=== PATIENT | female | born 1940 | race Caucasian/White ===

== ENCOUNTER 2024-09-22 12:45 | Emergency (ER) | payer MEDICARE, MEDICAID, SELFPAY ==
--- NOTE | ~2024-09-22 | XR_ITS ---
CLINICAL HISTORY: pain, injury, fx 2 view left wrist Comparison: None Findings: Markedly displaced comminuted fracture of the distal radius with articular surface extension to the radiocarpal joint. There is roughly 15 mm of posterior displacement, and roughly 24 mm of lateral displacement of the distal radial fracture fragments. There is a well corticated 18 mm ossific focus adjacent to the distal ulna. No significant arthritic change or erosions. No radiopaque foreign body. IMPRESSION: Markedly displaced comminuted distal radial fracture. This document has been electronically signed by: Naveed Seay MD on 09/22/2024 13:36:18
--- NOTE | ~2024-09-22 | XR_ITS ---
CLINICAL HISTORY: post reduction 2 view left wrist Comparison: 09/22/2024 01:18 PM EST Findings: A cast is present, obscuring fine bony detail. There is a moderately displaced impacted fracture of the distal radius with articular surface extension to the radiocarpal joint. Joint space narrowing and periarticular osteophyte formation at the radiocarpal, scaphotrapezial, and 1st carpometacarpal joints is present, indicating osteoarthritis. No radiopaque foreign body. IMPRESSION: Distal radial fracture. This document has been electronically signed by: Naveed Seay MD on 09/22/2024 16:31:28
--- NOTE | ~2024-09-22 | CT_ITS ---
CLINICAL HISTORY: fall, pain CT head without contrast Comparison: None Findings: Examination is limited by obliquity. No intra-axial mass, midline shift, hydrocephalus, or acute hemorrhage. Mild diffuse cerebral volume loss. Mild degree of patchy low-density within the periventricular and subcortical white matter. There is mild mucosal thickening within the right posterior ethmoid air cell. Mastoids are clear. The orbits are within normal limits. No skull fracture. IMPRESSION: 1. No acute intracranial findings. This document has been electronically signed by: Naveed Seay MD on 09/22/2024 14:27:26
--- NOTE | ~2024-09-22 | CT_ITS ---
CLINICAL HISTORY: fall, pain CT cervical spine without contrast Comparison: None Findings: Vertebral alignment is within normal limits. Multilevel disc space narrowing and endplate osteophyte formation, as well as facet hypertrophy. No acute fractures or dislocations. Visualized intracranial contents are unremarkable. Soft tissues of the neck are normal. No consolidation or effusion at the lung apices. IMPRESSION: No acute findings. This document has been electronically signed by: Naveed Seay MD on 09/22/2024 13:45:25
--- NOTE | 2024-09-22 12:55 | ED_ITS ---
HPI - General Adult General Chief complaint: Extremity Injury, Upper Stated complaint: L WRIST FX/PAIN/SWOLLEN,PORT XRAY @ SNF PER EMS Time Seen by Provider: 09/22/24 12:53 Source: patient, family (patient's daughter) and EMS Mode of arrival: EMS Limitations: other (patient has a history of alzheimer's) History of Present Illness ED Provider: Kesha Mauro PA-C HPI narrative: Patient is an 84 year old assigned female at with a history of alzheimer's disease, dementia, anemia, osteoarthritis, HTN, anxiety, and CAD presenting to the emergency department today with left wrist pain / deformity after a trip and fall. Patient states that she isn't sure what happened but her wrist is swollen. Patient denies any dizziness, lightheadedness, abdominal pain, nausea, vomiting, fever, chills, blurry vision, double vision, loss of vision, chest pain, difficulty breathing, shortness of breath, back pain, night sweats, pain with urination, increased urinary frequency, increased urinary urgency, blood in her urine or stool, syncope or a near syncopal episode, bowel incontinence, bladder incontinence, or any other complaints at this time. Onset (ago): hour(s) (at 0500 on 09/22/2024) Location: left (wrist) Relieving factors: none Exacerbating factors: none Associated symptoms: denies other symptoms Treatments prior to arrival: none Related Data Previous Rx's ?Medication ?Instructions ?Recorded amoxicillin 875 mg-potassium 1 tab PO BID 10 days #20 tabs 09/22/24 clavulanate 125 mg tablet amoxicillin 875 mg-potassium 1 tab PO BID 10 days #20 tabs 09/22/24 clavulanate 125 mg tablet Allergies Allergy/AdvReac Type Severity Reaction Status Date / Time aspirin Allergy Unknown Unknown Verified 09/22/24 13:02 Sulfa (Sulfonamide Allergy Unknown Unknown Verified 09/22/24 13:01 Antibiotics) Review of Systems 2 Constitutional: Constitutional: Reports no additional constitutional complaints, Denies chills, Denies fever(s) and Denies night sweats Eyes: Eyes: Reports no additional eye complaints, Denies blurry vision, Denies change in vision, Denies diplopia, Denies eye discharge, Denies loss of vision and Denies eye pain ENT: Denies dizziness Cardiovascular: Cardiovascular: Reports no additional cardiovascular complaints, Denies chest pain, Denies lightheadedness, Denies Loss of Consciousness and Denies dyspnea Respiratory: Respiratory: Reports no additional respiratory complaints and Denies dyspnea Gastrointestinal: Gastrointestinal: Reports no additional gastrointestinal complaints, Denies abdominal pain, Denies melena, Denies hematochezia, Denies change in bowel habits and Denies change in stool character Genitourinary: Genitourinary: Denies hematuria, Denies urinary frequency, Denies dysuria, Denies urinary incontinence, Denies urinary hesitancy and Denies urinary urgency Musculoskeletal: Musculoskeletal: Reports no additional musculoskeletal complaints, Denies numbness and Denies tingling Comments: left wrist pain, swelling Neurologic: Reports confusion (per her baseline, pleasant), Denies dizziness, Denies loss of vision, Denies numbness and Denies tingling Psychiatric: Psychiatric: Reports no additional psychiatric complaints and Reports confusion (per her baseline, pleasant) Endocrine: Endocrine: Reports no additional endocrine complaints Hematologic/Lymphatic: Hematologic/Lymphatic: Reports no additional hematologic/lymphatic complaints Allergic/Immunologic: Allergic/Immunologic: Reports no additional allergic/immunologic complaints PMFSH Past Medical History Attestation statement: The following information was validated with the patient. Source: old records reviewed and nursing notes reviewed Social History Social History Advance Directives: No Advance Directives Information Provided: No Physical Exam ED Vital Signs: Vital Signs - 24 hr 09/22/24 13:01 09/22/24 14:56 Temperature 97.8 F Pulse Rate 79 73 Respiratory Rate 18 17 Blood Pressure 155/64 H 189/79 H Pulse Oximetry 97 Oxygen Delivery Method Room Air BMI result Body Mass Index 21.9 Const General: confusion (per her baseline, pleasant) Nutritional Appearance: well nourished Orientation/consciousness: confusion (per her baseline, pleasant) Limitations: no limitations HENIN Head: Yes normal to inspection and Yes atraumatic Ears: hearing grossly normal bilaterally and external ears normal General nose exam: Normal external nose present, no nasal discharge noted and no epistaxis Face and sinus: Yes normal facial exam, No abrasion and No laceration Mouth: Normal oral and palatal mucosa present, no drooling and no muffled voice Eyes General: appearance normal, both eyes and all related structures Periorbital: periorbital findings normal Eyelids: Yes eyelids normal Conjunctivae: conjunctivae normal Pupils: Equal, round and reactive pupils present EOM: EOMs intact bilaterally Neck Neck: Yes normal visual inspection, Yes full ROM and Yes no lymphadenopathy Chest Chest palpation & inspection: normal inspection of the chest Resp Effort & Inspection: normal respiratory effort and able to speak in complete sentences GI Inspection: Yes normal to inspection Neuro General: confusion (per her baseline, pleasant) Cranial nerves: Yes Equal, round and reactive pupils present Cognition (Neuro): normal cognition Extrem Other: left dorsal wrist swollen, deformed, and bruised with limited ROM secondary to pain General: Yes capillary refill normal Psych Appearance: grossly normal Mental Status: mental status grossly normal Affect: normal affect Attitude: cooperative Thought process: Normal thought process present Thought content: Normal thought content present Insight: Good insight present (Psych) Medications Administered Discontinued Medications Generic Name Dose Route Start Last Admin Trade Name Freq PRN Reason Stop Dose Admin Acetaminophen 975 mg 09/22/24 13:40 09/22/24 13:57 Acetaminophen 325 Mg Tablet PO 09/22/24 13:41 975 mg ONCE ONE Administration Diazepam 2 mg 09/22/24 13:40 09/22/24 13:57 Diazepam 2 Mg Tablet PO 09/22/24 13:41 2 mg ONCE ONE Administration Ampicillin Sodium/Sulbactam 100 mls @ 200 mls/hr 09/22/24 14:59 09/22/24 16:10 Sodium 3 gm/ Sodium Chloride IV 09/22/24 15:28 Infused ONCE ONE Infusion Procedures Orthopedic Fracture Reduction Fracture #1: Time Out Performed: Yes Side: left Fracture Reduction Location: radius Technique: direct manipulation Post Reduction X-rays Demonstrate: anatomical reduction Post-reduction neuro exam: intact Post-reduction vascular exam: intact Splint Applied: Yes Patient Tolerated Procedure: well Orthopedic Splinting/Casting Injury #1: Side: left Upper Extremity Injury Location: wrist Upper Extremity Immobilizer: sling/shoulder immobilizer and sugar tong splint Medical Decision Making Medical Decision Making MDM Narrative: Patient is an 84 year old assigned female at with a history of alzheimer's disease, dementia, anemia, osteoarthritis, HTN, anxiety, and CAD presenting to the emergency department today with left wrist pain / deformity after a trip and fall. Patient's physical exam was as noted in the physical exam portion of this note. Patient's left wrist abrasion is on the ulnar aspect of the wrist and does not appear to be involved in the fracture however, given proximity, will cover with prophylactic antibiotic. Patient's left wrist x-ray showed a markedly displaced comminuted distal radial fracture. Patient's CT head and c-spine showed no acute process. I spoke to the orthopedic team who recommended reducing the fracture, splinting in a sugar tong, the prophylactic antibiotic, and having the patient follow up in the clinic on 09/24/2024. I explained my physical exam findings as well as all test results to the patient and the patient's daughter. I answered all questions asked by the patient and the patient's daughter. Patient's left wrist was reduced, without incident. Patient's PMS was intact prior to and after reduction. Patient's left wrist was placed in a sugar tong splint, without incident. Patient's PMS was intact prior to and after splint placement. Patient's left upper extremity was placed in a sling, without incident. I stressed the importance of the patient taking her medication as directed (either prescribed or as the over the counter packaging recommends). I stressed the importance of the patient following up with her primary care provider and the orthopedic team as noted. I stressed the importance of the patient returning to the emergency department immediately if her symptoms were to worsen or if she were to develop any dizziness, shortness of breath, difficulty breathing, chest pain, blurry vision, loss of vision, nausea, vomiting, abdominal pain, fever, chills, back pain, or any other complaints. Patient and the patient's daughter verbalized agreement and understanding with this treatment plan and discharge. Differential Diagnosis Differential Diagnoses: The differential diagnosis associated with the presentation includes Left wrist fracture Fall Admission/Observation Consideration of admission/observation: Escalation of care including admission/observation considered Patient would have been admitted to the hospital had her work up had any findings where hospital admission was appropriate and her clinical presentation warranted hospital admission. Consult Healthcare Provider Management of the patient was discussed with: Manager Membership (spoke to the orthopedic team as noted in the MDM Rationale portion of this note.) Independent Interpretation I performed an independent interpretation of an: Plain X-Ray and CT Scan Interpretation: My interpretation is in agreement with the radiologist's impression of these imaging studies. L CLINICAL HISTORY: pain, injury, fx 2 view left wrist Comparison: None Findings: Markedly displaced comminuted fracture of the distal radius with articular surface extension to the radiocarpal joint. There is roughly 15 mm of posterior displacement, and roughly 24 mm of lateral displacement of the distal radial fracture fragments. There is a well corticated 18 mm ossific focus adjacent to the distal ulna. No significant arthritic change or erosions. No radiopaque foreign body. IMPRESSION: Markedly displaced comminuted distal radial fracture. This document has been electronically signed by: Naveed Seay MD on 09/22/2024 13:36:18 Dictated By: Naveed Seay MD Signed By: Electronically signed by Naveed Seay MD 09/22/24 1336 Report Number: [id number]: Total DLP = 210.00 mGy-cm CLINICAL HISTORY: fall, pain CT cervical spine without contrast Comparison: None Findings: Vertebral alignment is within normal limits. Multilevel disc space narrowing and endplate osteophyte formation, as well as facet hypertrophy. No acute fractures or dislocations. Visualized intracranial contents are unremarkable. Soft tissues of the neck are normal. No consolidation or effusion at the lung apices. IMPRESSION: No acute findings. This document has been electronically signed by: Naveed Seay MD on 09/22/2024 13:45:25 Dictated By: Naveed Seay MD Signed By: Electronically signed by Naveed Seay MD 09/22/24 1346 Report Number: [id number]: Total DLP = 722.00 mGy-cm CLINICAL HISTORY: fall, pain CT head without contrast Comparison: None Findings: Examination is limited by obliquity. No intra-axial mass, midline shift, hydrocephalus, or acute hemorrhage. Mild diffuse cerebral volume loss. Mild degree of patchy low-density within the periventricular and subcortical white matter. There is mild mucosal thickening within the right posterior ethmoid air cell. Mastoids are clear. The orbits are within normal limits. No skull fracture. IMPRESSION: 1. No acute intracranial findings. This document has been electronically signed by: Naveed Seay MD on 09/22/2024 14:27:26 Dictated By: Naveed Seay MD Signed By: Electronically signed by Naveed Seay MD 09/22/24 1429 Radiology Impression Discussion of test interpretation with radiology: I have reviewed the radiologist's reading. Independent Historian Clinical information obtained from an independent historian. History obtained from or confirmed by: EMS (EMS provided additional history and confirmed history provided by SNF staff) and Other (patient's daughter provided additional history and confirmed the history given by SNF staff) Critical Care Time Critical Care Time Critical Care Time: Yes Total Critical Care Time: 34 Attestation: I spent 34 minutes of Critical Care Time with this patient. This does not include time spent on separately reported billable procedures. Discharge Plan Discharge Clinical Impression: Fracture of wrist, Abrasion Patient Disposition: Xfer SNF Transfer Details: Back to [place] Care Instructions: Wrist Fracture in Adults (ED), Abrasion (ED) Additional Instructions: Take your medication as prescribed. Do NOT get your splint wet. Do NOT remove your splint. If you have any change in sensation, movement, or color of your left fingers - you may loosen the outer KAYLEE wraps. If you find yourself loosening the KAYLEE wraps to the point of seeing the white splint material underneath - STOP and proceed to your closest Emergency Department immediately. Follow up with your primary care provider and the orthopedic office (they would like to see you in the office on 09/24/2024). Return to the emergency department immediately if your symptoms worsen or if you develop any dizziness, shortness of breath, difficulty breathing, chest pain, blurry vision, loss of vision, nausea, vomiting, abdominal pain, fever, chills, back pain, or any other complaints. Prescriptions: New amoxicillin-pot clavulanate 875-125 mg tablet 1 tab PO BID 10 Days Qty: 20 0RF amoxicillin-pot clavulanate 875-125 mg tablet 1 tab PO BID 10 Days Qty: 20 0RF Referrals: [facility] [Provider Group] (Call to establish and follow up with an orthopedic provider. ) Louis Brownlee MD [Primary Care Provider] - Print Language: Irish
[2024-09-22 12:56] VITALS: BP 148/66; PULSE 80
[2024-09-22 13:01] VITALS: BP 155/64; PULSE 79; RESP 18; TEMP 36.6; BMI 21.9
[2024-09-22] MEDS: Acetaminophen 325 MG TABLET 975 MG PO (13:57)
[2024-09-22] MEDS: diazePAM 2 MG TABLET PO (13:57)
[2024-09-22 14:56] VITALS: BP 189/79; PULSE 73; RESP 17; O2SAT 97
--- NOTE | 2024-09-22 15:09 | PC.NURSE ---
no blood cultures need per provider
[2024-09-22] MEDS: Ampicillin Sodium/Sulbactam Na 3 GM in 0.9 % Sodium Chloride 100 ML IV (15:14)
[2024-09-22] MEDS: Diphth,Pertus(ACell),Tet Adult 0.5 ML SYRINGE IM (16:42)
[2024-09-22 17:01] VITALS: BP 169/69; PULSE 75; RESP 18; TEMP 36.6; O2SAT 97
== END 2024-09-22 17:03 | disposition skilled nursing facility (03) ==
PROVIDERS: Emergency Provider Emergency Medicine; PCP Family Medicine
DX: S62.102A Fracture of unspecified carpal bone, left wrist, initial encounter for closed fracture (principal); S60.812A Abrasion of left wrist, initial encounter; F02.80 Dementia in other diseases classified elsewhere, unspecified severity, without behavioral disturbance, psychotic disturbance, mood disturbance, and anxiety; G30.9 Alzheimer's disease, unspecified; M25.532 Pain in left wrist; M25.531 Pain in right wrist; M54.2 Cervicalgia; R41.0 Disorientation, unspecified; R51.9 Headache, unspecified; I10 Essential (primary) hypertension; I25.10 Atherosclerotic heart disease of native coronary artery without angina pectoris; W01.0XXA Fall on same level from slipping, tripping and stumbling without subsequent striking against object, initial encounter; Y93.9 Activity, unspecified; Y92.9 Unspecified place or not applicable; Y99.8 Other external cause status; Z79.899 Other long term (current) drug therapy; Z23 Encounter for immunization
CPT/HCPCS: 25605; 29125; 70450; 72125; 73100; 73110; 90471; 90715; 96365; 99284; J0295

== ENCOUNTER → 2024-09-22 13:01 | Outpatient (BNV) | payer MEDICARE, MEDICAID, SELFPAY | PROVIDERS: Emergency Provider Emergency Medicine; PCP Family Medicine; Visit Provider Radiology Diagnostic Radiology | DX: M54.2 Cervicalgia (principal); R51.9 Headache, unspecified; S52.502A Unspecified fracture of the lower end of left radius, initial encounter for closed fracture; M25.531 Pain in right wrist; W01.0XXA Fall on same level from slipping, tripping and stumbling without subsequent striking against object, initial encounter | CPT/HCPCS: 70450; 72125; 73100; 73110 ==

== ENCOUNTER 2024-09-24 09:58 | Outpatient (REF) | payer MEDICARE, MEDICAID, SELFPAY ==
--- NOTE | ~2024-09-24 | XR_ITS ---
EXAMINATION: XR WRIST, LEFT CLINICAL INFORMATION: M25.532 - Pain in left wrist COMPARISON: 09/22/2024. TECHNIQUE: PA, lateral, and oblique views of the left wrist. FINDINGS: Casting material overlies the wrist, obscuring fine bony detail. Redemonstration of a moderately displaced, impacted comminuted fracture of the distal radius which is intra-articular. There is minimal dorsal angulation. There is what appears to be worsened dorsal displacement. There is persistent impaction. Disruption of the DRUJ, similar. No definite healing identified. Soft tissue swelling persists. No change in the appearance of the carpus. Postop changes at the base of the thumb. XR/XR wrist LT min 3V IMPRESSION: 1. Redemonstration of moderately displaced impacted comminuted fracture of the distal radius which is are intra-articular. Although projectional variance is present, there appears to be worsened dorsal displacement when compared with 09/22/2024 casted view. Electronically signed by: Ronak Harper MD 09/25/2024 01:41 PM BORIS
--- OUTSIDE RECORDS SUMMARY | 2024-09-25 11:57 | XMS_ITS | Encounter Summary ---
Author Organization [facility] Address [address] [place] [address] Care Team Providers Care Cylinder Machine Operator Name Role Phone Louis Brownlee MD Primary Care Provider [phone] Encounter Details Date Type Department Care Team (Late st Contact Info) Description 07/04/2024 Lab Requisition [facility] - Main Lab [address] [facility] [place] [address] Louis Brownlee MD [address] [facility] [address] [place], [phone] Altered mental status, unspecified; Other correction (current) drug therapy Social History Tobacco Use [...] PM EST Altered mental status, unspecified Other tank terminal gauger (current) drug therapy URINALYSIS WITH REFLEX MICROSCOPIC AND CULTURE Routine 07/03/2024 3:00 PM EST Altered mental status, unspecified Other tank terminal gauger (current) drug therapy CULTURE URINE Routine 07/03/2024 3:00 PM EST Altered mental status, unspecified Other correction (current) drug therapy documented in this encounter Results * (ABNORMAL) Urinalysis with reflex microscopic and culture (07/03/2024 3:00 PM EST) Specific [place] Urine 1.023 1.003 - 1.030 LAB URINALYSIS - AUTOMATED METHOD 07/04/2024 10:47 AM [facility] pH, Urine 6.0 5.0 - 8.0 pH LAB URINALYSIS - AUTOMATED METHOD 07/04/2024 10:47 AM [facility] Leukocytes, Urine Large(A) Negative LAB URINALYSIS - AUTOMATED METHOD 07/04/2024 10:47 AM [facility] Nitrite, Urine Negative Negative LAB URINALYSIS - AUTOMATED METHOD 07/04/2024 10:47 AM [facility] Protein, Urine 30(A) <=Trace mg/dL LAB URINALYSIS - AUTOMATED METHOD 07/04/2024 10:47 AM [facility] Glucose, Urine Negative Negative mg/dL LAB URINALYSIS - AUTOMATED METHOD 07/04/2024 10:47 AM [facility] Ketones, Urine Trace(A) Negative mg/dL LAB URINALYSIS - AUTOMATED METHOD 07/04/2024 10:47 AM [facility] Urobilinogen , Urine 0.2 0.2 - 1.0 mg/dL LAB URINALYSIS - AUTOMATED METHOD 07/04/2024 10:47 AM [facility] Bilirubin, Urine Negative Negative LAB URINALYSIS - AUTOMATED METHOD 07/04/2024 10:47 AM [facility] Blood, Urine Trace(A) Negative LAB URINALYSIS - AUTOMATED METHOD 07/04/2024 10:47 AM [facility] RBC, Urine 6.9(H) 0 - 4 /HPF LAB URINALYSIS - AUTOMATED METHOD 07/04/2024 10:47 AM [facility] WBC, Urine 1,532.2(H) 0 - 4 /HPF LAB URINALYSIS - AUTOMATED METHOD 07/04/2024 10:47 AM [facility] Squamous Epithelial, Urine 34 0 - 60 /LPF LAB URINALYSIS - AUTOMATED METHOD 07/04/2024 10:47 AM [facility] Crystals, Urine Light Calcium Oxalate crystals. /LPF LAB URINALYSIS - AUTOMATED METHOD 07/04/2024 10:47 AM [facility] Bacteria, Urine Many(A) Negative /HPF LAB URINALYSIS - AUTOMATED METHOD 07/04/2024 10:47 AM [facility] Hyaline Casts, Urine 0.9 0 - 3 /LPF LAB URINALYSIS - AUTOMATED METHOD 07/04/2024 10:47 AM [facility] Urine Urine specimen obtained by clean catch procedure / Unknown Non-blood Collection / Unknown 07/03/2024 3:00 PM EST 07/04/2024 9:23 AM EST us Louis Brownlee MD LAB URINE ORDERABLES Final Resul t Performing Organization Address [facility] de Phone Number [facility] [address] [place] [address], [place] [phone] * (ABNORMAL) Culture urine (07/03/2024 3:00 PM EST) Culture, Urine >100,000 CFU/mL Aerococcus urinae(A) EMILY 07/06/2024 1:59 PM [facility] Comment: Susceptibility testing not routinely [...] ORDER PATTI Final Result Performing Organization Address City/[facility]/ZIP Co de Phone Number [facility] [address] [place] [address], [place] [phone] documented in this encounter Visit Diagnoses Diagnosis Altered mental status, unspecified Other tank terminal gauger (current) drug therapy documented in this encounter Care Teams Cylinder Machine Operator Relationship Specialty Start Date End Date Louis Brownlee MD [address] [place] [address], [phone] PCP - General Family Medicine 07/04/24 documented as of this encounter
--- OUTSIDE RECORDS SUMMARY | 2024-09-25 11:57 | XMS_ITS | Encounter Summary ---
Author Organization [facility] Address [address] [place] [address] Care Team Providers Care Composing Room Machinist Apprentice Name Role Phone Louis Brownlee MD Primary Care Provider [phone] Encounter Details Date Type Department Care Team (Late st Contact Info) Description 07/16/2024 Lab Requisition [facility] - Main Lab [address] [place] [address] Louis Brownlee MD [address] [place] [address] [address] [place], [phone] Essential (primary) hypertension Social History Tobacco [...] LAB CHEMISTRY METHOD 07/17/2024 11:42 AM EST [facility] Potassium 4.3 3.5 - 5.5 mmol/L LAB CHEMISTRY METHOD 07/17/2024 11:42 AM EST [facility] Chloride 104 96 - 110 mmol/L LAB CHEMISTRY METHOD 07/17/2024 11:42 AM [facility] CO2 31 21 - 32 mmol/L LAB CHEMISTRY METHOD 07/17/2024 11:42 AM [facility] Anion Gap 4 3 - 11 LAB CHEMISTRY METHOD 07/17/2024 11:42 AM [facility] Glucose 82 70 - 100 mg/dL LAB CHEMISTRY METHOD 07/17/2024 11:42 AM [facility] BUN 20 5 - 25 mg/dL LAB CHEMISTRY METHOD 07/17/2024 11:42 AM [facility] Creatinine 0.82 0.50 - 1.10 mg/dL LAB CHEMISTRY METHOD 07/17/2024 11:42 AM [facility] eGFR 70 >=60 mL/min/1. 73m2 LAB CHEMISTRY METHOD 07/17/2024 11:42 AM [facility] Comment:Calculation based on the??Chronic Kidney Disease Epidemiology Collaboration (CKD-EPI) equation refit??without adjustment for race. BUN/Creatinine Ratio 24.4 LAB CHEMISTRY METHOD 07/17/2024 11:42 AM [facility] Calcium 8.9 8.5 - 10.5 mg/dL LAB CHEMISTRY METHOD 07/17/2024 11:42 AM [facility] AST (SGOT) 16 10 - 42 unit/L LAB CHEMISTRY METHOD 07/17/2024 11:42 AM [facility] ALT (SGPT) 11 10 - 60 unit/L LAB CHEMISTRY METHOD 07/17/2024 11:42 AM [facility] Alkaline Phosphatase 83 42 - 121 unit/L LAB CHEMISTRY METHOD 07/17/2024 11:42 AM [facility] Total Protein 6.5 6.0 - 8.0 g/dL LAB CHEMISTRY METHOD 07/17/2024 11:42 AM [facility] Albumin 3.3 3.2 - 5.0 g/dL LAB CHEMISTRY METHOD 07/17/2024 11:42 AM [facility] Total Bilirubin 0.3 0.0 - 1.4 mg/dL LAB CHEMISTRY METHOD 07/17/2024 11:42 AM [facility] Blood Venous blood specimen / Unknown Venipuncture / Unknown 07/17/2024 7:35 AM EST 07/17/2024 10:21 AM EST us Louis Brownlee MD LAB BLOOD ORDERABLES Final Resul t [facility] [address] [place] [address], * (ABNORMAL) Complete blood count (07/17/2024 7:35 AM EST) WBC 14.3(H) 4.8 - 10.8 K/mcL LAB HEMETOLOGY METHOD 07/17/2024 10:44 AM [facility] RBC 3.80 3.80 - 4.80 M/mcL LAB HEMETOLOGY METHOD 07/17/2024 10:44 AM [facility] Hemoglobin 11.1(L) 11.5 - 16.0 g/dL LAB HEMETOLOGY METHOD 07/17/2024 10:44 AM [facility] Hematocrit 36.2 35.0 - 47.0 % LAB HEMETOLOGY METHOD 07/17/2024 10:44 AM [facility] MCV 96.0 79.0 - 98.0 FL LAB HEMETOLOGY METHOD 07/17/2024 10:44 AM [facility] MCH 29.4 27.0 - 32.0 pcg LAB HEMETOLOGY METHOD 07/17/2024 10:44 AM [facility] MCHC 30.7(L) 32.0 - 37.0 g/dL LAB HEMETOLOGY METHOD 07/17/2024 10:44 AM [facility] RDW 12.2 11.0 - 15.0 % LAB HEMETOLOGY METHOD 07/17/2024 10:44 AM EST [facility] Platelets 419(H) 130 - 400 K/mcL LAB HEMETOLOGY METHOD 07/17/2024 10:44 AM EST [facility] MPV 10.2 7.0 - 11.0 FL LAB HEMETOLOGY METHOD 07/17/2024 10:44 AM EST [facility] NRBC 0.0 <1.0 % LAB HEMETOLOGY METHOD 07/17/2024 10:44 AM EST [facility] NRBC Absolute 0.00 <0.10 K/mcL LAB HEMETOLOGY METHOD 07/17/2024 10:44 AM [facility] Blood Venous blood specimen / Unknown Venipuncture / Unknown 07/17/2024 7:35 AM EST 07/17/2024 10:09 AM EST us Louis Brownlee MD LAB BLOOD ORDERABLES Final Resul t [facility] [address] [place] [address], documented in this encounter Visit Diagnoses Diagnosis Essential (primary) hypertension Unspecified essential hypertension documented in this encounter Care Teams Composing Room Machinist Apprentice Relationship Specialty Start Date End Date Louis Brownlee MD [address] [place] [phone] PCP - General Family Medicine 07/04/24 documented as of this encounter
--- OUTSIDE RECORDS SUMMARY | 2024-09-25 11:57 | XMS_ITS | Encounter Summary ---
Author Organization [facility] Address [address] [place] [address] Care Team Providers Care Pit Boss Name Role Phone Louis Brownlee MD Primary Care Provider [phone] Encounter Details Date Type Department Care Team (Late st Contact Info) Description 07/09/2024 Lab Requisition [facility] - Main Lab [address] [place] [address] Louis Brownlee MD [address] [place] [address] [address] [place], [phone] Essential (primary) hypertension Social History Tobacco [...] LAB CHEMISTRY METHOD 07/10/2024 12:28 PM EST [facility] Potassium 4.6 3.5 - 5.5 mmol/L LAB CHEMISTRY METHOD 07/10/2024 12:28 PM EST [facility] Chloride 110 96 - 110 mmol/L LAB CHEMISTRY METHOD 07/10/2024 12:28 PM [facility] CO2 25 21 - 32 mmol/L LAB CHEMISTRY METHOD 07/10/2024 12:28 PM [facility] Anion Gap 7 3 - 11 LAB CHEMISTRY METHOD 07/10/2024 12:28 PM [facility] Glucose 81 70 - 100 mg/dL LAB CHEMISTRY METHOD 07/10/2024 12:28 PM [facility] BUN 41(H) 5 - 25 mg/dL LAB CHEMISTRY METHOD 07/10/2024 12:28 PM [facility] Creatinine 1.09 0.50 - 1.10 mg/dL LAB CHEMISTRY METHOD 07/10/2024 12:28 PM [facility] eGFR 50(L) >=60 mL/min/1. 73m2 LAB CHEMISTRY METHOD 07/10/2024 12:28 PM [facility] Comment:Calculation based on the??Chronic Kidney Disease Epidemiology Collaboration (CKD-EPI) equation refit??without adjustment for race. BUN/Creatinine Ratio 37.6 LAB CHEMISTRY METHOD 07/10/2024 12:28 PM [facility] Calcium 9.0 8.5 - 10.5 mg/dL LAB CHEMISTRY METHOD 07/10/2024 12:28 PM [facility] Blood Venous blood specimen / Unknown Venipuncture / Unknown 07/10/2024 7:02 AM EST 07/10/2024 11:40 AM EST us Louis Brownlee MD LAB BLOOD ORDERABLES Final Resul t [facility] [address] [place] [address], * (ABNORMAL) Complete blood count (07/10/2024 7:02 AM EST) WBC 14.8(H) 4.8 - 10.8 K/mcL LAB HEMETOLOGY METHOD 07/10/2024 12:20 PM [facility] RBC 3.60(L) 3.80 - 4.80 M/mcL LAB HEMETOLOGY METHOD 07/10/2024 12:20 PM [facility] Hemoglobin 10.7(L) 11.5 - 16.0 g/dL LAB HEMETOLOGY METHOD 07/10/2024 12:20 PM [facility] Hematocrit 35.1 35.0 - 47.0 % LAB HEMETOLOGY METHOD 07/10/2024 12:20 PM [facility] MCV 98.0 79.0 - 98.0 FL LAB HEMETOLOGY METHOD 07/10/2024 12:20 PM [facility] MCH 29.9 27.0 - 32.0 pcg LAB HEMETOLOGY METHOD 07/10/2024 12:20 PM [facility] MCHC 30.5(L) 32.0 - 37.0 g/dL LAB HEMETOLOGY METHOD 07/10/2024 12:20 PM [facility] RDW 12.7 11.0 - 15.0 % LAB HEMETOLOGY METHOD 07/10/2024 12:20 PM [facility] Platelets 469(H) 130 - 400 K/mcL LAB HEMETOLOGY METHOD 07/10/2024 12:20 PM [facility] MPV 9.9 7.0 - 11.0 FL LAB HEMETOLOGY METHOD 07/10/2024 12:20 PM [facility] NRBC 0.0 <1.0 % LAB HEMETOLOGY METHOD 07/10/2024 12:20 PM [facility] NRBC Absolute 0.00 <0.10 K/mcL LAB HEMETOLOGY METHOD 07/10/2024 12:20 PM [facility] Blood Venous blood specimen / Unknown Venipuncture / Unknown 07/10/2024 7:02 AM EST 07/10/2024 11:40 AM EST us Louis Brownlee MD LAB BLOOD ORDERABLES Final Resul t [facility] ([facility]) [facility] [address] [place] [address], documented in this encounter Visit Diagnoses Diagnosis Essential (primary) hypertension Unspecified essential hypertension documented in this encounter Care Teams Pit Boss Relationship Specialty Start Date End Date Louis Brownlee MD [address] [place] [address] [address] [place], [phone] PCP - General Family Medicine 07/04/24 documented as of this encounter
--- OUTSIDE RECORDS SUMMARY | 2024-09-25 11:58 | XMS_ITS | Clinical Summary ---
Author Organization 299 [facility] Address [address] [place] [address] Phone Care Team Providers Care District Fire Management Officer Name Role Phone Louis Brownlee MD Primary Care Provider [phone] Encounters Date Type Department Care Team Description 07/27/2024 Lab Requisition [facility] Lab [address] [place] [phone] Louis Brownlee MD Atherosclerotic heart disease of [place] coronary artery without angina pectoris; Anemia, unspecified 07/16/2024 Lab Requisition [facility] Lab [address] [place] [phone] Louis Brownlee MD Essential (primary) hypertension 07/09/2024 Lab Requisition [facility] Lab [address] [place] [phone] Louis Brownlee MD Essential (primary) hypertension 07/04/2024 Lab Requisition [facility] [address] [place] [phone] Louis Brownlee MD Altered mental status, unspecified; Other salvage determiner (current) drug therapy from Last 3 Months [...] 4:47 AM EST Atherosclerotic heart disease of [place] coronary artery without angina pectoris Anemia, unspecified [...] PM EST Altered mental status, unspecified Other residential (current) drug therapy URINALYSIS WITH REFLEX MICROSCOPIC AND CULTURE Routine 07/03/2024 3:00 PM EST Altered mental status, unspecified Other salvage determiner (current) drug therapy CULTURE URINE Routine 07/03/2024 3:00 PM EST Altered mental status, unspecified Other residential (current) drug therapy from Last 3 Months Results * (ABNORMAL) Complete blood count (07/29/2024 4:47 AM EST) Only the most recent of3 resultswithin the time period is included. WBC 11.4(H) 4.8 - 10.8 K/mcL LAB HEMETOLOGY METHOD 07/29/2024 9:28 AM [facility] RBC 3.20(L) 3.80 - 4.80 M/mcL LAB HEMETOLOGY METHOD 07/29/2024 9:28 AM [facility] Hemoglobin 9.4(L) 11.5 - 16.0 g/dL LAB HEMETOLOGY METHOD 07/29/2024 9:28 AM [facility] Hematocrit 31.1(L) 35.0 - 47.0 % LAB HEMETOLOGY METHOD 07/29/2024 9:28 AM [facility] MCV 96.9 79.0 - 98.0 FL LAB HEMETOLOGY METHOD 07/29/2024 9:28 AM [facility] MCH 29.3 27.0 - 32.0 pcg LAB HEMETOLOGY METHOD 07/29/2024 9:28 AM [facility] MCHC 30.2(L) 32.0 - 37.0 g/dL LAB HEMETOLOGY METHOD 07/29/2024 9:28 AM [facility] RDW 12.9 11.0 - 15.0 % LAB HEMETOLOGY METHOD 07/29/2024 9:28 AM EST [facility] Platelets 260 130 - 400 K/mcL LAB HEMETOLOGY METHOD 07/29/2024 9:28 AM EST [facility] MPV 10.4 7.0 - 11.0 FL LAB HEMETOLOGY METHOD 07/29/2024 9:28 AM EST [facility] NRBC 0.0 <1.0 % LAB HEMETOLOGY METHOD 07/29/2024 9:28 AM EST [facility] NRBC Absolute 0.00 <0.10 K/mcL LAB HEMETOLOGY METHOD 07/29/2024 9:28 AM EST [facility] Blood Venous blood specimen / Unknown Venipuncture / Unknown 07/29/2024 4:47 AM EST 07/29/2024 8:28 AM EST us Louis Brownlee MD LAB BLOOD ORDERABLES Final Resul t [facility] [address] [place] [address], * Comprehensive metabolic panel (07/17/2024 7:35 AM EST) Sodium 139 133 - 145 mmol/L LAB CHEMISTRY METHOD 07/17/2024 11:42 AM EST [facility] Potassium 4.3 3.5 - 5.5 mmol/L LAB CHEMISTRY METHOD 07/17/2024 11:42 AM [facility] Chloride 104 96 - 110 mmol/L LAB CHEMISTRY METHOD 07/17/2024 11:42 AM [facility] CO2 31 21 - 32 mmol/L LAB CHEMISTRY METHOD 07/17/2024 11:42 AM EST [facility] Anion Gap 4 3 - 11 LAB CHEMISTRY METHOD 07/17/2024 11:42 AM [facility] Glucose 82 70 - 100 mg/dL LAB CHEMISTRY METHOD 07/17/2024 11:42 AM [facility] BUN 20 5 - 25 mg/dL LAB CHEMISTRY METHOD 07/17/2024 11:42 AM [facility] Creatinine 0.82 0.50 - 1.10 mg/dL LAB CHEMISTRY METHOD 07/17/2024 11:42 AM [facility] eGFR 70 >=60 mL/min/1. 73m2 LAB CHEMISTRY METHOD 07/17/2024 11:42 AM [facility] Comment:Calculation based on the??Chronic Kidney Disease Epidemiology Collaboration (CKD-EPI) equation refit??without adjustment for race. BUN/Creatinine Ratio 24.4 LAB CHEMISTRY METHOD 07/17/2024 11:42 AM [facility] Calcium 8.9 8.5 - 10.5 mg/dL LAB CHEMISTRY METHOD 07/17/2024 11:42 AM [facility] AST (SGOT) 16 10 - 42 unit/L LAB CHEMISTRY METHOD 07/17/2024 11:42 AM [facility] ALT (SGPT) 11 10 - 60 unit/L LAB CHEMISTRY METHOD 07/17/2024 11:42 AM [facility] Alkaline Phosphatase 83 42 - 121 unit/L LAB CHEMISTRY METHOD 07/17/2024 11:42 AM [facility] Total Protein 6.5 6.0 - 8.0 g/dL LAB CHEMISTRY METHOD 07/17/2024 11:42 AM [facility] Albumin 3.3 3.2 - 5.0 g/dL LAB CHEMISTRY METHOD 07/17/2024 11:42 AM [facility] Total Bilirubin 0.3 0.0 - 1.4 mg/dL LAB CHEMISTRY METHOD 07/17/2024 11:42 AM [facility] Blood Venous blood specimen / Unknown Venipuncture / Unknown 07/17/2024 7:35 AM EST 07/17/2024 10:21 AM EST us Louis Brownlee MD LAB BLOOD ORDERABLES Final Resul t [facility] [address] [place] [address], [place] [phone] * (ABNORMAL) Basic metabolic panel (07/10/2024 7:02 AM EST) Sodium 142 133 - 145 mmol/L LAB CHEMISTRY METHOD 07/10/2024 12:28 PM [facility] Potassium 4.6 3.5 - 5.5 mmol/L LAB CHEMISTRY METHOD 07/10/2024 12:28 PM [facility] Chloride 110 96 - 110 mmol/L LAB CHEMISTRY METHOD 07/10/2024 12:28 PM [facility] CO2 25 21 - 32 mmol/L LAB CHEMISTRY METHOD 07/10/2024 12:28 PM [facility] Anion Gap 7 3 - 11 LAB CHEMISTRY METHOD 07/10/2024 12:28 PM [facility] Glucose 81 70 - 100 mg/dL LAB CHEMISTRY METHOD 07/10/2024 12:28 PM [facility] BUN 41(H) 5 - 25 mg/dL LAB CHEMISTRY METHOD 07/10/2024 12:28 PM [facility] Creatinine 1.09 0.50 - 1.10 mg/dL LAB CHEMISTRY METHOD 07/10/2024 12:28 PM [facility] eGFR 50(L) >=60 mL/min/1. 73m2 LAB CHEMISTRY METHOD 07/10/2024 12:28 PM [facility] Comment:Calculation based on the??Chronic Kidney Disease Epidemiology Collaboration (CKD-EPI) equation refit??without adjustment for race. BUN/Creatinine Ratio 37.6 LAB CHEMISTRY METHOD 07/10/2024 12:28 PM [facility] Calcium 9.0 8.5 - 10.5 mg/dL LAB CHEMISTRY METHOD 07/10/2024 12:28 PM [facility] Blood Venous blood specimen / Unknown Venipuncture / Unknown 07/10/2024 7:02 AM EST 07/10/2024 11:40 AM EST us Louis Brownlee MD LAB BLOOD ORDERABLES Final Resul t [facility] [address] [place] [address], [place] [phone] * (ABNORMAL) Urinalysis with reflex microscopic and culture (07/03/2024 3:00 PM EST) Specific [place] Urine 1.023 1.003 - 1.030 LAB URINALYSIS - AUTOMATED METHOD 07/04/2024 10:47 AM [facility] pH, Urine 6.0 5.0 - 8.0 pH LAB URINALYSIS - AUTOMATED METHOD 07/04/2024 10:47 AM [facility] Leukocytes, Urine Large(A) Negative LAB URINALYSIS - AUTOMATED METHOD 07/04/2024 10:47 AM [facility] Nitrite, Urine Negative Negative LAB URINALYSIS - AUTOMATED METHOD 07/04/2024 10:47 AM [facility] Protein, Urine 30(A) <=Trace mg/dL LAB URINALYSIS - AUTOMATED METHOD 07/04/2024 10:47 AM [facility] Glucose, Urine Negative Negative mg/dL LAB URINALYSIS - AUTOMATED METHOD 07/04/2024 10:47 AM [facility] Ketones, Urine Trace(A) Negative mg/dL LAB URINALYSIS - AUTOMATED METHOD 07/04/2024 10:47 AM [facility] Urobilinogen , Urine 0.2 0.2 - 1.0 mg/dL LAB URINALYSIS - AUTOMATED METHOD 07/04/2024 10:47 AM [facility] Bilirubin, Urine Negative Negative LAB URINALYSIS - AUTOMATED METHOD 07/04/2024 10:47 AM [facility] Blood, Urine Trace(A) Negative LAB URINALYSIS - AUTOMATED METHOD 07/04/2024 10:47 AM [facility] RBC, Urine 6.9(H) 0 - 4 /HPF LAB URINALYSIS - AUTOMATED METHOD 07/04/2024 10:47 AM [facility] WBC, Urine 1,532.2(H) 0 - 4 /HPF LAB URINALYSIS - AUTOMATED METHOD 07/04/2024 10:47 AM [facility] Squamous Epithelial, Urine 34 0 - 60 /LPF LAB URINALYSIS - AUTOMATED METHOD 07/04/2024 10:47 AM [facility] Crystals, Urine Light Calcium Oxalate crystals. /LPF LAB URINALYSIS - AUTOMATED METHOD 07/04/2024 10:47 AM [facility] Bacteria, Urine Many(A) Negative /HPF LAB URINALYSIS - AUTOMATED METHOD 07/04/2024 10:47 AM [facility] Hyaline Casts, Urine 0.9 0 - 3 /LPF LAB URINALYSIS - AUTOMATED METHOD 07/04/2024 10:47 AM [facility] Urine Urine specimen obtained by clean catch procedure / Unknown Non-blood Collection / Unknown 07/03/2024 3:00 PM EST 07/04/2024 9:23 AM EST us Louis Brownlee MD LAB URINE ORDERABLES Final Resul t [facility] [address] [place] [address], * (ABNORMAL) Culture urine (07/03/2024 3:00 PM EST) Culture, Urine >100,000 CFU/mL Aerococcus urinae(A) EMILY 07/06/2024 1:59 PM EST [facility] ([facility] Comment: Susceptibility testing not routinely performed. [...] MICROBIOLOGY - GENERAL ORDER PATTI Final Result [facility] ([facility]) [facility] [address] [place] [address], [place] [phone] from Last 3 Months Insurance MEDICARE MEDICAID - [place] Care Teams District Fire Management Officer Relationship Specialty Start Date End Date Louis Brownlee MD [address] [place] [address] [address] [place], [phone] PCP - General Family Medicine 07/04/24
--- OUTSIDE RECORDS SUMMARY | 2024-09-25 11:58 | XMS_ITS | Continuity of Care Document ---
Author Organization [facility], [facility] Address [address] [place] [address] Care Team Providers Care Button Riveter Name Role Phone JAMAAL FLORES Primary Care Provider [facility] - 3RD FLOOR OTHER Assessment No assessment recorded. Plan of Treatment Reminders Order Date Submit Date Provider Last Modified By Organization Details Last Modified Time Details Appointments Acute Rounding Visit 2024 11:11A M Edie Serna NP Not available Not available Not available Lab None recorded. Referral None recorded. Procedures None recorded. Surgeries None recorded. Imaging None recorded. Medication Orders None recorded. Patient TargetsNo targets recorded. Patient InstructionsNo instructions recorded. Reason for Referral None Reported. Problems Name Problem SNOMED Code Status Onset Date Resolution Date Notes Provider Name and Address Organization Details Recorded Time Orthostatic hypotension 62429407 Active 2020 Modesta bartlett [facility] 13:44:57 Fracture of humerus 99653671 Active 2020 Modesta bartlett [facility] 13:45:01 Insomnia 242014050 Active 2020 Modesta bartlett [facility] 13:46:18 Constipation 06866516 Active 2020 Modesta bartlett [facility] 13:46:26 Essential hypertension 68127927 Active 2020 Modesta bartlett [facility] 13:46:27 Coronary arteriosclero sis 28386738 Active 2020 Adelina Galarza MD [address], [address], [place], [address] , [facility] 02/12/202 1 19:45:42 Dementia 50052354 Active 2022 PAT REARDON NP [address], [address], [place], [address], [facility] 3 12:53:33 Hyperlipidemi a 96117786 Active 2022 PAT REARDON NP [address], [address], [place], [address], [facility] 3 12:53:44 Depressive disorder 79235792 Active 2022 PAT REARDON NP [address], [address], [place], [address], [facility] [employer] [facility] 3 12:53:57 Osteoarthriti s 968366968 Active 2022 cheryle. right knee PAT REARDON NP [address], [address], [place], [address], [facility] [employer] [facility] 3 12:54:14 Hearing loss 29182387 Active 2022 PAT REARDON NP [address], [address], [place], [address], [facility] [employer] [facility] 3 12:54:24 History of migraine 022421118 Active 2022 PAT REARDON NP [address], [address], [place], [address], [facility] [employer] [facility] 3 12:57:42 Seasonal allergic rhinitis 281437403 Active 2022 PAT REARDON NP [address], [address], [place], [address], [facility] [employer] [facility] 3 12:57:51 Anemia 328403538 Active 2022 PAT REARDON NP [address], [address], [place], [address], [facility] [employer] [facility] 3 15:35:43 Falls 431956250 Active 2022 Edie Serna NP [address], [address], [place], [address], [facility] [employer] [facility] 3 15:07:17 Abrasion 406597548 Active 2022 Edie Serna NP [address], [address], [place], [address], [employer] [facility] 3 15:07:26 Pain in left arm 257838830 Active 2022 Edie Serna NP [address], [address], [place], [address], [facility] [facility] 3 15:08:01 Generalized headache 269439160 Active 2022 PAT REARDON NP [address], [address], [place], [address], [facility] [employer] [facility] 3 11:52:55 Acute COVID-19 4491355194 Active 2023 Adelina Galarza MD [address], [address], [place], [address], [facility] [facility] 4 18:51:00 Adult failure to thrive syndrome 239761020 Active 2023 Adelina Galarza MD [address], [address], [place], [address], [employer] [facility] 4 18:51:38 Problem Notes None recorded. Medical Equipment None Reported. Allergies Allergen ID Allergen Name Allergen Category Reaction Reaction Severity Criticality Documentation Date Start Date Code Code System Note Provider Name and Address Organization Details Recorded Time 69264 aspirin medicatio n Not available Not available Not available 09/08/2020 1191 RxNorm Not Available Not Available Not Available 37901 Substance with sulfonami de structure and antibacte rial mechanism of action (substanc e) medicatio n Not available Not available Not available 09/08/2020 26765 8003 SNOMED Not Available Not Available Not Available Vitals Date Recorded Body height Heart rate Respiratory rate Body temperature Oxygen saturation Oxygen saturation in Arterial blood by Pulse oximetry Systolic blood pressure Diastolic blood pressure Provider Name and Address Organization Details Last Updated DateTime 5 162.56 cm 72 /min 16 /min 98 [degF] 93 % 93 % 122 mm[Hg] 68 mm[Hg] PAT REARDON NP [address], [address], [place], [address], [place] [employer] [facility] 13:04:01 Social History Question Answer Notes LastModified by Organizat ion Details LastModified Time Tobacco Smoking Status Former Smoker Has quit on and off since 1996, quit for good 2019. Smoked a ppd since age 13 PAT REARDON NP [address], [address], [place], [address], [employer] [facility] 12/08/2022 12:55:26 Do You Have An Advance Directive? Yes [email or web address] Information not available 12/08/2022 What Is Your Level Of Alcohol Consumption? None [email or web address] Information not available 09/08/2020 What Is Your Code Status? DNR/DNI DNH, No G Tube, No Dialysis [email or web address] Information not available 12/08/2022 Do You Or Have You Ever Used E-cigarettes Or Vape? Never Used Electronic Cigarettes Information not available 09/11/2020 [facility] Information not available 09/11/2023 Legal Guardian? No Informati on not available 09/11/2023 Do You Have A Medical Power Of Physically Impaired Teacher? Yes Has HCP, Invoke Upon Admission [email or web address] Information not available 12/08/2022 What Was The Date Of Your Most Recent Tobacco Screening? 12/08/2022 [email or web address] Information not available 12/08/2022 Do You Have An Out Of Hospital DNR? Yes Information not available 09/11/2023 What Is Your Relationship Status? Information not available 09/11/2023 Do You Or Have You Ever Used Smokeless Tobacco? Never Used Smokeless Tobacco Information not available 09/11/2020 Do You Use Any Illicit Or Recreational Drugs? No Information not available 12/08/2022 Has Tobacco Cessation Counseling Been Provided? No [email or web address] Information not available 12/08/2022 How Many Years [...] Influenza, adjuvanted, quadrivalent, PF 3 [facility] 12[facility]02:22 Influenza, adjuvanted, quadrivalent, PF 2 [facility]2023 12:41:22 pneumococcal polysaccharide PPV23 3 completed [facility] 09/18/2023 12:41:56 COVID-19, mRNA, LNP-S, bivalent, PF, 30 mcg/0.3 mL dose 3 completed [facility] 09/18/2023 13:00:38 Influenza, adjuvanted, trivalent, PF 0 [facility] 10:36:00 Pneumococcal conjugate PCV 13 5 [facility] 10/09/2020 10:36:13 pneumococcal polysaccharide PPV23 8 [facility] 10/09/2020 10:36:23 Tdap 0 [facility] 10/09/2020 10:36:35 zoster recombinant 0 [facility] 10/09/2020 10:36:43 Past Encounters Encounter ID Performer Location Encounter Start Date Encounter Closed Date Diagnosis/Indication Diagnosis SNOMED-CT Code Diagnosis ICD10 Code Diagnosis Note [id number] Edie Serna NP [address] [address] 08/29/2024 08:07:46 08/30/2024 11:08:23 Urinary tract infectious disease 61390051 N39.0 exit seeking remains with slightly decreased agitationo n 12/6 started on augmentin 875/125mg po bid x 10days with probiotico n 12/12 clinically improving on abx, no s/swbc resolvingm onitor for changesnot e: she often refuses labs Dementia 81589200 F02.B0 With sl. declinecon ttrazodone 25 mg po bid and q 12 hours prn agitationd uloxetine 20 mg qdContinue supportive care, expect continued decline.HC P invokedMon itor mood and behaviors. Psych consult prn. 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 Hearing loss 98319000 H9 0.0 Hearing aids were lost.08/29 audiology referral for severe hearing lossneed to speak loudly into right ear or write things down to communicat e Excessive cerumen in ear canal 534521260 H61.23 pt with large amount of cerumen to bilateral earsdebrox 4 gtts tid to both ears, flush day 6monitor [id number] PAT REARDON, TREVON [address] [address] 09/24/2024 13:00:47 09/24/2024 13:20:19 Recurrent falls 974574551 R29.6 Unwittness ed fall 09/22 resulting in left wrist painX ray + for fx.PT OT eval and txMonitor neuros, VS Closed fra cture of left wrist 3500564184 0881482 S62.92XA s/p fall 09/22 resulting in left wrist fracture and [facility] [place], referred to OrthoHas appt. tomorrow with probable surgical interventi on thereafter .APAP prn painElevat e armMonitor CSMUpdate Ortho with concernsRe turned with order for Augmentin 875 mg bid x 10 days - unclear if for concern of abrasion infection vs. UTI or other etiology. Urinary tr act infectious disease 26285575 N39.0 ???Returne d with order for Augmentin 875 mg bid x 10 days, unclear as to why she is on thisMainta in fluidsMoni tor Health Concerns Section Related Observation LastModified by Organization Detai ls LastModified Time None Recorded Concern Status LastModified by Organization Details LastModified Time None Recorded Payers Encounter Date Sequence Insurance Name Policy Number Policy Rubio Covered Member ID Rubio Member ID Guarantor Name 09/24/2024 1 [place] [employer] Teena Gonzalez [id number] Teena Gonzalez 09/24/2024 2 [place] [facility] [id number] Teena Gonzalez Notes Date Note Type Note Provider Name and Address Organization Details Recorded Time 09/24/2024 text/html Teena is seen tod ay for an acute visit. She sustained a fall on 09/22, with resulting left wrist pain.X ray obtained, positive for fracture, sent to [facility] [place] and tx.Seen in ER, splint placed, referral made to Ortho for outpt. eval.Minimal paperwork for review, but Augmentin started 875 mg bid x 10 days, unclear as to why. No urine report seen, ? related to abrasion. Upon exam today, Teena is in bed, awake, alert, but appears tired. Communication difficult due to [place]. Family at bedside, no concerns, appears comfortable, trying to assist with po fluids.Has Ortho appt. tomorrow with probable surgical repair post appointment. PAT REARDON NP [address], [address], [place], [address], [facility] [employer] 09/24/2024 13:20:18 OBGyn Episode No OBEpisode recorded.
--- OUTSIDE RECORDS SUMMARY | 2024-09-25 11:58 | XMS_ITS | Encounter Summary ---
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 RBC 3.20(L) 3.80 - 4.80 M/mcL LAB HEMETOLOGY METHOD 07/29/2024 9:[address] [facility] Hemoglobin 9.4(L) 11.5 - 16.0 g/dL LAB HEMETOLOGY METHOD 07/29/2024 9:28 AM [facility] Hematocrit 31.1(L) 35.0 - 47.0 % LAB HEMETOLOGY METHOD 07/29/2024 9:28 AM [facility] MCV 96.9 79.0 - 98.0 FL LAB HEMETOLOGY METHOD 07/29/2024 9:[address] [facility] MCH 29.3 27.0 - 32.0 pcg LAB HEMETOLOGY METHOD 07/29/2024 9:28 AM [facility] MCHC 30.2(L) 32.0 - 37.0 g/dL LAB HEMETOLOGY METHOD 07/29/2024 9:28 AM [facility] RDW 12.9 11.0 - 15.0 % LAB HEMETOLOGY METHOD 07/29/2024 9:28 AM [facility] Platelets 260 130 - 400 K/mcL LAB HEMETOLOGY METHOD 07/29/2024 9:28 AM [facility] MPV 10.4 7.0 - 11.0 FL LAB HEMETOLOGY METHOD 07/29/2024 9:28 AM [facility] NRBC 0.0 <1.0 % LAB HEMETOLOGY METHOD 07/29/2024 9:[address] [facility] NRBC Absolute 0.00 <0.10 K/mcL LAB HEMETOLOGY METHOD 07/29/2024 9:28 AM [facility] Blood Venous blood specimen / Unknown Venipuncture / Unknown 07/29/2024 4:47 AM EST 07/29/2024 8:28 AM EST us Louis Brownlee MD LAB BLOOD ORDERABLES Final Resul t 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
== END 2024-09-24 09:59 | disposition home or self-care (01) ==
LOC: HO.HOSX 09:58
PROVIDERS: Visit Provider Orthopaedic Surgery
DX: M25.532 Pain in left wrist (principal); S52.572D Other intraarticular fracture of lower end of left radius, subsequent encounter for closed fracture with routine healing
CPT/HCPCS: 73110

== ENCOUNTER 2024-09-25 07:57 | Outpatient (AMB) | payer MEDICARE, MEDICAID, SELFPAY ==
--- OUTSIDE RECORDS SUMMARY | 2024-09-25 08:04 | XMS_ITS | Encounter Summary ---
Author Organization [facility] Address [address] [place] [address] Care Team Providers Care Acid Leveler Name Role Phone Louis Brownlee MD Primary Care Provider [phone] Encounter Details Date Type Department Care Team (Late st Contact Info) Description 07/09/2024 Lab Requisition [facility] [address] [place] [address] Louis Brownlee MD [address] [place] [address] [address], [phone] Essential (primary) hypertension Social History Tobacco Use Types Packs/Day Years Used Date Smoking Tobacco: Never Assessed Comments Unknown Sex and Gender Information Value Date Recorded Sex Assigned at Not on file Legal Sex Female 8:07 PM EST Gender Identity Not on file Sexual Orientation Not on file documented as of this encounter Plan of Treatment Not on file documented as of this encounter Procedures Procedure Name Priority Date/Time Associated Diagnosis Comments COMPLETE BLOOD COUNT Routine 07/10/2024 7:02 AM EST Essential (primary) hypertension BASIC METABOLIC PANEL Routine 07/10/2024 7:02 AM EST Essential (primary) hypertension documented in this encounter Results * (ABNORMAL) Basic metabolic panel (07/10/2024 7:02 AM EST) Sodium 142 133 - 145 mmol/L LAB CHEMISTRY METHOD 07/10/2024 12:28 PM EST [facility] Potassium 4.6 3.5 - 5.5 mmol/L LAB CHEMISTRY METHOD 07/10/2024 12:28 PM EST [facility] Chloride 110 96 - 110 mmol/L LAB CHEMISTRY METHOD 07/10/2024 12:28 PM [facility] CO2 25 21 - 32 mmol/L LAB CHEMISTRY METHOD 07/10/2024 12:28 PM [facility] Anion Gap 7 3 - 11 LAB CHEMISTRY METHOD 07/10/2024 12:28 PM [facility] Glucose 81 70 - 100 mg/dL LAB CHEMISTRY METHOD 07/10/2024 12:28 PM [facility] BUN 41(H) 5 - 25 mg/dL LAB CHEMISTRY METHOD 07/10/2024 12:28 PM [facility] Creatinine 1.09 0.50 - 1.10 mg/dL LAB CHEMISTRY METHOD 07/10/2024 12:28 PM [facility] eGFR 50(L) >=60 mL/min/1. 73m2 LAB CHEMISTRY METHOD 07/10/2024 12:28 PM [facility] Comment:Calculation based on the??Chronic Kidney Disease Epidemiology Collaboration (CKD-EPI) equation refit??without adjustment for race. BUN/Creatinine Ratio 37.6 LAB CHEMISTRY METHOD 07/10/2024 12:28 PM [facility] Calcium 9.0 8.5 - 10.5 mg/dL LAB CHEMISTRY METHOD 07/10/2024 12:28 PM [facility] Blood Venous blood specimen / Unknown Venipuncture / Unknown 07/10/2024 7:02 AM EST 07/10/2024 11:40 AM EST us Louis Brownlee MD LAB BLOOD ORDERABLES Final Resul t [facility] [address] [place] [address], * (ABNORMAL) Complete blood count (07/10/2024 7:02 AM EST) WBC 14.8(H) 4.8 - 10.8 K/mcL LAB HEMETOLOGY METHOD 07/10/2024 12:20 PM [facility] RBC 3.60(L) 3.80 - 4.80 M/mcL LAB HEMETOLOGY METHOD 07/10/2024 12:20 PM [facility] Hemoglobin 10.7(L) 11.5 - 16.0 g/dL LAB HEMETOLOGY METHOD 07/10/2024 12:20 PM [facility] Hematocrit 35.1 35.0 - 47.0 % LAB HEMETOLOGY METHOD 07/10/2024 12:20 PM [facility] MCV 98.0 79.0 - 98.0 FL LAB HEMETOLOGY METHOD 07/10/2024 12:20 PM [facility] MCH 29.9 27.0 - 32.0 pcg LAB HEMETOLOGY METHOD 07/10/2024 12:20 PM [facility] MCHC 30.5(L) 32.0 - 37.0 g/dL LAB HEMETOLOGY METHOD 07/10/2024 12:20 PM [facility] RDW 12.7 11.0 - 15.0 % LAB HEMETOLOGY METHOD 07/10/2024 12:20 PM [facility] Platelets 469(H) 130 - 400 K/mcL LAB HEMETOLOGY METHOD 07/10/2024 12:20 PM [facility] MPV 9.9 7.0 - 11.0 FL LAB HEMETOLOGY METHOD 07/10/2024 12:20 PM [facility] NRBC 0.0 <1.0 % LAB HEMETOLOGY METHOD 07/10/2024 12:20 PM [facility] NRBC Absolute 0.00 <0.10 K/mcL LAB HEMETOLOGY METHOD 07/10/2024 12:20 PM [facility] Blood Venous blood specimen / Unknown Venipuncture / Unknown 07/10/2024 7:02 AM EST 07/10/2024 11:40 AM EST us Louis Brownlee MD LAB BLOOD ORDERABLES Final Resul t [facility] [address] [place] [address], documented in this encounter Visit Diagnoses Diagnosis Essential (primary) hypertension Unspecified essential hypertension documented in this encounter Care Teams Acid Leveler Relationship Specialty Start Date End Date Louis Brownlee MD [address] [place] [address] [address], [id number] PCP - General Family Medicine 07/04/24 documented as of this encounter
--- OUTSIDE RECORDS SUMMARY | 2024-09-25 08:04 | XMS_ITS | Clinical Summary ---
Author Organization [address] [facility] Address [address] [place] [address] Phone Care Team Providers Care Upholstery Sewer Name Role Phone Louis Brownlee MD Primary Care Provider [phone] Encounters Date Type Department Care Team Description 07/27/2024 Lab Requisition [facility] [address] [place] [phone] Louis Brownlee MD Atherosclerotic heart disease of cheesh-na coronary artery without angina pectoris; Anemia, unspecified 07/16/2024 Lab Requisition [facility] [address] [place] [phone] Louis Brownlee MD Essential (primary) hypertension 07/09/2024 Lab Requisition [facility] [address] [place] [phone] Louis Brownlee MD Essential (primary) hypertension 07/04/2024 Lab Requisition [facility] [address] [place] [phone] Louis Brownlee MD Altered mental status, unspecified; 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 from Last 3 Months Social History Tobacco Use Types Packs/Day Years Used Date Smoking Tobacco: Never Assessed Comments Unknown Sex and Gender Information Value Date Recorded Sex Assigned at Not on file Legal Sex Female 8:07 PM EST Gender Identity Not on file Sexual Orientation Not on file Plan of Treatment Health Maintenance Due Date Last Done Comments DTaP,Tdap,and Td Vaccines (1 - Tdap) 1959 Pneumococcal Vaccine: 50+ Years (1 of 1 - PCV) 02/20/1988 Zoster Vaccines (1 of 2) 02/20/1988 RSV Immunization Patients 60 + Years Old (1 - 1-dose 75+ series) 2013 Cholesterol Screening (Lipid Panel) 08/24/2023 Depression Screening 08/24/2023 Falls Risk Assessment 08/24/2023 Medicare Annual Wellness Visit 08/24/2023 Osteoporosis Screening (Bone Density Screening) 08/24/2023 Social Influencers of Health Screening 08/24/2023 COVID-19 Vaccine ( - 2023-2 5 season) 2024 Influenza Vaccine (#1) 2024 Hypertension/CHF/CAD Annual BMP Blood Test 07/17/2025 07/17/2024, 07/10/2024 HIB Vaccines Aged Out No longer eligi ble based on patient's age to complete this topic HPV Vaccines Aged Out No longer eligi ble based on patient's age to complete this topic Hepatitis A Vaccines Aged Out No long er eligible based on patient's age to complete this topic Hepatitis B Vaccines Aged Out No long er eligible based on patient's age to complete this topic IPV Vaccines Aged Out No longer eligi ble based on patient's age to complete this topic MMR Vaccines Aged Out No longer eligi ble based on patient's age to complete this topic Meningococcal ACWY Vaccine Aged Out N o longer eligible based on patient's age to complete this topic Meningococcal B Vacine Aged Out No lo nger eligible based on patient's age to complete this topic RSV Immunization Patients Under 20 months Aged Out No longer eligible b ased on patient's age to complete this topic Varicella Vaccines Aged Out No longer eligible based on patient's age to complete this topic Procedures Procedure Name Priority Date/Time Associated Diagnosis Comments COMPLETE BLOOD COUNT Routine 07/29/2024 4:47 AM EST Atherosclerotic heart disease of cheesh-na coronary artery without angina pectoris Anemia, unspecified COMPREHENSIVE METABOLIC PANEL Routine 07/17/2024 7:35 AM EST Essential (primary) hypertension COMPLETE BLOOD COUNT Routine 07/17/2024 7:35 AM EST Essential (primary) hypertension BASIC METABOLIC PANEL Routine 07/10/2024 7:02 AM EST Essential (primary) hypertension COMPLETE BLOOD COUNT Routine 07/10/2024 7:02 AM EST Essential (primary) hypertension URINALYSIS WITH REFLEX MICROSCOPIC AND CULTURE Routine 07/03/2024 3:00 PM EST Altered mental status, unspecified Other fdc (current) drug therapy URINALYSIS WITH REFLEX MICROSCOPIC AND CULTURE Routine 07/03/2024 3:00 PM EST Altered mental status, unspecified 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 CULTURE URINE Routine 07/03/2024 3:00 PM EST Altered mental status, unspecified Other fdc (current) drug therapy from Last 3 Months Results * (ABNORMAL) Complete blood count (07/29/2024 4:47 AM EST) Only the most recent of3 resultswithin the time period is included. WBC 11.4(H) 4.8 - 10.8 K/mcL LAB HEMETOLOGY METHOD 07/29/2024 9:28 AM [facility] RBC 3.20(L) 3.80 - 4.80 M/mcL LAB HEMETOLOGY METHOD 07/29/2024 9:28 AM [facility] Hemoglobin 9.4(L) 11.5 - 16.0 g/dL LAB HEMETOLOGY METHOD 07/29/2024 9:28 AM [facility] Hematocrit 31.1(L) 35.0 - 47.0 % LAB HEMETOLOGY METHOD 07/29/2024 9:28 AM [facility] MCV 96.9 79.0 - 98.0 FL LAB HEMETOLOGY METHOD 07/29/2024 9:28 AM [facility] MCH 29.3 27.0 - 32.0 pcg LAB HEMETOLOGY METHOD 07/29/2024 9:28 AM [facility] MCHC 30.2(L) 32.0 - 37.0 g/dL LAB HEMETOLOGY METHOD 07/29/2024 9:28 AM [facility] RDW 12.9 11.0 - 15.0 % LAB HEMETOLOGY METHOD 07/29/2024 9:28 AM EST [facility] Platelets 260 130 - 400 K/mcL LAB HEMETOLOGY METHOD 07/29/2024 9:28 AM EST [facility] MPV 10.4 7.0 - 11.0 FL LAB HEMETOLOGY METHOD 07/29/2024 9:28 AM EST [facility] NRBC 0.0 <1.0 % LAB HEMETOLOGY METHOD 07/29/2024 9:28 AM EST [facility] NRBC Absolute 0.00 <0.10 K/mcL LAB HEMETOLOGY METHOD 07/29/2024 9:28 AM EST [facility] Blood Venous blood specimen / Unknown Venipuncture / Unknown 07/29/2024 4:47 AM EST 07/29/2024 8:28 AM EST us Louis Brownlee MD LAB BLOOD ORDERABLES Final Resul t [facility] [address] [place] [address], * Comprehensive metabolic panel (07/17/2024 7:35 AM EST) Sodium 139 133 - 145 mmol/L LAB CHEMISTRY METHOD 07/17/2024 11:42 AM EST [facility] Potassium 4.3 3.5 - 5.5 mmol/L LAB CHEMISTRY METHOD 07/17/2024 11:42 AM [facility] Chloride 104 96 - 110 mmol/L LAB CHEMISTRY METHOD 07/17/2024 11:42 AM [facility] CO2 31 21 - 32 mmol/L LAB CHEMISTRY METHOD 07/17/2024 11:42 AM EST [facility] Anion Gap 4 3 - 11 LAB CHEMISTRY METHOD 07/17/2024 11:42 AM [facility] Glucose 82 70 - 100 mg/dL LAB CHEMISTRY METHOD 07/17/2024 11:42 AM [facility] BUN 20 5 - 25 mg/dL LAB CHEMISTRY METHOD 07/17/2024 11:42 AM [facility] Creatinine 0.82 0.50 - 1.10 mg/dL LAB CHEMISTRY METHOD 07/17/2024 11:42 AM [facility] eGFR 70 >=60 mL/min/1. 73m2 LAB CHEMISTRY METHOD 07/17/2024 11:42 AM [facility] Comment:Calculation based on the??Chronic Kidney Disease Epidemiology Collaboration (CKD-EPI) equation refit??without adjustment for race. BUN/Creatinine Ratio 24.4 LAB CHEMISTRY METHOD 07/17/2024 11:42 AM [facility] Calcium 8.9 8.5 - 10.5 mg/dL LAB CHEMISTRY METHOD 07/17/2024 11:42 AM [facility] AST (SGOT) 16 10 - 42 unit/L LAB CHEMISTRY METHOD 07/17/2024 11:42 AM [facility] ALT (SGPT) 11 10 - 60 unit/L LAB CHEMISTRY METHOD 07/17/2024 11:42 AM [facility] Alkaline Phosphatase 83 42 - 121 unit/L LAB CHEMISTRY METHOD 07/17/2024 11:42 AM [facility] Total Protein 6.5 6.0 - 8.0 g/dL LAB CHEMISTRY METHOD 07/17/2024 11:42 AM [facility] Albumin 3.3 3.2 - 5.0 g/dL LAB CHEMISTRY METHOD 07/17/2024 11:42 AM [facility] Total Bilirubin 0.3 0.0 - 1.4 mg/dL LAB CHEMISTRY METHOD 07/17/2024 11:42 AM [facility] Blood Venous blood specimen / Unknown Venipuncture / Unknown 07/17/2024 7:35 AM EST 07/17/2024 10:21 AM EST us Louis Brownlee MD LAB BLOOD ORDERABLES Final Resul t [facility] [address] [place] [address], [place] [phone] * (ABNORMAL) Basic metabolic panel (07/10/2024 7:02 AM EST) Sodium 142 133 - 145 mmol/L LAB CHEMISTRY METHOD 07/10/2024 12:28 PM [facility] Potassium 4.6 3.5 - 5.5 mmol/L LAB CHEMISTRY METHOD 07/10/2024 12:28 PM [facility] Chloride 110 96 - 110 mmol/L LAB CHEMISTRY METHOD 07/10/2024 12:28 PM [facility] CO2 25 21 - 32 mmol/L LAB CHEMISTRY METHOD 07/10/2024 12:28 PM [facility] Anion Gap 7 3 - 11 LAB CHEMISTRY METHOD 07/10/2024 12:28 PM [facility] Glucose 81 70 - 100 mg/dL LAB CHEMISTRY METHOD 07/10/2024 12:28 PM [facility] BUN 41(H) 5 - 25 mg/dL LAB CHEMISTRY METHOD 07/10/2024 12:28 PM [facility] Creatinine 1.09 0.50 - 1.10 mg/dL LAB CHEMISTRY METHOD 07/10/2024 12:28 PM [facility] eGFR 50(L) >=60 mL/min/1. 73m2 LAB CHEMISTRY METHOD 07/10/2024 12:28 PM [facility] Comment:Calculation based on the??Chronic Kidney Disease Epidemiology Collaboration (CKD-EPI) equation refit??without adjustment for race. BUN/Creatinine Ratio 37.6 LAB CHEMISTRY METHOD 07/10/2024 12:28 PM [facility] Calcium 9.0 8.5 - 10.5 mg/dL LAB CHEMISTRY METHOD 07/10/2024 12:28 PM [facility] Blood Venous blood specimen / Unknown Venipuncture / Unknown 07/10/2024 7:02 AM EST 07/10/2024 11:40 AM EST us Louis Brownlee MD LAB BLOOD ORDERABLES Final Resul t [facility] [address] [place] [address], [place] [phone] * (ABNORMAL) Urinalysis with reflex microscopic and culture (07/03/2024 3:00 PM EST) Specific [place] Urine 1.023 1.003 - 1.030 LAB URINALYSIS - AUTOMATED METHOD 07/04/2024 10:47 AM [facility] pH, Urine 6.0 5.0 - 8.0 pH LAB URINALYSIS - AUTOMATED METHOD 07/04/2024 10:47 AM [facility] Leukocytes, Urine Large(A) Negative LAB URINALYSIS - AUTOMATED METHOD 07/04/2024 10:47 AM [facility] Nitrite, Urine Negative Negative LAB URINALYSIS - AUTOMATED METHOD 07/04/2024 10:47 AM [facility] Protein, Urine 30(A) <=Trace mg/dL LAB URINALYSIS - AUTOMATED METHOD 07/04/2024 10:47 AM [facility] Glucose, Urine Negative Negative mg/dL LAB URINALYSIS - AUTOMATED METHOD 07/04/2024 10:47 AM [facility] Ketones, Urine Trace(A) Negative mg/dL LAB URINALYSIS - AUTOMATED METHOD 07/04/2024 10:47 AM [facility] Urobilinogen , Urine 0.2 0.2 - 1.0 mg/dL LAB URINALYSIS - AUTOMATED METHOD 07/04/2024 10:47 AM [facility] Bilirubin, Urine Negative Negative LAB URINALYSIS - AUTOMATED METHOD 07/04/2024 10:47 AM [facility] Blood, Urine Trace(A) Negative LAB URINALYSIS - AUTOMATED METHOD 07/04/2024 10:47 AM [facility] RBC, Urine 6.9(H) 0 - 4 /HPF LAB URINALYSIS - AUTOMATED METHOD 07/04/2024 10:47 AM [facility] WBC, Urine 1,532.2(H) 0 - 4 /HPF LAB URINALYSIS - AUTOMATED METHOD 07/04/2024 10:47 AM [facility] Squamous Epithelial, Urine 34 0 - 60 /LPF LAB URINALYSIS - AUTOMATED METHOD 07/04/2024 10:47 AM [facility] Crystals, Urine Light Calcium Oxalate crystals. /LPF LAB URINALYSIS - AUTOMATED METHOD 07/04/2024 10:47 AM [facility] Bacteria, Urine Many(A) Negative /HPF LAB URINALYSIS - AUTOMATED METHOD 07/04/2024 10:47 AM [facility] Hyaline Casts, Urine 0.9 0 - 3 /LPF LAB URINALYSIS - AUTOMATED METHOD 07/04/2024 10:47 AM [facility] Urine Urine specimen obtained by clean catch procedure / Unknown Non-blood Collection / Unknown 07/03/2024 3:00 PM EST 07/04/2024 9:23 AM EST us Louis Brownlee MD LAB URINE ORDERABLES Final Resul t [facility] [address] [place] [address], * (ABNORMAL) Culture urine (07/03/2024 3:00 PM EST) Culture, Urine >100,000 CFU/mL Aerococcus urinae(A) EMILY 07/06/2024 1:59 PM EST [facility] Comment: Susceptibility testing not routinely performed. ??If further therapeutic information is required, please consult an infectious disease specialist. This is an edited result. Previous organism was Streptococcus alpha-hemolytic on 07/05/2024 at 1100 EST. Urine Urine specimen obtained by clean catch procedure / Unknown Non-blood Collection / Unknown 07/03/2024 3:00 PM EST 07/04/2024 9:23 AM EST us Louis Brownlee MD LAB MICROBIOLOGY - GENERAL ORDER PATTI Final Result [facility] ([facility]) [facility] [address] [place] [address], [place] [phone] from Last 3 Months Insurance MEDICARE MEDICAID - [place] Care Teams Upholstery Sewer Relationship Specialty Start Date End Date Louis Brownlee MD [address] [place] [address] [address] [place], [phone] PCP - General Family Medicine 07/04/24
--- OUTSIDE RECORDS SUMMARY | 2024-09-25 08:04 | XMS_ITS | Encounter Summary ---
Author Organization [facility] Address [address] [place] [address] Care Team Providers Care Cardiac Cath Lab Technologist Name Role Phone Louis Brownlee MD Primary Care Provider [phone] Encounter Details Date Type Department Care Team (Late st Contact Info) Description 07/04/2024 Lab Requisition [facility] - Main Lab [address] [facility] [place] [address] Louis Brownlee MD [address] [facility] [address] [place], [phone] Altered mental status, unspecified; Other usp (current) drug therapy Social History Tobacco Use Types Packs/Day Years [...] Procedure Name Priority Date/Time Associated Diagnosis Comments URINALYSIS WITH REFLEX MICROSCOPIC AND CULTURE Routine 07/03/2024 3:00 PM EST Altered mental status, unspecified 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 URINALYSIS WITH REFLEX MICROSCOPIC AND CULTURE Routine 07/03/2024 3:00 PM EST Altered mental status, unspecified 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 CULTURE URINE Routine 07/03/2024 3:00 PM EST Altered mental status, unspecified Other usp (current) drug therapy documented in this encounter Results * (ABNORMAL) Urinalysis with reflex microscopic and culture (07/03/2024 3:00 PM EST) Specific [place] Urine 1.023 1.003 - 1.030 LAB URINALYSIS - AUTOMATED METHOD 07/04/2024 10:47 AM [facility] pH, Urine 6.0 5.0 - 8.0 pH LAB URINALYSIS - AUTOMATED METHOD 07/04/2024 10:47 AM [facility] Leukocytes, Urine Large(A) Negative LAB URINALYSIS - AUTOMATED METHOD 07/04/2024 10:47 AM [facility] Nitrite, Urine Negative Negative LAB URINALYSIS - AUTOMATED METHOD 07/04/2024 10:47 AM [facility] Protein, Urine 30(A) <=Trace mg/dL LAB URINALYSIS - AUTOMATED METHOD 07/04/2024 10:47 AM [facility] Glucose, Urine Negative Negative mg/dL LAB URINALYSIS - AUTOMATED METHOD 07/04/2024 10:47 AM [facility] Ketones, Urine Trace(A) Negative mg/dL LAB URINALYSIS - AUTOMATED METHOD 07/04/2024 10:47 AM [facility] Urobilinogen , Urine 0.2 0.2 - 1.0 mg/dL LAB URINALYSIS - AUTOMATED METHOD 07/04/2024 10:47 AM [facility] Bilirubin, Urine Negative Negative LAB URINALYSIS - AUTOMATED METHOD 07/04/2024 10:47 AM [facility] Blood, Urine Trace(A) Negative LAB URINALYSIS - AUTOMATED METHOD 07/04/2024 10:47 AM [facility] RBC, Urine 6.9(H) 0 - 4 /HPF LAB URINALYSIS - AUTOMATED METHOD 07/04/2024 10:47 AM [facility] WBC, Urine 1,532.2(H) 0 - 4 /HPF LAB URINALYSIS - AUTOMATED METHOD 07/04/2024 10:47 AM [facility] Squamous Epithelial, Urine 34 0 - 60 /LPF LAB URINALYSIS - AUTOMATED METHOD 07/04/2024 10:47 AM [facility] Crystals, Urine Light Calcium Oxalate crystals. /LPF LAB URINALYSIS - AUTOMATED METHOD 07/04/2024 10:47 AM [facility] Bacteria, Urine Many(A) Negative /HPF LAB URINALYSIS - AUTOMATED METHOD 07/04/2024 10:47 AM [facility] Hyaline Casts, Urine 0.9 0 - 3 /LPF LAB URINALYSIS - AUTOMATED METHOD 07/04/2024 10:47 AM [facility] Urine Urine specimen obtained by clean catch procedure / Unknown Non-blood Collection / Unknown 07/03/2024 3:00 PM EST 07/04/2024 9:23 AM EST us Louis Brownlee MD LAB URINE ORDERABLES Final Resul t Performing Organization Address [facility] de Phone Number [facility] [address] [place] [address], [place] [phone] * (ABNORMAL) Culture urine (07/03/2024 3:00 PM EST) Culture, Urine >100,000 CFU/mL Aerococcus urinae(A) EMILY 07/06/2024 1:59 PM [facility] Comment: Susceptibility testing not routinely [...] MICROBIOLOGY - GENERAL ORDER PATTI Final Result Performing Organization Address City/[facility]/ZIP Co de Phone Number [facility] [address] [place] [address], [place] [phone] documented in this encounter Visit Diagnoses Diagnosis Altered mental status, unspecified 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
--- OUTSIDE RECORDS SUMMARY | 2024-09-25 08:04 | XMS_ITS | Encounter Summary ---
Author Organization [facility] Address [address] [place] [address] Care Team Providers Care Upset Welding Machine Operator Name Role Phone Louis Brownlee MD Primary Care Provider [phone] Encounter Details Date Type Department Care Team (Late st Contact Info) Description 07/16/2024 Lab Requisition [facility] - Main Lab [address] [place] [address] Louis Brownlee MD [address] [place] [address] [address] [place], [phone] Essential (primary) hypertension Social History Tobacco [...] Associated Diagnosis Comments COMPLETE BLOOD COUNT Routine 07/17/2024 7:35 AM EST Essential (primary) hypertension COMPREHENSIVE METABOLIC PANEL Routine 07/17/2024 7:35 AM EST Essential (primary) hypertension documented in this encounter Results * Comprehensive metabolic panel (07/17/2024 7:35 AM EST) Sodium 139 133 - 145 mmol/L LAB CHEMISTRY METHOD 07/17/2024 11:42 AM EST [facility] Potassium 4.3 3.5 - 5.5 mmol/L LAB CHEMISTRY METHOD 07/17/2024 11:42 AM EST [facility] Chloride 104 96 - 110 mmol/L LAB CHEMISTRY METHOD 07/17/2024 11:42 AM [facility] CO2 31 21 - 32 mmol/L LAB CHEMISTRY METHOD 07/17/2024 11:42 AM [facility] Anion Gap 4 3 - 11 LAB CHEMISTRY METHOD 07/17/2024 11:42 AM [facility] Glucose 82 70 - 100 mg/dL LAB CHEMISTRY METHOD 07/17/2024 11:42 AM [facility] BUN 20 5 - 25 mg/dL LAB CHEMISTRY METHOD 07/17/2024 11:42 AM [facility] Creatinine 0.82 0.50 - 1.10 mg/dL LAB CHEMISTRY METHOD 07/17/2024 11:42 AM [facility] eGFR 70 >=60 mL/min/1. 73m2 LAB CHEMISTRY METHOD 07/17/2024 11:42 AM [facility] Comment:Calculation based on the??Chronic Kidney Disease Epidemiology Collaboration (CKD-EPI) equation refit??without adjustment for race. BUN/Creatinine Ratio 24.4 LAB CHEMISTRY METHOD 07/17/2024 11:42 AM [facility] Calcium 8.9 8.5 - 10.5 mg/dL LAB CHEMISTRY METHOD 07/17/2024 11:42 AM [facility] AST (SGOT) 16 10 - 42 unit/L LAB CHEMISTRY METHOD 07/17/2024 11:42 AM [facility] ALT (SGPT) 11 10 - 60 unit/L LAB CHEMISTRY METHOD 07/17/2024 11:42 AM [facility] Alkaline Phosphatase 83 42 - 121 unit/L LAB CHEMISTRY METHOD 07/17/2024 11:42 AM [facility] Total Protein 6.5 6.0 - 8.0 g/dL LAB CHEMISTRY METHOD 07/17/2024 11:42 AM [facility] Albumin 3.3 3.2 - 5.0 g/dL LAB CHEMISTRY METHOD 07/17/2024 11:42 AM [facility] Total Bilirubin 0.3 0.0 - 1.4 mg/dL LAB CHEMISTRY METHOD 07/17/2024 11:42 AM [facility] Blood Venous blood specimen / Unknown Venipuncture / Unknown 07/17/2024 7:35 AM EST 07/17/2024 10:21 AM EST us Louis Brownlee MD LAB BLOOD ORDERABLES Final Resul t [facility] [address] [place] [address], * (ABNORMAL) Complete blood count (07/17/2024 7:35 AM EST) WBC 14.3(H) 4.8 - 10.8 K/mcL LAB HEMETOLOGY METHOD 07/17/2024 10:44 AM [facility] RBC 3.80 3.80 - 4.80 M/mcL LAB HEMETOLOGY METHOD 07/17/2024 10:44 AM [facility] Hemoglobin 11.1(L) 11.5 - 16.0 g/dL LAB HEMETOLOGY METHOD 07/17/2024 10:44 AM [facility] Hematocrit 36.2 35.0 - 47.0 % LAB HEMETOLOGY METHOD 07/17/2024 10:44 AM [facility] MCV 96.0 79.0 - 98.0 FL LAB HEMETOLOGY METHOD 07/17/2024 10:44 AM [facility] MCH 29.4 27.0 - 32.0 pcg LAB HEMETOLOGY METHOD 07/17/2024 10:44 AM [facility] MCHC 30.7(L) 32.0 - 37.0 g/dL LAB HEMETOLOGY METHOD 07/17/2024 10:44 AM [facility] RDW 12.2 11.0 - 15.0 % LAB HEMETOLOGY METHOD 07/17/2024 10:44 AM EST [facility] Platelets 419(H) 130 - 400 K/mcL LAB HEMETOLOGY METHOD 07/17/2024 10:44 AM EST [facility] MPV 10.2 7.0 - 11.0 FL LAB HEMETOLOGY METHOD 07/17/2024 10:44 AM EST [facility] NRBC 0.0 <1.0 % LAB HEMETOLOGY METHOD 07/17/2024 10:44 AM EST [facility] NRBC Absolute 0.00 <0.10 K/mcL LAB HEMETOLOGY METHOD 07/17/2024 10:44 AM [facility] Blood Venous blood specimen / Unknown Venipuncture / Unknown 07/17/2024 7:35 AM EST 07/17/2024 10:09 AM EST us Louis Brownlee MD LAB BLOOD ORDERABLES Final Resul t [facility] [address] [place] [address], documented in this encounter Visit Diagnoses Diagnosis Essential (primary) hypertension Unspecified essential hypertension documented in this encounter Care Teams Upset Welding Machine Operator Relationship Specialty Start Date End Date Louis Brownlee MD [address] [place] [phone] PCP - General Family Medicine 07/04/24 documented as of this encounter
--- OUTSIDE RECORDS SUMMARY | 2024-09-25 08:05 | XMS_ITS ---
Author Organization [facility] on Address Unknown Allergies, Adverse Reactions, Alerts Substance Reaction Status Noted Date Resolved Date Sulfa Antibiotics active 09/07/2020 Problems Problem Status Start Date End Date ENCOUNTER FOR OTHER ORTHOPED IC AFTERCARE (Primary) (Z47.89 - ICD-10-CM) ACTIVE 09/07/2020 OTHER FRACTURE OF SHAFT OF R IGHT HUMERUS, SUBSEQUENT ENCOUNTER FOR FRACTURE WITH ROUTINE HEALING (S42.391D - ICD-10-CM) ACTIVE 09/07/2020 ORTHOSTATIC HYPOTENSION (I95.1 - ICD-10-CM) ACTIVE 09/07/2020 INSOMNIA, UNSPECIFIED (G47.00 - ICD-10-CM) ACTIVE 09/07/2020 ESSENTIAL (PRIMARY) HYPERTENSION (I10 - ICD-10-CM) ACT KARLY 09/07/2020 Encounters Encounter Performer Performer Role Encounter Diagnoses Location Date Discharge - Discharged to home or self care - [facility] - Private home/apt. with home health services [facility] 09/07/2020 05:25 pm EST - 09/25/2020 11:43 am EST Immunizations Vaccine Date TB 2 Step [place]oux Skin Test 09/15/2020 0 8:24 am EST TB 2 Step [place] Skin Test 09/08/2020 0 6:00 pm EST Social History
--- OUTSIDE RECORDS SUMMARY | 2024-09-25 08:05 | XMS_ITS | Continuity of Care Document ---
Author Organization [facility], [facility] Address [address] [place] [address] Care Team Providers Care Consolidation Accountant Name Role Phone JAMAAL FLORES Primary Care Provider [facility] - 3RD FLOOR OTHER Assessment No assessment recorded. Plan of Treatment Reminders Order Date Submit Date Provider Last Modified By Organization Details Last Modified Time Details Appointments None record ed. Lab None record ed. Referral None record ed. Procedures None record ed. Surgeries None record ed. Imaging None record ed. Medication Orders None record ed. Patient TargetsNo targets recorded. Patient InstructionsNo instructions recorded. Reason for Referral None Reported. Problems Name Problem SNOMED Code Status Onset Date Resolution Date Notes Provider Name and Address Organization Details Recorded Time Orthostatic hypotension 16785577 Active 2020 Modesta bartlett [facility] 13:44:57 Fracture of humerus 48019436 Active 2020 Modesta bartlett [facility] 13:45:01 Insomnia 521919235 Active 2020 Modesta bartlett [facility] 13:46:18 Constipation 28285321 Active 2020 Modesta bartlett [facility] 13:46:26 Essential hypertension 19507733 Active 2020 Modseta bartlett [facility] 13:46:27 Coronary arteriosclero sis 87946922 Active 2020 Adelina Galarza MD [address] [facility], [address], [place], [address] , [facility] 19:45:42 Dementia 20550885 Active 2022 PAT REARDON NP [address], [address], [place], [address], [facility] 3 12:53:33 Hyperlipidemi a 13640103 Active 2022 PAT REARDON NP [address], [address], [place], [address], [facility] 3 12:53:44 Depressive disorder 59431620 Active 2022 PAT REARDON NP [address], [address], [place], [address], [facility] 3 12:53:57 Osteoarthriti s 241557259 Active 2022 cheryle. right knee PAT REARDON NP [address] [facility], [address], [place], [address], [facility] 3 12:54:14 Hearing loss 19731835 Active 2022 PAT REARDON NP [address] [facility], [address], [place], [address], [facility] 3 12:54:24 History of migraine 025653027 Active 2022 PAT REARDON NP [address] [facility], [address], [place], [address], [facility] 3 12:57:42 Seasonal allergic rhinitis 406286902 Active 2022 PAT REARDON NP [address] [facility], [address], [place], [address], [facility] 3 12:57:51 Anemia 828758162 Active 2022 PAT REARDON NP [address], [address], [place], [address], [facility] 3 15:35:43 Falls 229949890 Active 2022 Edie Serna NP [address], [address], [place], [address], [facility] 3 15:07:17 Abrasion 969510271 Active 2022 Edie Serna NP [address] [facility], [address], [place], [address], [facility] 3 15:07:26 Pain in left arm 923402730 Active 2022 Edie Serna NP [address] [facility], [address], [place], [address], [facility] 3 15:08:01 Generalized headache 633130554 Active 2022 PAT REARDON NP [address] [facility], [address], [place], [address], [facility] 3 11:52:55 Acute COVID-19 8908529270 Active 2023 Adelina Galarza MD [address] [facility], [address], [place], [address], [facility] 4 18:51:00 Adult failure to thrive syndrome 670569396 Active 2023 Adelina Galarza MD [address] [facility], [address], [place], [address], [facility] 4 18:51:38 Problem Notes None recorded. Medical Equipment None Reported. Allergies Allergen ID Allergen Name Allergen Category Reaction Reaction Severity Criticality Documentation Date Start Date Code Code System Note Provider Name and Address Organization Details Recorded Time aspirin medicatio n Not available Not available Not available 09/08/2020 1191 RxNorm Not Available Not Available Not Available Substance with sulfonami de structure and antibacte rial mechanism of action (substanc e) medicatio n Not available Not available Not available 09/08/2020 99217 8003 SNOMED Not Available Not Available Not Available Vitals Date Recorded Body height Body mass index (BMI) Body weight Heart rate Respiratory rate Body temperature Oxygen saturation Oxygen saturation in Arterial blood by Pulse oximetry Systolic blood pressure Diastolic blood pressure Provider Name and Address Organization Details Last Updated DateTime 5 162.56 cm 19.1 kg/m2 04076.7 5 g 78 /min 18 /min 98 [degF] 94 % 94 % 122 mm[Hg] 68 mm[Hg] Edie Serna NP [address] [facility], [address], [place], [address], [facility] 5 10:51:47 Social History Question Answer Notes LastModified by Organizat ion Details LastModified Time Tobacco Smoking Status Former Smoker Has quit on and off since 1996, quit for good 2019. Smoked a ppd since age 13 PAT REARDON NP [address] [facility], [address], [place], [address], [facility] 12/08/2022 12:55:26 Do You Have An Advance Directive? Yes Information not available 12/08/2022 What Is Your Level Of Alcohol Consumption? None [email or web address] Information not available 09/08/2020 What Is Your Code Status? DNR/DNI DNH, No G Tube, No Dialysis [email or web address] Information not available 12/08/2022 Do You Or Have You Ever Used E-cigarettes Or Vape? Never Used Electronic Cigarettes Information not available 09/11/2020 [facility] Information not available 09/11/2023 Legal Guardian? No Informati on not available 09/11/2023 Do You Have A Medical Power Of Human Services Professional? Yes Has HCP, Invoke Upon Admission [email or web address] Information not available 12/08/2022 What Was The Date Of Your Most Recent Tobacco Screening? 12/08/2022 [email or web address] Information not available 12/08/2022 Do You Have An Out Of Hospital DNR? Yes Information not available 09/11/2023 What Is Your Relationship Status? Information not available 09/11/2023 Do You Or Have You Ever Used Smokeless Tobacco? Never Used Smokeless Tobacco Information not available 09/11/2020 Do You Use Any Illicit Or Recreational Drugs? No [email or web address] Information not available 12/08/2022 Has Tobacco Cessation Counseling Been Provided? No [email or web address] Information not available 12/08/2022 How Many Years Have You Smoked Tobacco? 60 Information not available 09/11/2020 Do You Or Have You Ever Used Any Other Forms Of Tobacco Or Nicotine? No Information not available 09/11/2023 Sex: Unknown Functional Status None recorded. Mental Status None recorded. Family History Nothing Reported Notes:pt. cannot recall Medical History No medical history recorded. Gynecological HistoryNo gynecological history recorded. Obstetrics History GPAL:G 0 P 0 0 0 0 Immunizations Vaccine Type Date Status Note Provider Nam e and Address Organization Details Recorded Time Influenza, adjuvanted, quadrivalent, PF [facility] 12:02:22 Influenza, adjuvanted, quadrivalent, PF 2 completed Julia bartlett, [facility] 09/18/2023 12:41:22 pneumococcal polysaccharide PPV23 3 [facility] 12:41:56 COVID-19, mRNA, LNP-S, bivalent, PF, 30 mcg/0.3 mL dose 3 [facility]2023 13:00:38 Influenza, adjuvanted, trivalent, PF 0 completed Betty Horowitz [facility], [facility] 10/09/2020 10:36:00 Pneumococcal conjugate PCV 13 5 [facility] 10:36:13 pneumococcal polysaccharide PPV23 8 completed [facility] 10/09/2020 10:36:23 [facility]ap 0 [facility] 10:36:35 zoster recombinant 0 [facility] 10:36:43 Past Encounters Encounter ID Performer Location Encounter Start Date Encounter Closed Date Diagnosis/Indication Diagnosis SNOMED-CT Code Diagnosis ICD10 Code Diagnosis Note [id number] Edie Serna NP [address] [address] 08/29/2024 08:07:46 08/30/2024 11:08:23 Urinary tract infectious disease 67306268 N39.0 exit seeking remains with slightly decreased agitationo n 07/05 started on augmentin 875/125mg po bid x 10days with probiotico n 07/11 clinically improving on abx, no s/swbc resolvingm onitor for changesnot e: she often refuses labs Dementia 49697055 F02.B0 With sl. declinecon ttrazodone 25 mg po bid and q 12 hours prn agitationd uloxetine 20 mg qdContinue supportive care, expect continued decline.HC P invokedMon itor mood and behaviors. Psych consult prn. 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 Hearing loss 81370231 H9 0.0 Hearing aids were lost.08/29 audiology referral for severe hearing lossneed to speak loudly into right ear or write things down to communicat e Excessive cerumen in ear canal 059274293 H61.23 pt with large amount of cerumen to bilateral earsdebrox 4 gtts tid to both ears, flush day 6monitor Health Concerns Section Related Observation LastModified by Organization Detai ls LastModified Time None Recorded Concern Status LastModified by Organization Details LastModified Time None Recorded Payers Encounter Date Sequence Insurance Name Policy Number Policy Rubio Covered Member ID Rubio Member ID Guarantor Name 08/29/2024 1 MEDICARE B-[place]: [facility] [employer] Teena Gonzalez [id number] Teena Gonzalez Notes Date Note Type Note Provider Name and Address Organization Details Recorded Time 08/29/2024 text/html This is an 84 yo woman, [facility] resident, seen for a routine rounding visit today and audiology screening. Her PMH includes HTN, CAD, OA, s/p Covid 08/2022, hx of migraines, and seasonal allergies.Teena has been here since 11/2022 due to worsening dementia, wandering and care needs unable to be met in the community. She was treated with augmentin on 07/05 -07/15 for UTI and now seems improved and back to baseline. Overall, nursing states Teena is at baseline with exit seeking behaviors. She is seen with justin flanagan, and states she going out to [employer] today and is attempting to get on the elevator. She is calm and confused. She has decreased hearing and does not have hearing aides as they were lost. This BOOKING AGENT needs to write on a paper for her to hear that her ears have wax. Edie Serna, TREVON [address] [facility], [address], [place], [address], [facility] 08/29/2024 11:20:06 OBGyn Episode No OBEpisode recorded.
--- OUTSIDE RECORDS SUMMARY | 2024-09-25 08:05 | XMS_ITS | Data Portability ---
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 Name Role Phone JAMAAL FLORES Primary Care Provider [facility] - 3RD FLOOR OTHER Assessment No assessment [...] Address Organization Details Recorded Time Orthostatic hypotension 82665727 Active 2020 Modesta bartlett, [facility] 13:44:57 Fracture of humerus 58455190 Active 2020 Modesta bartlett [facility] 13:45:01 Insomnia 975113092 Active 2020 Modesta bartlett [facility] 13:46:18 Constipation 15943635 Active 2020 Modesta bartlett [facility] 13:46:26 Essential hypertension 73835869 Active 2020 Modesta bartlett [facility] 13:46:27 Coronary arteriosclero sis 56426437 Active 2020 Adelina Galarza MD [address] [facility] [facility], [address], [place], [address] , [facility] [employer] 19:45:42 Dementia 65257350 Active 2022 PAT REARDON NP [address], [address], [place], [address], [facility] [employer] [facility] 3 12:53:33 Hyperlipidemi a 40905984 Active 2022 PAT REARDON NP [address], [address], [place], [address], [facility] [employer] [facility] 3 12:53:44 Depressive disorder 39575921 Active 2022 PAT REARDON NP [address], [address], [place], [address], [facility] [employer] [facility] [facility] 3 12:53:57 Osteoarthriti s 991037957 Active 2022 cheryle. right knee PAT REARDON NP [address], [address], [place], [address], [facility] [employer] 3 12:54:14 Hearing loss 37569236 Active 2022 PAT REARDON NP [address] [facility], [address], [place], [address], [facility] 3 12:54:24 History of migraine 409180250 Active 2022 PAT REARDON NP [address] [facility], [address], [place], [address], [facility] [facility] 3 12:57:42 Seasonal allergic rhinitis 563779246 Active 2022 PAT REARDON NP [address] [facility], [address], [place], [address], [facility] [employer] [facility] [facility] 3 12:57:51 Anemia 729820076 Active 2022 PAT REARDON NP [address], [address], [place], [address], [facility] [facility] 3 15:35:43 Falls 412412809 Active 2022 Edie Serna NP [address], [place], [address], [facility] 3 15:07:17 Abrasion 383220889 Active 2022 Edie Serna NP [address], [address], [place], [address], [facility] 3 15:07:26 Pain in left arm 464834858 Active 2022 Edie Serna NP [address], [address], [place], [address], [facility] 3 15:08:01 Generalized headache 347099701 Active 2022 PAT REARDON NP [address], [address], [place], [address], [facility] 3 11:52:55 Acute COVID-19 4623760801 Active 2023 Adelina Galarza MD [address], [address], [place], [address], [facility] 4 18:51:00 Adult failure to thrive syndrome 496065666 Active 2023 Adelina Galarza MD [address], [address], [place], [address], [facility] 4 18:51:38 Problem Notes None recorded. [...] Not available Not available Not available 09/08/2020 [id number] SNOMED Not Available Not Available Not Available Vitals Date Recorded Body height Body mass index (BMI) Body weight Heart rate Respiratory rate Body temperature Oxygen saturation Oxygen saturation in Arterial blood by Pulse oximetry Systolic blood pressure Diastolic blood pressure Provider Name and Address Organization Details Last Updated DateTime 4 162.56 cm 16.8 kg/m2 30203.6 2 g 78 /min 20 /min 97.6 [degF] 97 % 97 % 114 mm[Hg] 63 mm[Hg] Edie Serna NP [address] [facility], [address], [place], [address], [facility] 4 13:18:21 Date Recorded Body height Body weight Body mass index (BMI) Heart rate Respiratory rate Body temperature Oxygen saturation Oxygen saturation in Arterial blood by Pulse oximetry Systolic blood pressure Diastolic blood pressure Provider Name and Address Organization Details Last Updated DateTime 4 162.56 cm 03376.5 7 g 18.7 kg/m2 68 /min 18 /min 98.2 [degF] 94 % 94 % 123 mm[Hg] 66 mm[Hg] Edie Serna NP [address] [facility] [address], [place], [address], [facility] 4 15:54:40 Date Recorded Body height Body mass index (BMI) Body weight Heart rate Respiratory rate Body temperature Oxygen saturation Oxygen saturation in Arterial blood by Pulse oximetry Systolic blood pressure Diastolic blood pressure Provider Name and Address Organization Details Last Updated DateTime 5 162.56 cm 19.1 kg/m2 59889.7 5 g 78 /min 18 /min 98 [degF] 94 % 94 % 122 mm[Hg] 68 mm[Hg] Edie Serna NP [address] [facility] [address], [place], [address], [facility] 5 10:51:47 Date Recorded Body height Heart rate Respiratory rate Body temperature Oxygen saturation Oxygen saturation in Arterial blood by Pulse oximetry Systolic blood pressure Diastolic blood pressure Provider Name and Address Organization Details Last Updated DateTime 5 162.56 cm 72 /min 16 /min 98 [degF] 93 % 93 % 122 mm[Hg] 68 mm[Hg] PAT REARDON NP [address] [facility] [address], [place], [address], [facility] 5 13:04:01 Social History Question Answer Notes LastModified by Organizat ion Details LastModified Time Tobacco Smoking Status Former Smoker Has quit on and off since 1996, quit for good 2019. Smoked a ppd since age 13 PAT REARDON NP [address] [facility], [facility] [address], [place], [address], [facility] 12/08/2022 12:55:26 Do You Have An Advance Directive? Yes [email or web address] Information not available 12/08/2022 What Is Your Level Of Alcohol Consumption? None [email or web address] Information not available 09/08/2020 What Is Your Code Status? DNR/DNI DNH, No G Tube, No Dialysis [email or web address] Information not available 12/08/2022 Do You Or Have You Ever Used E-cigarettes Or Vape? Never Used Electronic Cigarettes Information not available 09/11/2020 Where Do You Live? [facility], [place], [facility] Information not available 09/11/2023 Legal Guardian? No Informati on not available 09/11/2023 Do You Have A Medical Power Of Manager Psychology? Yes Has HCP, Invoke Upon Admission [email or web address] Information not available 12/08/2022 What Was The Date Of Your Most Recent Tobacco Screening? 12/08/2022 [email or web address] Information not available 12/08/2022 Do You Have An Out Of Hospital DNR? Yes Information not available 09/11/2023 What Is Your Relationship Status? Information not available 09/11/2023 Do You Or Have You Ever Used Smokeless Tobacco? Never Used Smokeless Tobacco Information not available 09/11/2020 Do You Use Any Illicit Or Recreational Drugs? No [email or web address] Information not available 12/08/2022 Has Tobacco Cessation Counseling Been Provided? No [email or web address] Information not available 12/08/2022 How Many Years [...] Influenza, adjuvanted, quadrivalent, PF 3 completed Julia bartlett, [facility] 09/18/2023 12:02:22 Influenza, adjuvanted, quadrivalent, PF 2 completed Julia bartlett [facility] 09/18/2023 12:41:22 pneumococcal polysaccharide PPV23 3 completed Julia Brandon null, [facility] 09/18/2023 12:41:56 COVID-19, mRNA, LNP-S, bivalent, PF, 30 mcg/0.3 mL dose 3 completed Julia Brandon null, [facility] 09/18/2023 13:00:38 Influenza, adjuvanted, trivalent, PF 0 completed Betty Horowitz [facility], [facility] 10/09/2020 10:36:00 Pneumococcal conjugate PCV 13 5 completed Betty Horowitz [facility] 10/09/2020 10:36:13 pneumococcal polysaccharide PPV23 8 completed Betty Horowitz [facility] 10/09/2020 10:36:23 Tdap 0 completed Betty Horowitz [facility], [facility] 10/09/2020 10:36:35 zoster recombinant 0 completed Betty Horowitz [facility] 10/09/2020 10:36:43 Past Encounters Encounter ID Performer Location Encounter Start Date Encounter Closed Date Diagnosis/Indication Diagnosis SNOMED-CT Code Diagnosis ICD10 Code Diagnosis Note [id number] Modesta Diamilton at [facility] on [address] [place] [address] 09/08/2020 12:52:27 09/09/2020 14:55:34 Fracture of humerus 55913250 S42.391A s/p ORIF 2/5Oxycodo ne PRN pain-incre ase to 15 mg Q4h PRN due to severe painSchedu le tylenol 1000 mg TIDASA 81 mg daily for DVT prophylaxi sPT OT eval and treatMonit or Orthostati c hypotension 84335978 I95.1 Monitor bpNow back on lisinopril Constipation 02138607 K5 9.09 Miralax 17 g daily PRNSenna 2 tabs QHSMonitor Essential hypertension 08548953 I10 Lisinopril 10 mg dailyMonit or bp Insomnia 744319607 G47.0 9 Trazodone 25 mg QHSMonitor [id number] MD Vance Carrasco at [facility] on [address] [place] [address] 09/11/2020 18:28:11 09/14/2020 11:28:40 Fracture of humerus 45841508 S42.391A s/p ORIF 2/5Continu e oxycodone 15 mg Q4h PRN due to severe pain and APAP 1000 mg TID scheduled. Continue ASA 81 mg qd for DVT prophylaxi sContinue P/OT as needed per ortho.Has f/u with ortho on 09/18.Monit or CSM of hand and pain. Orthostati c hypotension 75444994 I95.1 BP had been high since here, but low this afternoon. No sxs of orthostasi s.Monitor BP. Constipation 09482104 K5 9.09 Continue Senna 2 tabs qhs and Miralax 17 gms qd prnMonitor bowel function Essential hypertension 11412987 I10 BP low today, but had been high, perhaps pain is in better control. Continue lisinopril 10 mg qd,Monitor BP and labs. Insomnia 202726847 G47.0 9 Continue trazodone 25 mg qhs prn.Monito r sleep patterns. Coronary arteriosclerosis 54880992 I25.10 Hx of s/p NSTEMI with BMS to mRCA in 2018. No current sxs. Continue ASA as above. Not on BB, not sure why. F/U with cardio as planned. [id number] Modesta [place] at [facility] on [address] [place] [address] 09/14/2020 09:40:19 09/15/2020 15:12:51 Fracture of humerus 74073724 S42.391A s/p ORIF 2/5Will increase oxycodone 15 mg Q3h PRN to improve pain control Schedule tylenol 1000 mg TID ASA 81 mg daily for DVT prophylaxi scont PT OTMonitor Constipation 99787025 K5 9.09 Miralax 17 g daily PRNSenna 2 tabs QHSMonitor Essential hypertension 67895961 I10 BP slightly high today-will monitor after pain better controlled Lisinopril 10 mg dailyMonit or bp [id number] Modesta Woodard [facility] on [address] [place] [address], [place] [address] 09/16/2020 08:49:20 09/18/2020 10:01:14 Fracture of humerus 34154948 S42.391A s/p ORIF 2/5Healing as expected per orthoRemai ns NWB to right upper extremityO xycodone 15 mg Q3h PRN-will taper this dose as pain improves Tylenol 1000 mg TID ASA 81 mg BID x 4 weeks for DVT prophylaxi scont PT OTMonitor Constipation 17466560 K5 9.09 Miralax 17 g daily PRNSenna 2 tabs QHSMonitor Essential hypertension 18248033 I10 Lisinopril 10 mg daily Monitor bp [id number] Modesta Woodard [facility] on [address] [place] [address] 09/18/2020 10:08:59 09/21/2020 14:26:02 Fracture of humerus 34825193 S42.391A s/p ORIF 2/5Healing as expected per orthoRemai ns NWB to right upper extremityC ontinues to c/o severe pain despite oxycodoneW ill d/c oxycodoneS tart dilaudid 4 mg Q3h PRNASA 81 mg BID x 4 weeks for DVT prophylaxi scont PT OTMonitor [id number] Modesta Woodard [facility] on [address] [place] [address], [place] [address] 09/25/2020 07:48:23 09/28/2020 15:07:06 Fracture of humerus 74062363 S42.391A s/p ORIF 2/5Healing as expected per orthoRemai ns NWB to right upper extremityD ilaudid 4 mg Q3h PRN for pain ASA 81 mg BID until 10/14VNA services in place for discharge Constipation 73941954 K5 9.09 Miralax 17 g daily PRNSenna 2 tabs QHSMoving bowels regularly Essential hypertension 48694391 I10 Lisinopril 10 mg dailyBP well controlled Insomnia 601092935 G47.0 9 Trazodone 25 mg QHS [id number] PAT REARDON NP [address] [address] 12/08/2022 12:00:47 12/12/2022 12:38:13 Coronary arteriosclerosis 64502037 I25.10 Not on meds other than lisinopril 10 mg dailyMonit or CP status Essential hypertension 75951313 I10 On lisinopril 10 mg dailyMonit or VS, labs, adjust prnCBC, CMP x 1 in am Dementia 45977978 F03.90 Also with depression Unable to care for self at home, here for LTCOnly med at present is Cymbalta 20 mg dailyScore d 17 on SLUMS, c/w dementiaIn voke HCPMonitor mood, behaviorsP sych referral prn Osteoarthritis 174541178 M19.90 Continue prn APAP, Ca with D, glucosamin e 1000 mg bidMonitor pain, mobilityPT OT eval prnAdjust tx. as needed. [id number] Lesia Machado MD [facility] [address] [address] 12/09/2022 07:54:41 12/12/2022 14:52:47 Dementia 74940921 F02.B0 will monitor and support as she adjusts to facilityse e meds for mixed anxiety disorder Mixed anxi ety and depressive disorder 136191519 F41.8 duloxetine 20 mg dailywill monitor Essential hypertension 28263797 I10 lisinopril 10 m dailywill monitor Osteoarthritis 182284744 M15.0 APAP 650 mg q4h prnwill monitor [id number] PAT REARDON NP [facility] [address] [address] 12/12/2022 10:31:48 12/18/2022 08:23:24 Dementia 57964003 F02.B0 monitor for behavior changes, not on meds at this time.provi de support as she adjusts to facilityex pect decline Mixed anxi ety and depressive disorder 598449784 F41.8 continue duloxetine 20 mg dailymonit or for behavior and mood changespsy ch as needed Essential hypertension 32540287 I10 lisinopril 10 m dailymonit or VSmonitor for clinical status changes Osteoarthritis 559189080 M15.0 APAP 650 mg q4h prnmonitor for clinical status changesPT/ OT as needed Anemia 168917621 D64.9 Hgb 8.1, microcytic No labs for comparison Plan -CBC, Iron studies 12/15Heme test stools x 3Not on AC or ASAMonitor [id number] Louis Brownlee MD [facility] [address] [address] 12/14/2022 08:02:52 12/18/2022 08:32:57 Essential hypertension 99086609 I10 borderline elevatedmo nitor need to titrate medication Dementia 36639642 F03.90 appears to be adjusting well to facilityco ntinue supportive caremonito r for behaviors Hearing loss 97792337 H9 0.0 currently need to shout - no hearing aid in placeaudio logy exam if HCP allows [id number] OLIVERIO YaoP [facility] [address] 12/20/2022 10:52:43 12/29/2022 14:35:56 Dementia 18975196 F03.90 adjusting well to facilitysu pportive careexpect declinemon itor moodpsych prn Essential hypertension 81679742 I10 bp normallisi nopril 10 mg qdmonitor bp and adjust dose prn Hearing loss 93824220 H9 0.0 no hearing aid in placeaudio logy exam if HCP allows Depressive disorder 3548 9007 F32.A stablecymb matthew 20 mg qdmonitor moodpsych prn [id number] PAT REARDON NP [facility] [address] 12/21/2022 08:16:28 12/29/2022 15:41:13 Dementia 67431107 F02.B0 On duloxetine 20 mg daily for depr./anx. Monitor mood, behaviorsT ransitioni ng well to LTC at this time.HCP invokedExp ect continued decline Mixed anxi ety and depressive disorder 826373368 F41.8 continue duloxetine 20 mg dailymonit or for behavior and mood changespsy ch eval prn Essential hypertension 80898280 I10 continue lisinopril 10 m dailymonit or VS q monthcheck BMP prnadjust meds prn Osteoarthritis 808978131 M15.0 Continue glucosamin e 1000 mg bid, Ca with D hardy, APAP 650 mg q4h prnmonitor pain, mobility/a ctivity - adjust tx. as neededPT/O T eval and tx. prn Anemia 379164533 D64.9 Hgb 8.1, microcytic No labs for comparison Plan -CBC, Iron studies 12/15 not done - will reorderHem e test stools x 3 - will reorderMon itor for sx., s/s active bleed Coronary arteriosclerosis 93560313 I25.10 Not on meds other than lisinopril 10 mg dailyMonit or CP status Hyperlipidemia 55990795 E78.5 Not on meds at this time Orthostati c hypotension 25862244 I95.1 Unclear hx.Not on meds at this time, but is on lisinopril 10 mg dailyMonit or VS., sx. [id number] PAT REARDON NP [address] [address] 12/22/2022 09:45:50 12/30/2022 10:16:20 Anemia 212821805 D64.9 Hgb 8.1, 9.1 - microcytic No outpt. labs for comparison Todays labs showing low Fe levelPlan -Start FeSO4 325 mg daily, Vit C 500 mg dailyHeme test stools x 3 - reorderedM onitor for sx., s/s active bleedCBC q month x 3, start 01/23 Dementia 59278829 F02.B0 Continue duloxetine 20 mg daily for depr./anx. Monitor mood, behaviorsT ransitioni ng well to LTC at this time.HCP invokedExp ect continued decline Mixed anxi ety and depressive disorder 803731066 F41.8 continue duloxetine 20 mg dailymonit or for behavior and mood changespsy ch eval prn Essential hypertension 23266127 I10 continue lisinopril 10 m dailymonit or VS q monthcheck BMP prnadjust meds prn Osteoarthritis 948791564 M15.0 Continue glucosamin e 1000 mg bid, Ca with D hardy, APAP 650 mg q4h prnmonitor pain, mobility/a ctivity - adjust tx. as neededPT/O T eval and tx. prn Coronary arteriosclerosis 48710544 I25.10 Not on meds other than lisinopril 10 mg daily, continueMo nitor CP status Hyperlipidemia 36588556 E78.5 Not on meds at this time Orthostati c hypotension 54307815 I95.1 Unclear hx.Not on meds at this time, but is on lisinopril 10 mg dailyMonit or VS., sx. [id number] PAT REARDON NP [facility] [address] [address] 01/02/2023 14:15:59 01/04/2023 14:57:39 Anemia 872093449 D64.9 microcytic Now on Fe SO4 325 mg and Vit C 500 mg dailyhgb today improving - 9.8Monitor for sx., s/s active bleedCBC q month x 3, start 01/23 Dementia 32517519 F02.B0 Continue duloxetine 20 mg daily for depr./anx. Monitor mood, behaviorsT ransitioni ng well to LTC at this time.HCP invokedExp ect continued decline Mixed anxi ety and depressive disorder 279997458 F41.8 continue duloxetine 20 mg dailymonit or for behavior and mood changespsy ch eval prn Essential hypertension 42802503 I10 continue lisinopril 10 m dailymonit or VS q monthcheck BMP prnadjust meds prn Osteoarthritis 848830326 M15.0 Continue glucosamin e 1000 mg bid, Ca with D hardy, APAP 650 mg q4h prnmonitor pain, mobility/a ctivity - adjust tx. as neededPT/O T eval and tx. prn Coronary arteriosclerosis 75080632 I25.10 Not on meds other than lisinopril 10 mg daily, continueMo nitor CP status Hyperlipidemia 67008401 E78.5 Not on meds at this time Orthostati c hypotension 54273323 I95.1 Unclear hx.Not on meds at this time, but is on lisinopril 10 mg dailyMonit or VS., sx. PAT REARDON NP [facility] [address] [address] 01/09/2023 15:15:55 01/12/2023 16:02:38 Anemia 015940914 D64.9 microcytic Now on Fe SO4 325 mg and Vit C 500 mg dailyhgb today improving - 9.8Monitor for sx., s/s active bleedCBC q month x 3, start 01/23 Dementia 87522766 F02.B0 Didn't sleep last night, increased issues with wandering and exit seeking.Cu rrently on duloxetine 20 mg daily for depr./anx. , no prns availableW ill add trazodone 12.5 mg bid prn x 14 days if wandering/ agitation not redirectab le. Monitor use and effect.If sleep problemati c, can add melatonin. Consider referral to psych if behaviors remains problemati c.HCP invokedExp ect continued decline Mixed anxi ety and depressive disorder 593409835 F41.8 continue duloxetine 20 mg dailymonit or for behavior and mood changespsy ch eval prn Essential hypertension 24537040 I10 continue lisinopril 10 m dailymonit or VS q monthcheck BMP prnadjust meds prn Osteoarthritis 026346431 M15.0 Continue glucosamin e 1000 mg bid, Ca with D hardy, APAP 650 mg q4h prnmonitor pain, mobility/a ctivity - adjust tx. as neededPT/O T eval and tx. prn Coronary arteriosclerosis 30489909 I25.10 Not on meds other than lisinopril 10 mg daily, continueMo nitor CP status Hyperlipidemia 57053595 E78.5 Not on meds at this time Orthostati c hypotension 81931544 I95.1 Unclear hx.Not on meds at this time, but is on lisinopril 10 mg dailyMonit or VS., sx. [id number] HILDA JENNINGS [address] [address] 01/13/2023 12:03:20 01/17/2023 09:42:38 Leukocytosis 899011952 D72.829 no focal symptomsre peat CBC with diff mondayif patient becomes symptomati c initiate septic workup, urine/lung s [id number] Lesia Machado MD [facility] [address] 01/27/2023 06:49:36 02/09/2023 14:37:52 Dementia 72663907 F02.B0 will monitor and support as neededsee meds for mixed anxiety disorderex pect decline Mixed anxi ety and depressive disorder 125393401 F41.8 duloxetine 20 mg dailywill monitor Essential hypertension 67684802 I10 lisinopril 10 m dailywill monitor Anemia 523911642 D50.8 FeSO4 325 mg dailyvita C 500 mg dailywill monitor Osteoarthritis 354792463 M15.0 APAP 650 mg q4h prnwill start APAP 650 mg tidwill monitor [id number] Edie Serna NP [facility] [address] [address] 01/27/2023 14:58:37 01/31/2023 03:52:19 Hearing loss 14597091 H90.0 no hearing aid in placeaudio logy exam if HCP allows Pain in left arm 5514982 00 M79.602 left arm ecchymotic area with tenderness and no deformity or decrease in movement sp fall with hx of hardware in this armxray of left lower arm 2 viewscold compress and elevation as toltylenol for pain(alrea dy on sched tylenol) Falls 629890866 R29.6 sp fall after tripping over a roommates cordmonito r for fallsno change in consciouss afety precaution s [id number] Edie Serna NP [facility] [address] [address] 02/01/2023 11:52:37 02/09/2023 16:21:00 Pain in left arm 933775391 M79.602 left arm ecchymotic area with tenderness and no deformity or decrease in movement sp fall with hx of hardware in this arm per documents but not noted in xrayxray of left lower arm 2 views shows no acute fracture completed on ontcol d compress and elevation as toltylenol for pain(alrea dy on sched tylenol) [id number] Edie Serna NP [facility] [address] [address] 02/24/2023 08:55:52 02/28/2023 14:42:57 Pain in left arm 898964515 M79.602 resolvedle ft arm ecchymotic area with tenderness and no deformity or decrease in movement sp fall with hx of hardware in this arm per documents but not noted in xrayxray of left lower arm 2 views shows no acute fracture completed on 01/28tylenol for pain Hearing loss 53255125 H9 0.0 no hearing aid in placeaudio logy exam if HCP allows Falls 938701051 R29.6 sp fall after tripping over a roommates cordmonito r for fallsno change in consciouss afety precaution s Dementia 56708954 F02.B0 will monitor and support as neededhx of wandering and exit seekingsee meds for mixed anxiety disorderex pect decline Mixed anxi ety and depressive disorder 056409342 F41.8 duloxetine 20 mg dailywill monitor Essential hypertension 71798759 I10 lisinopril 10 m dailywill monitor Anemia 518945188 D50.8 FeSO4 325 mg dailyvita C 500 mg dailywill monitor Osteoarthritis 979981049 M15.0 APAP 650 mg q4h prnglucosa mine 1000 mg bidwill start APAP 650 mg tidwill monitor [id number] [facility] [address] 05/08/2023 17:50:28 05/12/2023 12:09:43 Pruritic rash 88762494 L28.2 Likely started as dry skin, but with pt picking have become distinct lesions.Wi ll start triamcinol one cream 0.1 % BID x 2 wks and diphenhydr amine 25 mg qhs prn.Monito r [id number] PAT REARDON NP [facility] [address] [address] 05/16/2023 14:36:40 05/17/2023 08:27:50 Pain in toe 747699603 M79.675 right second toe, dorsal aspect, related most likely to pressure from shoe.mild irritation at this time, agree with daily bandaid for protection during the day, may remove HS. Enc. use of soft shoes with generous toe box to reduce pressure on toes.Monit or. [id number] Lesia Machado MD [facility] [address] [address] 05/19/2023 07:06:46 05/24/2023 08:26:28 Dementia 24091781 F02.B0 will monitor and support as neededsee meds for mixed anxiety disorderex pect decline Mixed anxi ety and depressive disorder 916439152 F41.8 duloxetine 20 mg dailywill monitor Essential hypertension 69963232 I10 lisinopril 10 m dailywill monitor Osteoarthritis 591751114 M15.0 APAP 650 mg q4h prnAPAP 650 mg tidwill monitor Anemia 970979007 D50.8 FeSO4 325 mg dailywill monitor [id number] PAT REARDON NP [facility] [address] [address] 06/13/2023 11:43:26 06/14/2023 15:46:36 Generalized headache 111828969 R51.9 Unclear etiologyDa power, for quite a while now, monthsAPAP not managing pain.Due to age and multiple comorbid conditions expected to worsen, would not recommend aggressive work up at this time.Can start with labs - CBC, CMP TSH, A1C, ESR - treat as indicatedC an also consider cervical x ray if labs ok.Adding daily riboflavin 400 mg daily for nowMonitor [id number] PAT REARDON NP [facility] [address] [address] 06/15/2023 11:13:41 06/20/2023 07:46:45 Generalized headache 361736105 R51.9 Unclear etiology, but does have h/o migrainesD aily, for quite a while now, monthsAPAP not managing pain.Labs stableWill check cervical x rayAdded daily riboflavin 400 mg daily - monitor x 2 months.Add excedrin migraine 2 tabs po qid prn, keep doses 4 hrs apart, x 1 month, then re-evalMon itor closely Addendum - has allergy to ASA, unknown reaction. To be safe will cancel excedrin order above. [id number] Edie Serna NP [facility] [address] [address] 07/05/2023 13:26:04 07/12/2023 10:35:44 Abrasion [id number] T14.8XXA pt with abrasion to right index fingerns wash, pat dry, bacitracin and bandaid daily x 3 daysmonito r for infection [id number] PAT REARDON NP [facility] [address] [address] 1 07/11/2023 15:58:56 07/18/2023 14:12:18 Generalized headache 143437375 R51.9 h/o migrainess evere cervical DDD identified on x ray Pain seems to be better Continue current POC -riboflavi n 400 mg daily - monitor x 2 months.APA P 650 mg tidglucosa mineduloxe jonny 20 mg qd Monitor Dementia 12871220 F02.B0 Monitor mood, behaviorsO n duloxetine 20 mg qd - continuePs ych eval prn 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 Degenerati on of cervical intervertebral disc 57236913 M50.30 See abovechron ic headachese malaika DDD C5-O6Oldna nue APAP tid, glucosamin e, duloxetine Monitor pain, neuros [id number] PAT REARDON NP [facility] [address] [address] 08/15/2023 15:34:19 08/18/2023 14:23:32 Bilateral hearing loss 15575006 H91.93 [facility].Teena is medically cleared to be fitted for hearing aides for daily use.She is agreeable to this, and will improve her quality of life. [id number] Edie Serna NP [facility] [address] [address] 09/04/2023 11:59:31 09/07/2023 13:42:40 Hearing loss 63180875 H90.0 no hearing aid in placeaudio logy exam if HCP allows Acute COVID-19 [id number] 8 U07.1 COVID positive result noted on routine facility testing on 09/03/23. 09/03 simulation technician provider notified and labs ordered. Had a cough a few days prior maybe cough started on 09/01 2/5start paxlovid 300mg/100 mg po bid x 5 daysrobitu ssin 10 ml po q 4 hours prn coughmucin ex dm 600mg/30 po q 12 hours x 10 daysencour age po fluids > 2liters/24 hoursisola tion per facility protocolbm p and cbc mondays x 2 weeksvital s dailymonit or for sequelae [id number] Edie Serna NP [facility] [address] 09/06/2023 16:02:56 09/11/2023 14:22:44 Acute COVID-19 [id number] U07.1 COVID positive result noted on routine facility testing on 09/03/23. 09/03 simulation technician provider notified and labs ordered. Had a cough a few days prior maybe cough started on 09/01 2/5start paxlovid 300mg/100 mg po bid x 5 daysrobitu ssin 10 ml po q 4 hours prn coughmucin ex dm 600mg/30 po q 12 hours x 10 daysencour age po fluids > 2liters/24 hoursisola tion per facility protocolbm p and cbc mondays x 2 weeksvital s daily 09/06 cont plan above monitor for sequelae Hearing loss 72456995 H9 0.0 no hearing aid in placeaudio logy exam if HCP allows [id number] Edie Serna NP [facility] [address] 09/07/2023 13:29:09 09/11/2023 15:14:41 Acute COVID-19 [id number] U07.1 COVID positive result noted on routine facility testing on 09/03/23. 09/03 simulation technician provider notified and labs ordered. Had a cough a few days prior maybe cough started on 09/01 2/5start paxlovid 300mg/100 mg po bid x 5 daysrobitu ssin 10 ml po q 4 hours prn coughmucin ex dm 600mg/30 po q 12 hours x 10 daysencour age po fluids > 2liters/24 hoursisola tion per facility protocolbm p and cbc mondays x 2 weeksvital s daily 09/07 cont plan above monitor for sequelae Hearing loss 66587224 H9 0.0 no hearing aid in placeaudio logy exam if HCP allows [id number] Adelina Galarza MD [address] [place] [address] 09/11/2023 15:06:07 10/03/2023 12:46:01 Adult failure to thrive syndrome 383564331 R62.7 With sig. wt. loss over the past 2 months.Sta rted on mighty shake BID on 09/08Monitor wts and labs.Follo wed by bagger and stock handler helper. Acute COVID-19 [id number] 8 U07.1 Tested + on 09/03/23.Had mild sxs. Mostly resolvedCo mpleted paxlovid on 09/09To use dexamethas one, fluids, supplement al O2 prn for sxs.Contin ue to monitor O2 sats, temp, GI sxs and po intake.Mon itor for sequelae Hearing loss 49479026 H9 0.0 Hearing aids were lost.Facil ity in process of replacing them. Generalized headache 162 526423 G44.89 No c/o today.Cont inue APAP 650 mg TID.Monito r sxs. Degenerati on of cervical intervertebral disc 28189786 M50.30 Continue meds as above and glucosamin e 1000 mg BID. Dementia 01576948 F02.B0 Continues at baselineCo ntinue duloxetine 20 mg qdContinue supportive care, expect decline.HC P invokedMon itor mood and behaviors. Psych consult prn. Mixed anxi ety and depressive disorder 307632222 F41.8 Mood good today.Cont inue meds as above.Demi tor mood.Consu lt psych prn Essential hypertension 41254998 I10 BP in good control on lisinopril 10 mg qd.BP goal for this elderly woman is permissive HTN, with SBP<150 and DBP<90Moni tor BP and labs. Anemia 274235039 D50.8 Hgb in nl range (barely) on last check.Cont inue FeSO4 325 mg qd with Vit C 500 mg qd for absorption .Monitor CBC Osteoarthritis 515507553 M15.0 Continue meds as above.Demi tor sxs. [id number] Edie Serna NP [facility] [address] [address] 10/16/2023 09:01:00 10/19/2023 09:13:39 Adult failure to thrive syndrome 481860313 R62.7 With sig. wt. loss over the past 2 months.Sta rted on mighty shake BID on 09/08 but no 113 lbs and was 114lbsMoni tor wtslast weight 10/03 will request new weight todayFollo wed by bagger and stock handler helper. Dementia 31712001 F02.B0 Continues at baselineCo ntinuedulo xetine 20 mg qdContinue supportive care, expect decline.HC P invokedMon itor mood and behaviors. Psych consult prn. Hearing loss 63451213 H9 0.0 Hearing aids were lost.Facil ity in process of replacing them. Nasal congestion 4378825 0 R09.81 has some nasal jeanie, hoarse voice this am 10/15 with positive exposure to flu from roommate3/ 18start resp panelsalt water gargles q 3 hours prn sore throatrobi tussin 10 ml po q 4 hours prn cough/jeanie x 14 dayssuppor tive caremonito r for flu like symptoms Falls 069986063 R29.6 hx of falls with right humerus fx in pastno falls recently, however more than 1-2 in mechanical falls within last year and with injury that resolvedtr ip hazards removed from roomsuppor tive caresafety measuresmo nitor [id number] Edie Serna NP [facility] [address] [address] 11/01/2023 13:05:54 11/03/2023 16:25:24 Adult failure to thrive syndrome 598074720 R62.7 With sig. wt. loss over the past 2 months.Sta rted on mighty shake BID on 09/08 approx same as last month 114lbs last on 10/15Monito r wtsFollowe d by bagger and stock handler helper. Dementia 66341776 F02.B0 Continues at baseline with wandering at timesConti nueduloxet ine 20 mg qdContinue supportive care, expect decline.HC P invokedMon itor mood and behaviors. Psych consult prn. Hearing loss 54027900 H9 0.0 Hearing aids were lost.Facil ity in process of replacing them.remai ns hard of hearing [id number] Edie Serna NP [facility] [address] [address] 11/27/2023 14:59:27 11/29/2023 12:46:25 Dementia 74968367 F02.B0 Continues at baseline with wandering at timesConti nueduloxet ine 20 mg qdContinue supportive care, expect decline.HC P invokedMon itor mood and behaviors. Psych consult prn. Hearing loss 71548658 H9 0.0 Hearing aids were lost.Facil ity in process of replacing them.remai ns hard of hearing Depressive disorder 3062 9007 F32.A with anxiety and exit seeking behaviors will get urinalysis to rule out infectious cause contcymbal ta 20 mg qdmonitor moodpsych prn [id number] Edie Serna NP [facility] [address] [address] 11/30/2023 11:20:30 12/05/2023 16:26:19 Dementia 55364294 F02.B0 Continues at baseline with wandering at timesConti nueduloxet ine 20 mg qdContinue supportive care, expect decline.HC P invokedMon itor mood and behaviors. Psych consult prn. Hearing loss 15081248 H9 0.0 Hearing aids were lost.Facil ity in process of replacing them.remai ns hard of hearing Urinary tr act infectious disease 91476158 N39.0 she likely has a UTI, however with difficulty obtaining another urine and prior results being possibly contaminat ed it is reasonable to treat with increased behaviors, positive nitrates, bacteria, and leuckocyte s5/2 cipro 500 mg po er daily x 3 daysmonito r for changes [id number] Edie Serna NP [facility] [address] [address] 12/04/2023 12:28:52 12/06/2023 08:37:23 Dementia 26365347 F02.B0 Continues at baseline with wandering at timesConti nueduloxet ine 20 mg qdContinue supportive care, expect decline.HC P invokedMon itor mood and behaviors. Psych consult prn. Hearing loss 49781028 H9 0.0 Hearing aids were lost.Facil ity in process of replacing them.remai ns hard of hearing Osteoarthritis 122653734 M15.0 APAP 650 mg tid and q4h prn nte 3gram/dayg lucosamine 1000 mg bidincreas e muscle and joint external gel 2.5 % to bid and q 6hours prnwill monitor [id number] [facility] [address] 12/15/2023 13:01:32 12/20/2023 08:30:15 Osteoarthritis 482049695 M15.0 APAP 650 mg tid and q4h prn nte 3gram/dayg lucosamine 1000 mg bidmuscle and joint external gel 2.5 % to bid and q 6hours prnwill monitor Dementia 21198967 F02.B0 Continues at baseline with wandering at timesConti nueduloxet ine 20 mg qdContinue supportive care, expect decline.HC P invokedMon itor mood and behaviors. Psych consult prn. Hearing loss 82759272 H9 0.0 Hearing aids were lost.Facil ity in process of replacing them.remai ns hard of hearing Urinary tr act infectious disease 60629423 N39.0 exit seeking remains with slightly decreased agitation post abxshe likely has a UTI, however with difficulty obtaining another urine and prior results being possibly contaminat ed it is reasonable to treat with increased behaviors, positive nitrates, bacteria, and leuckocyte s5/2 cipro 500 mg po er daily x 3 daysmonito r for changes [id number] [facility] [address] 01/10/2024 14:18:21 03/22/2024 15:05:32 Osteoarthritis 514912125 M15.0 controlled with tylenolmon itor for effectcurr ently appears stable without complaint Dementia 20521415 F02.B0 appears with baseline moderate dementiaHC P invokedcon tinue supportive caremonito r for behaviorsp sych eval prn Hearing loss 29940643 H9 0.0 appears significan t at baselineau diology eval if HCP allows [id number] Edie Serna NP [facility] [address] [address] 01/15/2024 16:48:38 01/17/2024 18:15:30 Acute COVID-19 5043764159 U07.1 COVID positive result noted on routine facility testing on 01/13/24.no recent labs and tested positive a few days ago will start antiviral today as time is short for window01/14 startmolnu piravir 800 mg po bid x 5 daysrobitu ssin 10 ml po q 4 hours prn coughencou rage po fluids > 2liters/24 hoursisola tion per facility protocolbm p and cbc on 01/15vitals daily monitor for sequelae [id number] Edie Serna NP [facility] [address] [address] 01/17/2024 14:38:10 01/24/2024 15:32:56 Acute COVID-19 7208053779 U07.1 COVID positive on 7startmoln upiravir 800 mg po bid x 5 daysrobitu ssin 10 ml po q 4 hours prn coughencou rage po fluids > 2liters/24 hoursisola tion per facility protocolbm p and cbc on 01/15vitals daily 01/16 labs not done, unclear why, overall seems to be resolvingn sg aware of need for labsmonito r for sequelae [id number] Edie Serna NP [facility] [address] [address] 01/19/2024 11:12:02 01/24/2024 16:30:00 Acute COVID-19 5118056312 U07.1 COVID positive on 7startmoln upiravir 800 mg po bid x 5 daysrobitu ssin 10 ml po q 4 hours prn coughencou rage po fluids > 2liters/24 hoursisola tion per facility protocolbm p and cbc on 01/15vitals daily 01/16 labs not done, unclear why, aidan refused, overall seems to be resolving 01/18 symtoms resolved and antiviral never obtained from pharmacy and now out of windowcovi d negative and off precaution s at this time monitor for sequelae Dementia 66854088 F02.B0 Continues at baseline with wandering at times01/18 attempting to leave unit on several occassions today and agitated with yelling and swearing start trazodone 25 mg po q 8 hours prn agitation x 14 daysstart psych consult Continuedu loxetine 20 mg qdContinue supportive care, expect decline.HC P invokedMon itor mood and behaviors. Psych consult prn. [id number] Edie Serna, TREVON [facility] [address] 01/25/2024 09:54:55 01/30/2024 09:58:44 Acute COVID-19 4216891282 U07.1 resolved on 01/24COVID positive on 01/13/2401/14 orderedmol nupiravir 800 mg po bid x 5 days -never recieved from pharmacyro bitussin 10 ml po q 4 hours prn coughencou rage po fluids > 2liters/24 hoursisola tion per facility protocolbm p and cbc on 01/15vitals daily 01/16 labs not done, unclear why, aidan refused, overall seems to be resolving 01/18 symptoms resolved and antiviral never obtained from pharmacy and now out of windowcovi d negative and off precaution s at this time monitor for sequelae Dementia 62366276 F02.B0 Continues at baseline with wandering at times01/18 attempting to leave unit on several occassions rn psychiatric visit from 01/18 rec trazodone 25 mg po bid prn for symptoms of agitation and anxiety and rec considerin g transfer to locked dementia unit for her multiple elopement attempts.w ill agree with aboveConti nueduloxet ine 20 mg qdContinue supportive care, expect decline.HC P invokedMon itor mood and behaviors. Psych consult prn. [id number] SCOTT LI [facility] [address] [address] 01/29/2024 11:04:51 02/08/2024 09:50:53 Dementia 54781009 F02.B0 see hpiwill decrease trazodone from 25 mg BID to 12. 5 mg BID prncontinu e to monitor mood and behaviornu rsing will update provider with changes. [id number] Edie Serna NP [facility] [address] [address] 02/05/2024 09:47:53 02/08/2024 13:31:10 Dementia 37701710 F01.C0 conttrazod one 12. 5 mg BID prncontinu e to monitor mood and behaviornu rsing will update provider with changes. Falls 892763001 R29.6 hx of falls with right humerus fx in pastappear s to be a mechanical fall today on 02/04, no injuries, has baseline knee soreness, no xray at this timetrip hazards removed from roomsuppor tive caresafety measuresmo nitor Osteoarthritis 005813075 M15.0 contAPAP 650 mg tid and q4h prn nte 3gram/dayg lucosamine 1000 mg bidmuscle and joint external gel 2.5 % to bid and q 6hours prnwill monitor [id number] Edie Serna NP [facility] [address] [address] 02/07/2024 12:39:17 02/08/2024 15:56:07 Dementia 17116549 F01.C0 conttrazod one 12. 5 mg BID prn to be reeval on 02/11, getting occcontinu e to monitor mood and behaviornu rsing will update provider with changes. Fatigue 56176287 R53.83 reports increased fatigue7/1 0 startUA with cnscbc and cmpwill rule out infectious cause vs post covid weaknessmo nitor [id number] Edie Serna NP [facility] [address] [address] 02/29/2024 13:47:34 03/01/2024 13:44:45 Dementia 45728848 F02.B0 trazodone 12. 5 mg BID prn behaviors, has not used in some time and dc'dcontin ue to monitor mood and behaviornu rsing will update provider with changes. Acute COVID-19 907949926 8 U07.1 resolved on 01/24COVID positive on 01/13/24 with mild course without antiviralm onitor for sequelae Falls 201543759 R29.6 hx of falls with right humerus fx in pastmechan ical fall on 02/04, no injuries, no xraytrip hazards removed from roomsuppor tive caresafety measuresmo nitor Osteoarthritis 880797686 M15.0 contAPAP 650 mg tid and q4h prn nte 3gram/dayg lucosamine 1000 mg bidmuscle and joint external gel 2.5 % to bid and q 6hours prnwill monitor Hearing loss 44982603 H9 0.0 Hearing aids were lost.Facil ity in process of replacing them.remai ns hard of hearing Essential hypertension 61709333 I10 bp stablelisi nopril 10 m dailywill monitor [id number] Edie Serna NP [facility] [address] [address] 03/11/2024 11:05:46 03/13/2024 11:15:29 Dementia 29039397 F02.B0 continue to monitor mood and behaviornu rsing will update provider with changes.co nt duloxetine Hearing loss 84869619 H9 0.0 Hearing aids were lost.Facil ity in process of replacing them.remai ns hard of hearing Seasonal a llergic rhinitis 656118999 J30.2 has seasonal rhinitis in hxcould be baseline with allergies start claritin 10 mg po daily in ammonitor Cough 74658370 R05.9 03/11new cough with glossy eyes and rhinitisst artrobitus sin 10 ml po q 4hours prn coughcxr 2 view ro pnacovid swabmucine x dm 600/30mg po q amcbc with diff and bmp in ammonitor [id number] Edie Serna NP [facility] [address] [address] 03/15/2024 14:32:18 03/22/2024 15:14:41 Cough 06106549 R05.9 resolved, likely viral illness and possibly allergies with EOS 0.74 slightly elevated.h ad cough with glossy eyes and rhinitis, resolved cxr 2 view ro pna, neg for acute disease, covid swab negativeco ntrobituss in 10 ml po q 4hours prn coughmucin ex dm 600/30mg po q am, helpingcla ritinmonit or Dementia 91095139 F02.B0 continue to monitor mood and behaviornu rsing will update provider with changes.co nt duloxetine Hearing loss 28182651 H9 0.0 Hearing aids were lost.Facil ity in process of replacing them.remai ns hard of hearing Seasonal a llergic rhinitis 707143163 J30.2 has seasonal rhinitis in hx, seems to be helpingcou ld be baseline with allergiesc ont claritin 10 mg po daily in ammonitor [id number] Adelina Galarza MD [address] [address] 04/30/2024 19:55:54 05/01/2024 10:43:32 Adult failure to thrive syndrome 356824367 R62.7 With continued wt. loss.Has now lost a total of 12# since admission. Started on mighty shakes BID on 2/9Monitor wts and labs.Recon sult bagger and stock handler helper. Consider mirtazapin e. Dementia 04208988 F02.B0 With sl. declineCon tinue duloxetine 20 mg qdContinue supportive care, expect continued decline.HC P invokedMon itor mood and behaviors. Psych consult prn. Generalized headache 162 755759 G44.89 No c/o tonight.Co ntinue APAP 650 mg TID.Monito r sxs. Degenerati on of cervical intervertebral disc 01516362 M50.30 Continue meds as above and glucosamin e 1000 mg BID. Mixed anxi ety and depressive disorder 564666463 F41.8 Mood good tonight.Co ntinue meds as above.Demi tor mood.Consu lt psych prn Essential hypertension 52005265 I10 BP remains in good control on monthly checks.Con tinue lisinopril 10 mg qd.BP goal for this elderly woman is permissive HTN, with SBP<150 and DBP<90Moni tor BP and labs. Anemia 280878404 D50.8 Hgb remains in nl rangeConti nue FeSO4 325 mg qd with Vit C 500 mg qd for absorption .Monitor CBC Osteoarthritis 278652818 M15.0 Continue meds as above.Demi tor sxs. Hearing loss 83487768 H9 0.0 Hearing aids were lost.Facil ity in process of replacing them. History of SARS-CoV-2 29 96165714 73062500 Z86.16 Tested + on 09/03/23.Now recoveredM onitor for sequelae Cough 36931160 R05.9 Resolved.C ontinue robitussin 10 ml po q 4 hrs prnConside r stopping Mucinex DM 600/30mg qamMonitor Seasonal a llergic rhinitis 943234243 J30.2 Improved.C ontinue claritin 10 mg qdMonitor sxs. [id number] Edie Serna NP [facility] [address] 05/06/2024 09:58:19 05/07/2024 09:22:34 Dementia 80635569 F02.B0 With sl. [id number]/ 7 start trazodone 25 mg po bid and q 12 hours prn agitation x 14 daysContin ueduloxeti ne 20 mg qdContinue supportive care, expect continued decline.HC P invokedMon itor mood and behaviors. Psych consult prn. Mixed anxi ety and depressive disorder 340519204 F41.8 Mood good tonight.Co ntinue meds as above.Demi tor mood.Consu lt psych prn Osteoarthritis 450837272 M15.0 Continue meds as above.Demi tor sxs. Hearing loss 81245700 H9 0.0 Hearing aids were lost.Facil ity in process of replacing them. Cough 52886661 R05.9 Resolving with rhinitisCo ntinue robitussin 10 ml po q 4 hrs prncont Mucinex DM 600/30mg qammonitor for need of adjust or stop if ablecough improvingc ovid swabMonito r Seasonal a llergic rhinitis 647498634 J30.2 baseline with rhinitisCo ntinue claritin 10 mg qdMonitor sxs. [id number] [facility] [address] [address] 05/20/2024 13:02:10 05/22/2024 10:44:06 Dementia 12488501 F02.B0 With sl. declinecon ttrazodone 25 mg po bid and q 12 hours prn agitation x 14 daysduloxe jonny 20 mg qdContinue supportive care, expect continued decline.HC P invokedMon itor mood and behaviors. Psych consult prn. Mixed anxi ety and depressive disorder 572360450 F41.8 Mood good tonight.Co ntinue meds as above.Demi tor mood.Consu lt psych prn1/du e to increased agitation and anxiety will order cbc and bmp and urinalysis (hopefully she will comply) to rule out infectious cause Osteoarthritis 012226966 M15.0 Continue meds as above.Demi tor sxs. Hearing loss 14130607 H9 0.0 Hearing aids were lost.Facil ity in process of replacing them. [id number] Edie Serna NP [address] [address] 07/05/2024 11:11:29 07/08/2024 13:09:40 Dementia 50399511 F02.B0 With sl. declinecon tcong trazodone 25 mg po bid and q 12 hours prn agitation x 14 daysduloxe jonny 20 mg qdContinue supportive care, expect continued decline.HC P invokedMon itor mood and behaviors. Psych consult prn. Mixed anxi ety and depressive disorder 248249841 F41.8 Mood good tonight.Co ntinue meds as above.Demi tor mood.Consu lt psych prnurine done with UTI see UTI above Osteoarthritis 713795411 M15.0 Continue meds as above.Demi tor sxs. Hearing loss 72647668 H9 0.0 Hearing aids were lost.Facil ity in process of replacing them. Urinary tr act infectious disease 70276870 N39.0 exit seeking remains with slightly decreased agitation1 2 finally complied for urinalysis on 07/03 and shows UTI > 100,000 strep-cult ure not back yet07/05 start augmentin 875/125mg po bid x 10days with probiotic1 09/05 cbc and cmp on tuesday 07/10monit or for changes [id number] Edie Serna NP [facility] [address] 07/11/2024 15:16:33 08/02/2024 11:43:50 Urinary tract infectious disease 84151924 N39.0 exit seeking remains with slightly decreased agitation1 09/05 finally complied for urinalysis on 07/03 and shows UTI > 100,000 strep-cult ure not back yet07/05 start augmentin 875/125mg po bid x 10days with probiotic1 09/05 cbc and cmp on 07/11 clinically improving on abx, no s/sget another cbc and bmp on 07/15 to assess for wbc improvemen t or change and monitor closely in the meantimeli syeda leukocytos is due to utimonitor for changes Dementia 36982711 F02.B0 With sl. declinecon ttrazodone 25 mg po bid and q 12 hours prn agitation x 14 daysduloxe jonny 20 mg qdContinue supportive care, expect continued decline.HC P invokedMon itor mood and behaviors. Psych consult prn. Mixed anxi ety and depressive disorder 053620548 F41.8 Mood good todaydulox etine 20 mg po dailytrazo done 25 mg po bid and prn anxietyCon tinue meds as above.Demi tor mood.Consu lt psych prnurine done with UTI see UTI above Osteoarthritis 766742969 M15.0 Continue meds as above.Demi tor sxs. Hearing loss 80970664 H9 0.0 Hearing aids were lost.Facil ity in process of replacing them. [id number] Edie Serna NP [facility] [address] [address] 08/29/2024 08:07:46 08/30/2024 11:08:23 Urinary tract infectious disease 40483065 N39.0 exit seeking remains with slightly decreased agitationo n 07/05 started on augmentin 875/125mg po bid x 10days with probiotico n 07/11 clinically improving on abx, no s/swbc resolvingm onitor for changesnot e: she often refuses labs Dementia [id number] F02.B0 With sl. declinecon ttrazodone 25 mg po bid and q 12 hours prn agitationd uloxetine 20 mg qdContinue supportive care, expect continued decline.HC P invokedMon itor mood and behaviors. Psych consult prn. Mixed anxi ety and depressive disorder [id number] F41.8 Mood good todaydulox etine 20 mg po dailytrazo done 25 mg po bid and prn anxietyCon tinue meds as above.Demi tor mood.Consu lt psych prnurine done with UTI see UTI above Osteoarthritis [id number] M15.0 Continue meds as above.Demi tor sxs. Hearing loss [id number] H9 0.0 Hearing aids were lost.08/29 audiology referral for severe hearing lossneed to speak loudly into right ear or write things down to communicat e Excessive cerumen in ear canal [id number] H61.23 pt with large amount of cerumen to bilateral earsdebrox 4 gtts tid to both ears, flush day 6monitor [id number] PAT REARDON NP [address] [address] 09/24/2024 13:00:47 09/24/2024 13:20:19 Recurrent falls [id number] R29.6 Unwittness ed fall 09/22 resulting in left wrist painX ray + for fx.PT OT eval and txMonitor neuros, VS Closed fra cture of left wrist [id number] S62.92XA s/p fall 09/22 resulting in left wrist fracture and abrasionSe en [facility] spl[facility], referred to OrthoHas appt. tomorrow with probable surgical interventi on thereafter .APAP prn painElevat e armMonitor CSMUpdate Ortho with concernsRe turned with order for Augmentin 875 mg bid x 10 days - unclear if for concern of abrasion infection vs. UTI or other etiology. Urinary tr act infectious disease [id number] N39.0 ???Returne d with order for Augmentin 875 mg bid x 10 days, unclear as to why she is on thisMainta in fluidsSaint [facility] tor [facility] Concerns Section Related Observation LastModified by Organization Detai ls LastModified Time None Recorded Concern Status LastModified by Organization Details LastModified Time None Recorded Advance Directives Directive Y: Payers Encounter Date Sequence Insurance Name Policy Number Policy Rubio Covered Member ID Rubio Member ID Guarantor Name 05/20/2024 1 [place] [employer] Teena Gonzalez [id number] Teena Baceski 07/05/2024 1 [place] [employer] Teena Wayne Bacekimberele [id number] Teena Baceski 07/11/2024 1 [place] [employer] Teena Wayne Bacekimberlee [id number] Teena Baceski 08/29/2024 1 [place] [employer] Teena Wayne Bacerobi [id number] Teena Baceski 09/24/2024 1 [place] [employer] Teena Gonzalez [id number] Teena Baceski 09/24/2024 2 [place] [facility] Teena Gonzalez [id number] Teena Gonzalez Notes Date Note Type Note Provider Name and Address Organization Details Recorded Time 05/20/2024 text/html This is an 84 yo woman, LTC resident, seen for an acute visit. Her PMH includes HTN, CAD, OA, s/p Covid 08/2022, hx of migraines, and seasonal allergies.Teena has been here since 11/2022 due to worsening dementia, wandering and care needs unable to be met in the community. Teena is seen for increased exit seeking behaviors and was seen by psych who rec trazodone for agitation with effect. She continues to attempt leaving including today. She is convinced to have a seat and let this provider see her. She does admit to being tired today. Vitals checked and stable. She denies any congestion, shortness of breath, wheezes, or urinary difficulties however is very hard of hearing and difficult to tell if she understands. Will get workup for increased behaviors on the weekend and fatigue today. Edie Serna, TREVON [address] [facility], [address], [place], [address], [employer] 05/20/2024 13:28:16 07/05/2024 text/html This is an 84 yo woman, LTC resident, seen for a routine rounding visit today. Her PMH includes HTN, CAD, OA, s/p Covid 08/2022, hx of migraines, and seasonal allergies.Teena has been here since 11/2022 due to worsening dementia, wandering and care needs unable to be met in the community.On 05/06 She is also noted to have increased exit seeking behaviors and was seen by psych who rec trazodone. Will agree and start today as she was able to get to first floor on Monday per staff. On 05/20 Teena is seen regarding increased nasal drainage lately and feeling tired. She remains with URI symptoms and thought to be allergies, so started on Claritin and Mucinex recently and still states nasal congestion. Will swab for covid as it is in the facility. On 06/14 she was seen by manager psychology without changes noted. Overall, Teena has increased anxiety, weakness, and more confused lately. She had refused a urinalysis for some time, however staff recently able to send urinalysis on 07/03 showing large leuks, heavy bacteria, 34 epithelial cells, and nitrate neg. Culture shows >100,000 CFU/mL Streptococcus alpha-hemolytic without any sensitivities back yet. Labs ordered on several occassions however she often refuses. Will order abx today. Weight similar to recent weight of 109 lbs however seem to fluctuate by 5 lbs every month consistently. Vitals stable otherwise. A COVID test was done 07/05 and negative. On exam, Vitals checked and stable. She denies any congestion, shortness of breath, wheezes, or urinary difficulties however is very hard of hearing and difficult to tell if she understands. Edie Serna, CHAIN MACHINE OPERATOR [address] [facility], [address], [place], [address], [facility] [employer] 07/05/2024 12:14:59 07/11/2024 text/html This is an 84 yo woman, LTC resident, seen for a acute rounding visit today. Her PMH includes HTN, CAD, OA, s/p Covid 08/2022, hx of migraines, and seasonal allergies.Teena has been here since 11/2022 due to worsening dementia, wandering and care needs unable to be met in the community. Teena has had increased anxiety, weakness, and more confused lately. She had refused a urinalysis for some time, however staff recently able to send urinalysis on 07/03 showing large leuks, heavy bacteria, 34 epithelial cells, and nitrate neg. Culture shows >100,000 CFU/mL Streptococcus alpha-hemolytic and culture sensitivities not done for this organism. This organism is usually sensitive to pcn. Labs ordered on several occassions however she often refuses. A COVID test was done 07/05 and negative. Overall, nursing states Teena is improving and back to her baseline lately. She started augmentin on 07/05 -07/15 for UTI and now seems improved. She agreed to have labs done on 07/10/24 and shows a wbc of 14.8. No fevers, chills, and seems she is feeling better. Since she is clinically improving will recheck cbc and bmp on 07/17. On exam, She is in the bathroom on the toilet without any complaints. she eating, drinking and moving bowels without difficulty. She denies any congestion, shortness of breath, wheezes, or urinary difficulties however is very hard of hearing. Edie Serna NP [address] [facility], [facility] [address], [place], [address], [employer] 08/02/2024 11:20:52 08/29/2024 text/html This is an 84 yo woman, LTC resident, seen for a routine rounding visit [...] hearing aides as they were lost. This CHAIN MACHINE OPERATOR needs to write on a paper for her to hear that her ears have wax. Edie Serna NP [address] [facility], [address], [place], [address], [employer] 08/29/2024 11:20:06 09/24/2024 text/html Teena is seen tod ay for an acute visit. She sustained a fall on 09/22, with resulting left wrist pain.X ray obtained, positive for fracture, sent to [facility] for eval and tx.Seen in ER, splint placed, referral made to Ortho for outpt. eval.Minimal paperwork for review, but Augmentin started 875 mg bid x 10 days, unclear as to why. No urine report seen, ? related to abrasion. Upon exam today, Teena is in bed, awake, alert, but appears tired. Communication difficult due to [place]. Family at bedside, no concerns, appears comfortable, trying to assist with po fluids.Has Ortho appt. tomorrow with probable surgical repair post appointment. PAT REARDON NP [address] [facility], [address], [place], [address], [facility] [employer] 09/24/2024 13:20:18 OBGyn Episode No OBEpisode recorded.
--- OUTSIDE RECORDS SUMMARY | 2024-09-25 08:05 | XMS_ITS | Encounter Summary ---
Author Organization [facility] Address [address] [place] [address] Care Team Providers Care Loader Engineer Name Role Phone Louis Brownlee MD Primary Care Provider [phone] Encounter Details Date Type Department Care Team (Latest Contact Info) Description 07/27/2024 Lab Requisition [facility] - Main Lab [address] [place] [address] Louis Brownlee MD [address] [place] [address] [address] [place], [address] Atherosclerotic heart disease of [place] coronary artery without angina pectoris; Anemia, unspecified Social History Tobacco Use Types Packs/Day Years [...] 4:47 AM EST Atherosclerotic heart disease of [place] coronary artery without angina pectoris Anemia, unspecified documented in this encounter Results * (ABNORMAL) Complete blood count (07/29/2024 4:47 AM EST) WBC 11.4(H) 4.8 - 10.8 K/mcL LAB HEMETOLOGY METHOD 07/29/2024 9:28 AM EST [facility] RBC 3.20(L) 3.80 - 4.80 M/mcL LAB HEMETOLOGY METHOD 07/29/2024 9:28 AM EST [facility] Hemoglobin 9.4(L) 11.5 - 16.0 g/dL LAB HEMETOLOGY METHOD 07/29/2024 9:28 AM [facility] Hematocrit 31.1(L) 35.0 - 47.0 % LAB HEMETOLOGY METHOD 07/29/2024 9:28 AM [facility] MCV 96.9 79.0 - 98.0 FL LAB HEMETOLOGY METHOD 07/29/2024 9:28 AM EST [facility] MCH 29.3 27.0 - 32.0 pcg LAB HEMETOLOGY METHOD 07/29/2024 9:28 AM [facility] MCHC 30.2(L) 32.0 - 37.0 g/dL LAB HEMETOLOGY METHOD 07/29/2024 9:28 AM [facility] RDW 12.9 11.0 - 15.0 % LAB HEMETOLOGY METHOD 07/29/2024 9:28 AM [facility] Platelets 260 130 - 400 K/mcL LAB HEMETOLOGY METHOD 07/29/2024 9:28 AM [facility] MPV 10.4 7.0 - 11.0 FL LAB HEMETOLOGY METHOD 07/29/2024 9:28 AM [facility] NRBC 0.0 <1.0 % LAB HEMETOLOGY METHOD 07/29/2024 9:28 AM EST [facility] NRBC Absolute 0.00 <0.10 K/mcL LAB HEMETOLOGY METHOD 07/29/2024 9:28 AM [facility] Blood Venous blood specimen / Unknown Venipuncture / Unknown 07/29/2024 4:47 AM EST 07/29/2024 8:28 AM EST us Louis Brownlee MD LAB BLOOD ORDERABLES Final Resul t [facility] [address] [place], [place] [address] [phone] documented in this encounter Visit Diagnoses Diagnosis Atherosclerotic heart disease of [place] coronary artery without angina pectoris Anemia, unspecified documented in this encounter Care Teams Loader Engineer Relationship Specialty Start Date End Date Louis Brownlee MD [address] [place] [address], [phone] PCP - General Family Medicine 07/04/24 documented as of this encounter
--- NOTE | 2024-09-25 08:16 | MHC.OFFVIS ---
Vital Signs 09/25/24 08:17 Height 5 ft 2 in Weight 120 lb BMI 21.9 Intake Visit Reasons: FC-LT Wrist Pyxliprg-Ssdm-7/23/25 Intake Note: Teena 84 yr old right hand dominant female presents today with her son Brian, for her left wrist pain / distal radius fracture after a trip and fall in 09/22/24. [place] [facility] [place] where she stated that she wasn't sure what happened but her wrist is swollen. Son believes she probably went to get up in the night time at her rehab center and fell. She was reduced in ED and placed in splint. Currently she has swelling and bruising. Hx of alzheimer's disease, dementia, anemia, osteoarthritis, HTN, anxiety, and CAD Allergies aspirin Allergy (Unknown, Verified 09/25/24 08:27) Unknown Sulfa (Sulfonamide Antibiotics) Allergy (Unknown, Verified 09/25/24 08:27) Unknown HPI HPI FC-LT Wrist Rpmkzxox-Hlfd-0/23/25: Details: Teena is an 84 year old right hand dominant woman, here with her son, for a left distal radius fracture, after a fall, DOI: 09/22/24. She was seen in the ED, her wrist was reduced, and placed in a Sugar-Tong splint. Most of the appointment was conducted with discussion between myself and the patient's son. The patient was initially awake in clinic but fell asleep in her wheelchair soon into her appointment. She has significant dementia and is hard of hearing. She has a Hx of Alzheimers, Dementia, and CAD. She resides in a assisted. Review of Systems Const All systems reviewed & are unremarkable except as noted in HPI and below Physical Exam Vital Signs: BMI result Body Mass Index 21.9 Const General: cooperative, healthy appearing and no acute distress Orientation/consciousness: patient oriented x3 HEENT Head: Yes normocephalic and Yes atraumatic Eyes EOM: EOMs intact bilaterally Resp Effort & Inspection: normal respiratory effort and able to speak in complete sentences Cardio Jugular venous distension: no JVD Skin General skin exam: turgor normal Rashes: no rashes Neuro General: patient oriented x3 Extrem Other: Evaluation of Left Upper Extremity: The patient is in no acute distress Patient was in a wheelchair, and was initially awake but within a few minutes she fell asleep in a wheelchair. She is in a left sugar-tong splint which was clean dry and intact. Good cap refill to the fingers which were warm Radiographs: 3 views of the left wrist were taken, viewed, and compared to post-reduction radiographs from 09/22/24. They show a comminuted, displaced distal radius fracture, with the distal articular fragment partially sitting on the end of the radius, and is significantly displaced. Prior to reduction there was 100% translocation of the distal fragment and carpus. Psych Appearance: grossly normal Affect: normal affect Attitude: cooperative Assessment & Plan Assessment & Plan (1) Fracture of left distal radius: Code(s): S52.502A - Unspecified fracture of the lower end of left radius, initial encounter for closed fracture Category: Medical (2) Alzheimer dementia: Code(s): G30.9 - Alzheimer's disease, unspecified; F02.80 - Dementia in other diseases classified elsewhere, unspecified severity, without behavioral disturbance, psychotic disturbance, mood disturbance, and anxiety Category: Medical Plan Assessment & Plan: 1. Left distal radius fracture, comminuted displaced From a fall, DOI: 09/22/24 S/P reduction in ED, 09/22/24 I educated her and her son and her daughter who is flxgh-kc-bhrerykv about this condition I discussed operative and non-operative treatment options. I am recommending surgery. The patient and her family would like to proceed with surgery The risks and benefits of operative treatment were discussed with the patient and the patient wishes to proceed with surgery. These risks include, but are not limited to risk of damage to blood vessels, nerves, tendons, infection, recurrence, incomplete relief of preoperative symptoms, persistent pain, possible need for further surgery and the risks associated with regional blocks and anesthesia. The plan is to take the patient to the operating room sometime on 09/30/24 for the following procedures: 1. Left distal radius ORIF, under general All of the preoperative paperwork including the consent was reviewed today. All the patient's questions were answered. The patient understands that they will be contacted by our chief of surgery soon to schedule this procedure She denies Diabetes, blood thinners, asthma, lung, kidney issues She has CAD, Alzheimer's, and Dementia. She resides in a assisted and has a Hx of a heart attack several years ago. Discuss possible cardiac clearance with anesthesia Her daughter has POA over the patient, but she was not here today due to requiring surgery of her own. I spoke with her son & Yoly about signing the consent forms for surgery, and spoke with the patient's daughter, Huma Keating, over the phone to obtain consent for surgery, with Yoly acting as a witness. Her daughter is confined to a wheelchair with an Achilles tendon injury, so verbal consent over the phone will likely be required by Anesthesia prior to surgery Scribed for Erica Mock MD by Juan Mathews, senior medical technologist, on 09/25/24 at 9:05 AM, EST. Orders: Orders XR wrist LT min 3V Today M25.532 - Pain in left wrist Coding Level of Care Code New Pt Level 5 (23986) Diagnoses Fracture of left distal radius S52.502A Alzheimer dementia G30.9; F02.80
[2024-09-25 08:17] VITALS: BMI 21.9
== END 2024-09-25 09:41 | disposition home or self-care (01) ==
PROVIDERS: PCP Family Medicine; Visit Provider Orthopaedic Surgery
DX: S52.502A Unspecified fracture of the lower end of left radius, initial encounter for closed fracture (principal); G30.9 Alzheimer's disease, unspecified; F02.80 Dementia in other diseases classified elsewhere, unspecified severity, without behavioral disturbance, psychotic disturbance, mood disturbance, and anxiety
CPT/HCPCS: 99204

== ENCOUNTER → 2024-09-25 07:57 | Outpatient (BNVA) | payer MEDICARE, MEDICAID, SELFPAY | PROVIDERS: PCP Family Medicine; Visit Provider Orthopaedic Surgery | DX: S52.502A Unspecified fracture of the lower end of left radius, initial encounter for closed fracture (principal); G30.9 Alzheimer's disease, unspecified; F02.80 Dementia in other diseases classified elsewhere, unspecified severity, without behavioral disturbance, psychotic disturbance, mood disturbance, and anxiety | CPT/HCPCS: 99202 ==

== ENCOUNTER → 2024-09-25 07:59 | Outpatient (BNV) | payer MEDICARE, MEDICAID, SELFPAY | PROVIDERS: Visit Provider Radiology Diagnostic Radiology | DX: S52.352A Displaced comminuted fracture of shaft of radius, left arm, initial encounter for closed fracture (principal); W01.0XXA Fall on same level from slipping, tripping and stumbling without subsequent striking against object, initial encounter | CPT/HCPCS: 73110 ==

== ENCOUNTER 2024-09-30 08:55 | Day surgery (SDC) | payer MEDICARE, MEDICAID, SELFPAY ==
--- OUTSIDE RECORDS SUMMARY | 2024-09-25 11:35 | XMS_ITS | Encounter Summary ---
Author Organization [facility] Address [address] [place] [address] Care Team Providers Care Chief Of Surgery Name Role Phone Louis Brownlee MD Primary Care Provider [phone] Encounter Details Date Type Department Care Team (Late st Contact Info) Description 07/04/[address] [facility] - Main Lab [address] [facility] [place] [address] Louis Brownlee MD [address] [facility] [address] [place], [address] Altered mental status, unspecified; Other nursing home (current) drug therapy Social History Tobacco Use [...] PM EST Altered mental status, unspecified Other records and information manager (current) drug therapy URINALYSIS WITH REFLEX MICROSCOPIC AND CULTURE Routine 07/03/2024 3:00 PM EST Altered mental status, unspecified Other records and information manager (current) drug therapy CULTURE URINE Routine 07/03/2024 3:00 PM EST Altered mental status, unspecified Other nursing home (current) drug therapy documented in this encounter Results * (ABNORMAL) Urinalysis with reflex microscopic and culture (07/03/2024 3:00 PM EST) Specific [place] Urine 1.023 1.003 - 1.030 LAB URINALYSIS - AUTOMATED METHOD 07/04/2024 10:47 AM [facility] pH, Urine 6.0 5.0 - 8.0 pH LAB URINALYSIS - AUTOMATED METHOD 07/04/2024 10:47 AM [facility] Leukocytes, Urine Large(A) Negative LAB URINALYSIS - AUTOMATED METHOD 07/04/2024 10:47 AM [facility] Nitrite, Urine Negative Negative LAB URINALYSIS - AUTOMATED METHOD 07/04/2024 10:47 AM [facility] Protein, Urine 30(A) <=Trace mg/dL LAB URINALYSIS - AUTOMATED METHOD 07/04/2024 10:47 AM [facility] Glucose, Urine Negative Negative mg/dL LAB URINALYSIS - AUTOMATED METHOD 07/04/2024 10:47 AM [facility] Ketones, Urine Trace(A) Negative mg/dL LAB URINALYSIS - AUTOMATED METHOD 07/04/2024 10:47 AM [facility] Urobilinogen , Urine 0.2 0.2 - 1.0 mg/dL LAB URINALYSIS - AUTOMATED METHOD 07/04/2024 10:47 AM [facility] Bilirubin, Urine Negative Negative LAB URINALYSIS - AUTOMATED METHOD 07/04/2024 10:47 AM [facility] Blood, Urine Trace(A) Negative LAB URINALYSIS - AUTOMATED METHOD 07/04/2024 10:47 AM [facility] RBC, Urine 6.9(H) 0 - 4 /HPF LAB URINALYSIS - AUTOMATED METHOD 07/04/2024 10:47 AM [facility] WBC, Urine 1,532.2(H) 0 - 4 /HPF LAB URINALYSIS - AUTOMATED METHOD 07/04/2024 10:47 AM [facility] Squamous Epithelial, Urine 34 0 - 60 /LPF LAB URINALYSIS - AUTOMATED METHOD 07/04/2024 10:47 AM [facility] Crystals, Urine Light Calcium Oxalate crystals. /LPF LAB URINALYSIS - AUTOMATED METHOD 07/04/2024 10:47 AM [facility] Bacteria, Urine Many(A) Negative /HPF LAB URINALYSIS - AUTOMATED METHOD 07/04/2024 10:47 AM [facility] Hyaline Casts, Urine 0.9 0 - 3 /LPF LAB URINALYSIS - AUTOMATED METHOD 07/04/2024 10:47 AM [facility] Urine Urine specimen obtained by clean catch procedure / Unknown Non-blood Collection / Unknown 07/03/2024 3:00 PM EST 07/04/2024 9:23 AM EST us Louis Brownlee MD LAB URINE ORDERABLES Final Resul t Performing Organization Address [facility] de Phone Number [facility] [address] [place] [address], [place] [phone] * (ABNORMAL) Culture urine (07/03/2024 3:00 PM EST) Culture, Urine >100,000 CFU/mL Aerococcus urinae(A) EMILY 07/06/2024 1:59 PM [facility] Comment: Susceptibility testing not routinely performed. [...] ORDER PATTI Final Result Performing Organization Address City/[facility]/ZIP Co de Phone Number [facility] [address] [place] [address], [place] [phone] documented in this encounter Visit Diagnoses Diagnosis Altered mental status, unspecified Other records and information manager (current) drug therapy documented in this encounter Care Teams Chief Of Surgery Relationship Specialty Start Date End Date Louis Brownlee MD [address] [place] [address], [phone] PCP - General Family Medicine 07/04/24 documented as of this encounter
--- OUTSIDE RECORDS SUMMARY | 2024-09-25 11:35 | XMS_ITS | Encounter Summary ---
Author Organization [facility] Address [address] [place] [address] Care Team Providers Care Cripple Worker Name Role Phone Louis Brownlee MD Primary Care Provider [phone] Encounter Details Date Type Department Care Team (Late st Contact Info) Description 07/16/2024 Lab Requisition [facility] - Main Lab [address] [place] [address] Louis Brownlee MD [address] [place] [address] [address] [place], [phone] Essential (primary) hypertension Social History Tobacco [...] LAB CHEMISTRY METHOD 07/17/2024 11:42 AM EST [facility] Potassium 4.3 3.5 - 5.5 mmol/L LAB CHEMISTRY METHOD 07/17/2024 11:42 AM EST [facility] Chloride 104 96 - 110 mmol/L LAB CHEMISTRY METHOD 07/17/2024 11:42 AM [facility] CO2 31 21 - 32 mmol/L LAB CHEMISTRY METHOD 07/17/2024 11:42 AM [facility] Anion Gap 4 3 - 11 LAB CHEMISTRY METHOD 07/17/2024 11:42 AM [facility] Glucose 82 70 - 100 mg/dL LAB CHEMISTRY METHOD 07/17/2024 11:42 AM [facility] BUN 20 5 - 25 mg/dL LAB CHEMISTRY METHOD 07/17/2024 11:42 AM [facility] Creatinine 0.82 0.50 - 1.10 mg/dL LAB CHEMISTRY METHOD 07/17/2024 11:42 AM [facility] eGFR 70 >=60 mL/min/1. 73m2 LAB CHEMISTRY METHOD 07/17/2024 11:42 AM [facility] Comment:Calculation based on the??Chronic Kidney Disease Epidemiology Collaboration (CKD-EPI) equation refit??without adjustment for race. BUN/Creatinine Ratio 24.4 LAB CHEMISTRY METHOD 07/17/2024 11:42 AM [facility] Calcium 8.9 8.5 - 10.5 mg/dL LAB CHEMISTRY METHOD 07/17/2024 11:42 AM [facility] AST (SGOT) 16 10 - 42 unit/L LAB CHEMISTRY METHOD 07/17/2024 11:42 AM [facility] ALT (SGPT) 11 10 - 60 unit/L LAB CHEMISTRY METHOD 07/17/2024 11:42 AM [facility] Alkaline Phosphatase 83 42 - 121 unit/L LAB CHEMISTRY METHOD 07/17/2024 11:42 AM [facility] Total Protein 6.5 6.0 - 8.0 g/dL LAB CHEMISTRY METHOD 07/17/2024 11:42 AM [facility] Albumin 3.3 3.2 - 5.0 g/dL LAB CHEMISTRY METHOD 07/17/2024 11:42 AM [facility] Total Bilirubin 0.3 0.0 - 1.4 mg/dL LAB CHEMISTRY METHOD 07/17/2024 11:42 AM [facility] Blood Venous blood specimen / Unknown Venipuncture / Unknown 07/17/2024 7:35 AM EST 07/17/2024 10:21 AM EST us Louis Brownlee MD LAB BLOOD ORDERABLES Final Resul t [facility] [address] [place] [address], * (ABNORMAL) Complete blood count (07/17/2024 7:35 AM EST) WBC 14.3(H) 4.8 - 10.8 K/mcL LAB HEMETOLOGY METHOD 07/17/2024 10:44 AM [facility] RBC 3.80 3.80 - 4.80 M/mcL LAB HEMETOLOGY METHOD 07/17/2024 10:44 AM [facility] Hemoglobin 11.1(L) 11.5 - 16.0 g/dL LAB HEMETOLOGY METHOD 07/17/2024 10:44 AM [facility] Hematocrit 36.2 35.0 - 47.0 % LAB HEMETOLOGY METHOD 07/17/2024 10:44 AM [facility] MCV 96.0 79.0 - 98.0 FL LAB HEMETOLOGY METHOD 07/17/2024 10:44 AM [facility] MCH 29.4 27.0 - 32.0 pcg LAB HEMETOLOGY METHOD 07/17/2024 10:44 AM [facility] MCHC 30.7(L) 32.0 - 37.0 g/dL LAB HEMETOLOGY METHOD 07/17/2024 10:44 AM [facility] RDW 12.2 11.0 - 15.0 % LAB HEMETOLOGY METHOD 07/17/2024 10:44 AM EST [facility] Platelets 419(H) 130 - 400 K/mcL LAB HEMETOLOGY METHOD 07/17/2024 10:44 AM EST [facility] MPV 10.2 7.0 - 11.0 FL LAB HEMETOLOGY METHOD 07/17/2024 10:44 AM EST [facility] NRBC 0.0 <1.0 % LAB HEMETOLOGY METHOD 07/17/2024 10:44 AM EST [facility] NRBC Absolute 0.00 <0.10 K/mcL LAB HEMETOLOGY METHOD 07/17/2024 10:44 AM [facility] Blood Venous blood specimen / Unknown Venipuncture / Unknown 07/17/2024 7:35 AM EST 07/17/2024 10:09 AM EST us Louis Brownlee MD LAB BLOOD ORDERABLES Final Resul t [facility] [address] [place] [address], documented in this encounter Visit Diagnoses Diagnosis Essential (primary) hypertension Unspecified essential hypertension documented in this encounter Care Teams Cripple Worker Relationship Specialty Start Date End Date Louis Brownlee MD [address] [place] [phone] PCP - General Family Medicine 07/04/24 documented as of this encounter
--- OUTSIDE RECORDS SUMMARY | 2024-09-25 11:35 | XMS_ITS | Encounter Summary ---
Author Organization [facility] Address [address] [place] [address] Care Team Providers Care Painter Chassis Name Role Phone Louis Brownlee MD Primary Care Provider [phone] Encounter Details Date Type Department Care Team (Late st Contact Info) Description 07/09/2024 Lab Requisition [facility] - Main Lab [address] [place] [address] Louis Brownlee MD [address] [place] [address] [address] [place], [phone] Essential (primary) hypertension Social History Tobacco [...] LAB CHEMISTRY METHOD 07/10/2024 12:28 PM EST [facility] Potassium 4.6 3.5 - 5.5 mmol/L LAB CHEMISTRY METHOD 07/10/2024 12:28 PM EST [facility] Chloride 110 96 - 110 mmol/L LAB CHEMISTRY METHOD 07/10/2024 12:28 PM [facility] CO2 25 21 - 32 mmol/L LAB CHEMISTRY METHOD 07/10/2024 12:28 PM [facility] Anion Gap 7 3 - 11 LAB CHEMISTRY METHOD 07/10/2024 12:28 PM [facility] Glucose 81 70 - 100 mg/dL LAB CHEMISTRY METHOD 07/10/2024 12:28 PM [facility] BUN 41(H) 5 - 25 mg/dL LAB CHEMISTRY METHOD 07/10/2024 12:28 PM [facility] Creatinine 1.09 0.50 - 1.10 mg/dL LAB CHEMISTRY METHOD 07/10/2024 12:28 PM [facility] eGFR 50(L) >=60 mL/min/1. 73m2 LAB CHEMISTRY METHOD 07/10/2024 12:28 PM [facility] Comment:Calculation based on the??Chronic Kidney Disease Epidemiology Collaboration (CKD-EPI) equation refit??without adjustment for race. BUN/Creatinine Ratio 37.6 LAB CHEMISTRY METHOD 07/10/2024 12:28 PM [facility] Calcium 9.0 8.5 - 10.5 mg/dL LAB CHEMISTRY METHOD 07/10/2024 12:28 PM [facility] Blood Venous blood specimen / Unknown Venipuncture / Unknown 07/10/2024 7:02 AM EST 07/10/2024 11:40 AM EST us Louis Brownlee MD LAB BLOOD ORDERABLES Final Resul t [facility] [address] [place] [address], * (ABNORMAL) Complete blood count (07/10/2024 7:02 AM EST) WBC 14.8(H) 4.8 - 10.8 K/mcL LAB HEMETOLOGY METHOD 07/10/2024 12:20 PM [facility] RBC 3.60(L) 3.80 - 4.80 M/mcL LAB HEMETOLOGY METHOD 07/10/2024 12:20 PM [facility] Hemoglobin 10.7(L) 11.5 - 16.0 g/dL LAB HEMETOLOGY METHOD 07/10/2024 12:20 PM [facility] Hematocrit 35.1 35.0 - 47.0 % LAB HEMETOLOGY METHOD 07/10/2024 12:20 PM [facility] MCV 98.0 79.0 - 98.0 FL LAB HEMETOLOGY METHOD 07/10/2024 12:20 PM [facility] MCH 29.9 27.0 - 32.0 pcg LAB HEMETOLOGY METHOD 07/10/2024 12:20 PM [facility] MCHC 30.5(L) 32.0 - 37.0 g/dL LAB HEMETOLOGY METHOD 07/10/2024 12:20 PM [facility] RDW 12.7 11.0 - 15.0 % LAB HEMETOLOGY METHOD 07/10/2024 12:20 PM [facility] Platelets 469(H) 130 - 400 K/mcL LAB HEMETOLOGY METHOD 07/10/2024 12:20 PM [facility] MPV 9.9 7.0 - 11.0 FL LAB HEMETOLOGY METHOD 07/10/2024 12:20 PM [facility] NRBC 0.0 <1.0 % LAB HEMETOLOGY METHOD 07/10/2024 12:20 PM [facility] NRBC Absolute 0.00 <0.10 K/mcL LAB HEMETOLOGY METHOD 07/10/2024 12:20 PM [facility] Blood Venous blood specimen / Unknown Venipuncture / Unknown 07/10/2024 7:02 AM EST 07/10/2024 11:40 AM EST us Louis Brownlee MD LAB BLOOD ORDERABLES Final Resul t [facility] [address] [place] [address], documented in this encounter Visit Diagnoses Diagnosis Essential (primary) hypertension Unspecified essential hypertension documented in this encounter Care Teams Painter Chassis Relationship Specialty Start Date End Date Louis Brownlee MD [address] [place] [address] [address] [place], [phone] PCP - General Family Medicine 07/04/24 documented as of this encounter
--- OUTSIDE RECORDS SUMMARY | 2024-09-25 11:36 | XMS_ITS | Encounter Summary ---
Author Organization [facility] Address [address] [place] [address] Care Team Providers Care Immigration Investigator Name Role Phone Louis Brownlee MD Primary Care Provider [phone] Encounter Details Date Type Department Care Team (Latest Contact Info) Description 07/27/2024 Lab Requisition [facility] - Main Lab [address] [place] [address] Louis Brownlee MD [address] [place] [address] [address] [place], [phone] Atherosclerotic heart disease of [place] coronary artery without angina pectoris; Anemia, unspecified [...] 4:47 AM EST Atherosclerotic heart disease of [place] coronary artery without angina pectoris Anemia, unspecified documented in this encounter Results * (ABNORMAL) Complete blood count (07/29/2024 4:47 AM EST) WBC 11.4(H) 4.8 - 10.8 K/mcL LAB HEMETOLOGY METHOD 07/29/2024 9:28 AM EST [facility] RBC 3.20(L) 3.80 - 4.80 M/mcL LAB HEMETOLOGY METHOD 07/29/2024 9:28 AM EST [facility] Hemoglobin 9.4(L) 11.5 - 16.0 g/dL LAB HEMETOLOGY METHOD 07/29/2024 9:28 AM [facility] Hematocrit 31.1(L) 35.0 - 47.0 % LAB HEMETOLOGY METHOD 07/29/2024 9:28 AM [facility] MCV 96.9 79.0 - 98.0 FL LAB HEMETOLOGY METHOD 07/29/2024 9:28 AM EST [facility] MCH 29.3 27.0 - 32.0 pcg LAB HEMETOLOGY METHOD 07/29/2024 9:28 AM [facility] MCHC 30.2(L) 32.0 - 37.0 g/dL LAB HEMETOLOGY METHOD 07/29/2024 9:28 AM [facility] RDW 12.9 11.0 - 15.0 % LAB HEMETOLOGY METHOD 07/29/2024 9:28 AM [facility] Platelets 260 130 - 400 K/mcL LAB HEMETOLOGY METHOD 07/29/2024 9:28 AM [facility] MPV 10.4 7.0 - 11.0 FL LAB HEMETOLOGY METHOD 07/29/2024 9:28 AM [facility] NRBC 0.0 <1.0 % LAB HEMETOLOGY METHOD 07/29/2024 9:28 AM EST [facility] NRBC Absolute 0.00 <0.10 K/mcL LAB HEMETOLOGY METHOD 07/29/2024 9:28 AM [facility] Blood Venous blood specimen / Unknown Venipuncture / Unknown 07/29/2024 4:47 AM EST 07/29/2024 8:28 AM EST us Louis Brownlee MD LAB BLOOD ORDERABLES Final Resul t [facility] [address] [place], [place] [address] [phone] documented in this encounter Visit Diagnoses Diagnosis Atherosclerotic heart disease of [place] coronary artery without angina pectoris Anemia, unspecified documented in this encounter Care Teams Immigration Investigator Relationship Specialty Start Date End Date Louis Brownlee MD [address] [place] [address], [phone] PCP - General Family Medicine 07/04/24 documented as of this encounter
--- OUTSIDE RECORDS SUMMARY | 2024-09-25 11:36 | XMS_ITS | Clinical Summary ---
Author Organization [address] [facility] Address [address] [place] [address] Phone Care Team Providers Care Physical Therapy Professor Name Role Phone Louis Brownlee MD Primary Care Provider [phone] Encounters Date Type Department Care Team Description 07/27/2024 Lab Requisition [facility] Lab [address] [place] [phone] Louis Brownlee MD Atherosclerotic heart disease of [place] coronary artery without angina pectoris; Anemia, unspecified 07/16/2024 Lab Requisition [facility] Lab [address] [place] [phone] Louis Brownlee MD Essential (primary) hypertension 07/09/2024 Lab Requisition [facility] Lab [address] [place] [phone] Louis Brownlee MD Essential (primary) hypertension 07/04/2024 Lab Requisition [facility] Lab [address] [place] [phone] Louis Brownlee MD Altered mental status, unspecified; Other extermination supervisor (current) drug therapy from Last 3 Months [...] 4:47 AM EST Atherosclerotic heart disease of [place] coronary artery without angina pectoris Anemia, unspecified [...] PM EST Altered mental status, unspecified Other halfway (current) drug therapy URINALYSIS WITH REFLEX MICROSCOPIC AND CULTURE Routine 07/03/2024 3:00 PM EST Altered mental status, unspecified Other extermination supervisor (current) drug therapy CULTURE URINE Routine 07/03/2024 3:00 PM EST Altered mental status, unspecified Other halfway (current) drug therapy from Last 3 Months Results * (ABNORMAL) Complete blood count (07/29/2024 4:47 AM EST) Only the most recent of3 resultswithin the time period is included. WBC 11.4(H) 4.8 - 10.8 K/mcL LAB HEMETOLOGY METHOD 07/29/2024 9:28 AM [facility] RBC 3.20(L) 3.80 - 4.80 M/mcL LAB HEMETOLOGY METHOD 07/29/2024 9:28 AM [facility] Hemoglobin 9.4(L) 11.5 - 16.0 g/dL LAB HEMETOLOGY METHOD 07/29/2024 9:28 AM [facility] Hematocrit 31.1(L) 35.0 - 47.0 % LAB HEMETOLOGY METHOD 07/29/2024 9:28 AM [facility] MCV 96.9 79.0 - 98.0 FL LAB HEMETOLOGY METHOD 07/29/2024 9:28 AM [facility] MCH 29.3 27.0 - 32.0 pcg LAB HEMETOLOGY METHOD 07/29/2024 9:28 AM [facility] MCHC 30.2(L) 32.0 - 37.0 g/dL LAB HEMETOLOGY METHOD 07/29/2024 9:28 AM [facility] RDW 12.9 11.0 - 15.0 % LAB HEMETOLOGY METHOD 07/29/2024 9:28 AM EST [facility] Platelets 260 130 - 400 K/mcL LAB HEMETOLOGY METHOD 07/29/2024 9:28 AM EST [facility] MPV 10.4 7.0 - 11.0 FL LAB HEMETOLOGY METHOD 07/29/2024 9:28 AM EST [facility] NRBC 0.0 <1.0 % LAB HEMETOLOGY METHOD 07/29/2024 9:28 AM EST [facility] NRBC Absolute 0.00 <0.10 K/mcL LAB HEMETOLOGY METHOD 07/29/2024 9:28 AM EST [facility] Blood Venous blood specimen / Unknown Venipuncture / Unknown 07/29/2024 4:47 AM EST 07/29/2024 8:28 AM EST us Louis Brownlee MD LAB BLOOD ORDERABLES Final Resul t [facility] [address] [place] [address], * Comprehensive metabolic panel (07/17/2024 7:35 AM EST) Sodium 139 133 - 145 mmol/L LAB CHEMISTRY METHOD 07/17/2024 11:42 AM EST [facility] Potassium 4.3 3.5 - 5.5 mmol/L LAB CHEMISTRY METHOD 07/17/2024 11:42 AM [facility] Chloride 104 96 - 110 mmol/L LAB CHEMISTRY METHOD 07/17/2024 11:42 AM [facility] CO2 31 21 - 32 mmol/L LAB CHEMISTRY METHOD 07/17/2024 11:42 AM EST [facility] Anion Gap 4 3 - 11 LAB CHEMISTRY METHOD 07/17/2024 11:42 AM [facility] Glucose 82 70 - 100 mg/dL LAB CHEMISTRY METHOD 07/17/2024 11:42 AM [facility] BUN 20 5 - 25 mg/dL LAB CHEMISTRY METHOD 07/17/2024 11:42 AM [facility] Creatinine 0.82 0.50 - 1.10 mg/dL LAB CHEMISTRY METHOD 07/17/2024 11:42 AM [facility] eGFR 70 >=60 mL/min/1. 73m2 LAB CHEMISTRY METHOD 07/17/2024 11:42 AM [facility] Comment:Calculation based on the??Chronic Kidney Disease Epidemiology Collaboration (CKD-EPI) equation refit??without adjustment for race. BUN/Creatinine Ratio 24.4 LAB CHEMISTRY METHOD 07/17/2024 11:42 AM [facility] Calcium 8.9 8.5 - 10.5 mg/dL LAB CHEMISTRY METHOD 07/17/2024 11:42 AM [facility] AST (SGOT) 16 10 - 42 unit/L LAB CHEMISTRY METHOD 07/17/2024 11:42 AM [facility] ALT (SGPT) 11 10 - 60 unit/L LAB CHEMISTRY METHOD 07/17/2024 11:42 AM [facility] Alkaline Phosphatase 83 42 - 121 unit/L LAB CHEMISTRY METHOD 07/17/2024 11:42 AM [facility] Total Protein 6.5 6.0 - 8.0 g/dL LAB CHEMISTRY METHOD 07/17/2024 11:42 AM [facility] Albumin 3.3 3.2 - 5.0 g/dL LAB CHEMISTRY METHOD 07/17/2024 11:42 AM [facility] Total Bilirubin 0.3 0.0 - 1.4 mg/dL LAB CHEMISTRY METHOD 07/17/2024 11:42 AM [facility] Blood Venous blood specimen / Unknown Venipuncture / Unknown 07/17/2024 7:35 AM EST 07/17/2024 10:21 AM EST us Louis Brownlee MD LAB BLOOD ORDERABLES Final Resul t [facility] [address] [place] [address], [place] [phone] * (ABNORMAL) Basic metabolic panel (07/10/2024 7:02 AM EST) Sodium 142 133 - 145 mmol/L LAB CHEMISTRY METHOD 07/10/2024 12:28 PM [facility] Potassium 4.6 3.5 - 5.5 mmol/L LAB CHEMISTRY METHOD 07/10/2024 12:28 PM [facility] Chloride 110 96 - 110 mmol/L LAB CHEMISTRY METHOD 07/10/2024 12:28 PM [facility] CO2 25 21 - 32 mmol/L LAB CHEMISTRY METHOD 07/10/2024 12:28 PM [facility] Anion Gap 7 3 - 11 LAB CHEMISTRY METHOD 07/10/2024 12:28 PM [facility] Glucose 81 70 - 100 mg/dL LAB CHEMISTRY METHOD 07/10/2024 12:28 PM [facility] BUN 41(H) 5 - 25 mg/dL LAB CHEMISTRY METHOD 07/10/2024 12:28 PM [facility] Creatinine 1.09 0.50 - 1.10 mg/dL LAB CHEMISTRY METHOD 07/10/2024 12:28 PM [facility] eGFR 50(L) >=60 mL/min/1. 73m2 LAB CHEMISTRY METHOD 07/10/2024 12:28 PM [facility] Comment:Calculation based on the??Chronic Kidney Disease Epidemiology Collaboration (CKD-EPI) equation refit??without adjustment for race. BUN/Creatinine Ratio 37.6 LAB CHEMISTRY METHOD 07/10/2024 12:28 PM [facility] Calcium 9.0 8.5 - 10.5 mg/dL LAB CHEMISTRY METHOD 07/10/2024 12:28 PM [facility] Blood Venous blood specimen / Unknown Venipuncture / Unknown 07/10/2024 7:02 AM EST 07/10/2024 11:40 AM EST us Louis Brownlee MD LAB BLOOD ORDERABLES Final Resul t [facility] [address] [place] [address], [place] [phone] * (ABNORMAL) Urinalysis with reflex microscopic and culture (07/03/2024 3:00 PM EST) Specific [place] Urine 1.023 1.003 - 1.030 LAB URINALYSIS - AUTOMATED METHOD 07/04/2024 10:47 AM [facility] pH, Urine 6.0 5.0 - 8.0 pH LAB URINALYSIS - AUTOMATED METHOD 07/04/2024 10:47 AM [facility] Leukocytes, Urine Large(A) Negative LAB URINALYSIS - AUTOMATED METHOD 07/04/2024 10:47 AM [facility] Nitrite, Urine Negative Negative LAB URINALYSIS - AUTOMATED METHOD 07/04/2024 10:47 AM [facility] Protein, Urine 30(A) <=Trace mg/dL LAB URINALYSIS - AUTOMATED METHOD 07/04/2024 10:47 AM [facility] Glucose, Urine Negative Negative mg/dL LAB URINALYSIS - AUTOMATED METHOD 07/04/2024 10:47 AM [facility] Ketones, Urine Trace(A) Negative mg/dL LAB URINALYSIS - AUTOMATED METHOD 07/04/2024 10:47 AM [facility] Urobilinogen , Urine 0.2 0.2 - 1.0 mg/dL LAB URINALYSIS - AUTOMATED METHOD 07/04/2024 10:47 AM [facility] Bilirubin, Urine Negative Negative LAB URINALYSIS - AUTOMATED METHOD 07/04/2024 10:47 AM [facility] Blood, Urine Trace(A) Negative LAB URINALYSIS - AUTOMATED METHOD 07/04/2024 10:47 AM [facility] RBC, Urine 6.9(H) 0 - 4 /HPF LAB URINALYSIS - AUTOMATED METHOD 07/04/2024 10:47 AM [facility] WBC, Urine 1,532.2(H) 0 - 4 /HPF LAB URINALYSIS - AUTOMATED METHOD 07/04/2024 10:47 AM [facility] Squamous Epithelial, Urine 34 0 - 60 /LPF LAB URINALYSIS - AUTOMATED METHOD 07/04/2024 10:47 AM [facility] Crystals, Urine Light Calcium Oxalate crystals. /LPF LAB URINALYSIS - AUTOMATED METHOD 07/04/2024 10:47 AM [facility] Bacteria, Urine Many(A) Negative /HPF LAB URINALYSIS - AUTOMATED METHOD 07/04/2024 10:47 AM [facility] Hyaline Casts, Urine 0.9 0 - 3 /LPF LAB URINALYSIS - AUTOMATED METHOD 07/04/2024 10:47 AM [facility] Urine Urine specimen obtained by clean catch procedure / Unknown Non-blood Collection / Unknown 07/03/2024 3:00 PM EST 07/04/2024 9:23 AM EST us Louis Brownlee MD LAB URINE ORDERABLES Final Resul t [facility] [address] [place] [address], * (ABNORMAL) Culture urine (07/03/2024 3:00 PM EST) Culture, Urine >100,000 CFU/mL Aerococcus urinae(A) EMILY 07/06/2024 1:59 PM EST [facility] Comment: Susceptibility testing not [...] MICROBIOLOGY - GENERAL ORDER PATTI Final Result [facility] [address] [place] [address], [place] [phone] from Last 3 Months Insurance MEDICARE [place]ICAID - [place] Care Teams Physical Therapy Professor Relationship Specialty Start Date End Date Louis Brownlee MD [address] [place] [address] [address] [place], [phone] PCP - General Family Medicine 07/04/24
[2024-09-30] VITALS (11 sets, daily range): BP systolic 129–162; BP diastolic 63–86; PULSE 84–98; RESP 8–16; TEMP 36.1–37.6; O2SAT 93–96; BMI 21.9
--- NOTE | ~2024-09-30 | FL_ITS ---
EXAMINATION: FLUOROSCOPY GUIDANCE FOR NEEDLE PLACEMENT CLINICAL INFORMATION: Intraoperative guidance COMPARISON: Left wrist 09/25/2024 TECHNIQUE: Intraoperative fluoroscopy was provided to referring physician. FINDINGS/ FL/FL guidance in OR IMPRESSION: 6 digital images obtained in the OR. There is stabilization of comminuted distal radial intra-articular fracture with a dorsal plate and screws in a satisfactory alignment. FLUOROSCOPY TIME: 26.76 seconds DOSE AREA PRODUCT: 0.0440 Gy-cm2 Electronically signed by: Chance Guzman MD 10/02/2024 07:32 AM BORIS
--- NOTE | 2024-09-30 12:00 | HO.ANESPROP2 ---
Documented by User: Magda Curran NP 09/27/24 14:26 HPI - Anesthesia Eval Consult details Narrative: 84yo F for Left Radius Distal Fracture [facility] resident, dementia Per daughter - [place] ~ 2014, possible stent - no issues, no cardiology at this time Requested [facility] provider H&P, but not available at the time of chart review [facility] Active Problems Active Problems: All Active Problems Alzheimer dementia (Acute) Fracture of left distal radius (Acute) Past Medical History Medical History (Updated 09/27/24 @ 10:31 by Yoly Vazquez RN) Anxiety Osteoarthritis Alzheimer dementia Anemia CAD (coronary artery disease) HTN (hypertension) Social History Social History Are you DNR?: Yes Advance Directives: No Advance Directives Information Provided: Yes Meds Allergies Allergy/AdvReac Type Severity Reaction Status Date / Time aspirin Allergy Unknown Unknown Verified 09/25/24 08:27 Sulfa (Sulfonamide Allergy Unknown Unknown Verified 09/25/24 08:27 Antibiotics) Home Medications ?Medication ?Instructions ?Recorded ?Confirmed ?Last Taken ?Type duloxetine 20 mg capsule,delayed 20 mg PO BID 09/25/24 Unknown History release ferrous sulfate 27 mg iron tablet 27 mg PO DAILY 09/25/24 Unknown History glucosamine HCl 750 mg tablet 750 mg PO DAILY 09/25/24 Unknown History lisinopril 10 mg tablet mg PO DAILY 09/25/24 Unknown History loratadine 10 mg tablet (Claritin) 10 mg PO DAILY 09/25/24 Unknown History trazodone 50 mg tablet mg PO 09/25/24 Unknown History Assessment and Plan Assessment Anesthesia Assessment: Chart Reviewed Documented by User: Yoly Ramírez DO 09/30/24 14:57 HPI - Anesthesia Eval Consult details Narrative: 84yo F for Left Radius Distal Fracture [facility] resident, dementia Per daughter - [place] ~ 2014, possible stent - no issues, no cardiology at this time [facility] Past Medical History Medical History (Updated 09/27/24 @ 10:31 by Yoly Vazquez RN) Anxiety Osteoarthritis Alzheimer dementia Anemia CAD (coronary artery disease) HTN (hypertension) Family History Family history of problems with anesthesia: No Surgical History History of Problems with Anesthesia: No Social History Social History Are you DNR?: Yes Advance Directives: No Advance Directives Information Provided: Yes Meds Allergies Allergy/AdvReac Type Severity Reaction Status Date / Time aspirin Allergy Unknown Unknown Verified 09/25/24 08:27 Sulfa (Sulfonamide Allergy Unknown Unknown Verified 09/25/24 08:27 Antibiotics) Home Medications ?Medication ?Instructions ?Recorded ?Confirmed ?Last Taken ?Type duloxetine 20 mg capsule,delayed 20 mg PO BID 09/25/24 Unknown History release ferrous sulfate 27 mg iron tablet 27 mg PO DAILY 09/25/24 Unknown History glucosamine HCl 750 mg tablet 750 mg PO DAILY 09/25/24 Unknown History lisinopril 10 mg tablet mg PO DAILY 09/25/24 Unknown History loratadine 10 mg tablet (Claritin) 10 mg PO DAILY 09/25/24 Unknown History trazodone 50 mg tablet mg PO 09/25/24 Unknown History Exam Exam Date and Time: 09/30/24 1200 Height,Weight and Vital Signs: Height 5 ft 2 in Weight 54.431 kg Vital Signs Temperature 99.7 F 09/30/24 10:23 Pulse Rate 86 09/30/24 10:23 Respiratory Rate 16 09/30/24 10:23 Blood Pressure 155/79 H 09/30/24 10:23 Pulse Oximetry 96 09/30/24 10:23 Oxygen Delivery Method Room Air 09/30/24 10:23 Temperature 99.7 F 09/30/24 10:23 Pulse Rate 86 09/30/24 10:23 Respiratory Rate 16 09/30/24 10:23 Blood Pressure 155/79 H 09/30/24 10:23 Pulse Oximetry 96 09/30/24 10:23 Oxygen Delivery Method Room Air 09/30/24 10:23 Airway Mallampati Class: Patient Non-Cooperative TM Dist: <=3cm Neck ROM: Full Heart: S1S2 Lungs: CTAB Assessment and Plan Assessment Anesthesia Assessment: Anesthesia Plan Discussed and Chart Reviewed Final Anesthetic Review Family History of Problems with Anesthesia: No History of Problems with Anesthesia: No NPO: Yes ASA Class: III Final Preanesthetic Review: No Changes in Pt Med Stat, Meds/Allgs Chart Reviewed, Consent Obtained/Reviewed, Anes Risks/Benef Reviewed and DNR Form (If Appl.) (limited resuscitation (intubation and vasopressors allowed)) Patient Risk: Intermediate Procedure Risk: Low Anesthetic Plan Anesthetic Plan: GA, Regional Block (left brachial plexus block) and Agree w/ Assess. and Plan Disposition: Standard PACU
--- NOTE | 2024-09-30 12:33 | P.OP_ITS ---
Operative Note Operative Note Date of Service: 09/30/24 Narrative: Operative Note Narrative: Preop diagnosis: 1. Left Distal radius fracture, with dorsal translocation Postop diagnosis: Same Procedure: 1. Left Distal radius fracture open reduction internal fixation Surgeon: Erica Mock MD [employer] Architect: None Anesthesia: General anesthesia plus regional block Findings: Left distal radius fracture, her FCR tendon was previously operatively removed Implants: A 3 hole Accu [employer] volar locking plate, with 4x 2.3 mm locking pegs/screws, and 3 3.5 mm cortical screws Tourniquet time: 54 minutes EBL: 5.0 ml Specimen: None Drains: None Complications: None Disposition: Brought to the recovery room in stable condition Plan: Patient with rather advanced dementia. We alerted her usp facility that she should be placed in protective mittens to keep her from removing her postoperative splint and dressing. One-to-one supervision if necessary to keep dressing and splint in place. Follow-up in 10-14 days for wound check, suture removal and postop radiographs The patient will be placed in a short-arm cast . Encouraged no lifting of anything heavier than a cell phone. Indications: The patient is a 84 year old woman with significant dementia and a left distal radius fracture with 100% translocation at the fracture site again today after she removed the splint. . The risks and benefits of operative treatment, including but not limited to risk of damage to blood vessels, nerves, tendons, infection, recurrence, persistent pain or numbness, incomplete resolution of preoperative symptoms, or need for further surgery were discussed with the patient and they wished to proceed with surgery. Procedure: Once consent was obtained patient was brought back to the operating suite and placed in the operating table in a supine position. A regional block was performed by the anesthesia team. Perioperative antibiotics and anesthesia was administered by the anesthesia team. A tourniquet was applied to the proximal aspect of the left upper extremity and the limb was prepped and draped in a standard surgical fashion. The limb was elevated exsanguinated with Esmarch bandage and the tourniquet inflated to 250 mm of mercury for a total tourniquet time of 54 minutes. The FluoroScan was used throughout the case to assess our reduction, and facilitate implant placement. A gentle closed reduction was 1st performed on the patient's left distal radius fracture. Was assessed radiographically before proceeding with the reduction internal fixation. I then made an 8 cm longitudinal incision over the distal aspect of the flexor carpi radialis tendon. The incision was made through the skin to the subcutaneous tissue using a 15. Blade. Then carefully dissected down to palmaris longus tendon she tenotomy scissors. The FCR tendon appears to have been previously excised, likely for an old basal joint arthroplasty. The volar forearm fascia was then incised longitudinally using tenotomy scissors under direct visualization. The palmaris longus tendon was then retracted ulnarly. I identified the interval between the radial artery and the flexor tendons. This interval was developed further with my index finger, releasing some of the muscular fibers of the flexor pollicis longus. A dull weatlander retractor was then placed. I then created an ulnarly based flap of the pronator quadratus by releasing the radial and distal edges using a 15. Blade. A Suarez elevator was used to elevate the pronator quadratus from the volar surface of the distal radius. This then revealed to us our distal radius fracture. An open reduction was then performed on our distal radius fracture. I then placed a short narrow 3 hole [employer] volar locking plate on the volar surface of the distal radius. The fracture reduction was held provisionally with an obliquely placed K-wire placed between the radial styloid advancing retrograde across the fracture site into the shaft of the radius. I placed a single K-wire through the distal aspect of the plate and into the distal radius. This was assessed using fluoroscopic images. I was satisfied with the placement of our plate. I then placed 4x 2.3 mm locking screws/pegs in the distal aspect of the plate and distal radius by 1st drilling bicortically with a 2.0 mm drill bit, measuring with a depth gauge, and placing the appropriate length locking screws/pegs. The placement of our plate and screws was then assessed again using fluoroscopic images. The once satisfied with the placement of the volar locking plate and screws on the distal aspect of the distal radius, the plate was then reduced to the shaft of the radius. I then placed 3 X 3.5 mm cortical screws to the proximal aspect of the plate and into the shaft of the radius. This was done by 1st drilling bicortically with a 2.8 mm drill bit, measuring with a depth gauge, and placing the appropriate length screw. Final radiographs were then obtained. The DRUJ was assessed and found to be stable on exam. I was satisfied with our reduction and placement of all implants. At this point the wound was irrigated with normal saline. The tourniquet was then deflated and hemostasis was obtained with a brief period of local pressure and bipolar monopolar electrocautery. The subcutaneous layer was then reapproximated using some 4-0 Vicryl suture, and the skin edges were reapproximated using some 5 0 Prolene suture. The wound was then infiltrated with some 1% lidocaine with epinephrine postop pain control. A sterile dressing and a short dorsal splint allowing for active flexion and extension of the digits was applied. The patient appears to have tolerated the procedure well and with no complications. All digits were well vascularized conclusion of the case.
--- NOTE | 2024-09-30 12:33 | MHC.SHP ---
Pre-Procedural Eval Section A - 24 Hr Update-Section A only Date of Service: 09/30/24 The patient is an INPATIENT: No Changes since office visit: No Cold of Flu in the past 2 weeks, No New Medical Problems, No Changes in Medication and No Patient answered all questions The patient has been examined within 24 hours of the surgical procedure. The History & Physical has been completed within 30 days and I have reviewed it.: Yes Section B - Complete if H&P > 30 days Chief Complaint: Unspecified fracture of the lower end of left radi Allergies: Allergies Allergy/AdvReac Type Severity Reaction Status Date / Time aspirin Allergy Unknown Unknown Verified 09/25/24 08:27 Sulfa (Sulfonamide Allergy Unknown Unknown Verified 09/25/24 08:27 Antibiotics) Plan I have reviewed the history and physical and performed a pertinent physical examination on my patient. No changes have occurred unless specified. Time Spent With Patient Time: Total time managing care of this patient today ____ minutes.
== END 2024-09-30 17:22 | disposition home or self-care (01) ==
PROVIDERS: Visit Provider Orthopaedic Surgery
PROC: (CPT 25608; principal; 2024-09-30 08:50)
DX: S52.572A Other intraarticular fracture of lower end of left radius, initial encounter for closed fracture (principal); W01.0XXA Fall on same level from slipping, tripping and stumbling without subsequent striking against object, initial encounter; Y93.9 Activity, unspecified; Y92.129 Unspecified place in nursing home as the place of occurrence of the external cause; Y99.9 Unspecified external cause status; G30.9 Alzheimer's disease, unspecified; F02.80 Dementia in other diseases classified elsewhere, unspecified severity, without behavioral disturbance, psychotic disturbance, mood disturbance, and anxiety; D64.9 Anemia, unspecified; I10 Essential (primary) hypertension; I25.10 Atherosclerotic heart disease of native coronary artery without angina pectoris; I25.2 Old myocardial infarction; F41.9 Anxiety disorder, unspecified; M19.90 Unspecified osteoarthritis, unspecified site; H91.90 Unspecified hearing loss, unspecified ear; Z79.51 Long term (current) use of inhaled steroids; Z79.899 Other long term (current) drug therapy; Z66 Do not resuscitate; Z88.2 Allergy status to sulfonamides; Z88.6 Allergy status to analgesic agent
CPT/HCPCS: 25608; C1713; J0131; J0665; J0690; J1100; J2003; J2371; J2405; J2704

== ENCOUNTER → 2024-09-30 08:55 | Outpatient (BNV) | payer MEDICARE, MEDICAID, SELFPAY | PROVIDERS: Visit Provider Orthopaedic Surgery | DX: S52.592A Other fractures of lower end of left radius, initial encounter for closed fracture (principal) | CPT/HCPCS: 25607 ==

== ENCOUNTER 2024-10-16 11:16 | Outpatient (REF) | payer MEDICARE, MEDICAID, SELFPAY ==
--- NOTE | ~2024-10-16 | XR_ITS ---
EXAMINATION: XR WRIST, LEFT CLINICAL INFORMATION: M25.532 - Pain in left wrist COMPARISON: September 25, 2024. TECHNIQUE: PA, lateral, and oblique views of the left wrist. FINDINGS: Metallic placed placed along of the ventral aspect of the distal diaphysis metaphysis and epiphysis of the renal radius with the Normal anatomic alignment of the fracture. Degenerative changes in the carpal bones. Osteopenia versus osteoporosis. The fibroblast cast has been removed. XR/XR wrist LT min 3V IMPRESSION: Status post open reduction internal fixation of displaced fracture distal metaphysis left radius with improved alignment. Electronically signed by: Otoniel Cooley MD 10/17/2024 11:34 AM EDT
== END 2024-10-16 11:17 | disposition home or self-care (01) ==
LOC: HO.HOSX 11:16
PROVIDERS: Visit Provider Orthopaedic Surgery
DX: M25.532 Pain in left wrist (principal); S52.502D Unspecified fracture of the lower end of left radius, subsequent encounter for closed fracture with routine healing; G30.9 Alzheimer's disease, unspecified; Z98.890 Other specified postprocedural states
CPT/HCPCS: 73110; 99212

== ENCOUNTER 2024-10-16 14:15 | Outpatient (AMB) | payer MEDICARE, MEDICAID, SELFPAY ==
--- NOTE | 2024-10-16 14:36 | MHC.OFFVIS ---
Intake Visit Reasons: PO LT distal radius ORIF 09/30/24 AR Intake Note: Teena is an 84 year old right hand dominant female who presents today for a post operative visit s/p Left Distal radius fracture ORIF DOS: 09/30/24 w/ AR. Sutures removed and steri strips applied. Allergies aspirin Allergy (Unknown, Verified 10/16/24 14:46) Unknown Sulfa (Sulfonamide Antibiotics) Allergy (Unknown, Verified 10/16/24 14:46) Unknown HPI HPI PO LT distal radius ORIF 09/30/24 AR: Details: Teena is an 84 year old right hand dominant woman, here with her son, S/p left distal radius ORIF, DOS: 09/30/24, after a fall, DOI: 09/22/24. Most of the appointment was conducted with discussion between myself and the patient's son. It sounds like she is doing well overall. She has significant dementia, is nonverbal and is hard of hearing. She has a Hx of Alzheimers, Dementia, and CAD. She resides in a prison. [facility] Medical History (Updated 09/27/24 @ 10:31 by Yoly Vazquez RN) Anxiety Osteoarthritis Alzheimer dementia Anemia CAD (coronary artery disease) HTN (hypertension) Review of Systems Const All systems reviewed & are unremarkable except as noted in HPI and below Physical Exam Const General: no acute distress and alert Orientation/consciousness: patient oriented x3 Neuro General: patient oriented x3 Extrem Other: The patient has severe dementia, and was in no acute distress The incision is healing well with no erythema drainage or evidence of infection. Sutures removed and Steri-Strips applied Patient was seen in a wheelchair She can weakly bring her fingers towards a fist and back into extension Operative findings: her FCR tendon was previously operatively removed Sensation is intact Cap refill is brisk Radiographs: 3 views of the left wrist were taken and viewed today in clinic. They show a distal radius fracture with satisfactory fracture alignment and position of all implants Psych Appearance: grossly normal Affect: normal affect Attitude: cooperative Assessment & Plan Assessment & Plan (1) Fracture of left distal radius: Code(s): S52.502A - Unspecified fracture of the lower end of left radius, initial encounter for closed fracture Category: Medical (2) Alzheimer dementia: Code(s): G30.9 - Alzheimer's disease, unspecified; F02.80 - Dementia in other diseases classified elsewhere, unspecified severity, without behavioral disturbance, psychotic disturbance, mood disturbance, and anxiety Category: Medical Plan Assessment & Plan: 1. Left distal radius fracture, S/P ORIF DOS: 09/30/24 From a fall, DOI: 09/22/24 S/P reduction in ED, 09/22/24 Patient with rather advanced dementia. The patient appears to be doing well post-operatively I educated her and her son about the post-operative course She was fitted for a velcro wrist splint, to be worn like a cast except for showering for the next 4 weeks I explained the signs and symptoms of infection I discussed activity modifications, she is to lift nothing heavier than a cellphone for the next 6 weeks. No weight bearing at this time. According to her son, she spends most of her time either in bed or in a chair. She will follow up in 3-4 weeks, with X-rays, 3V L wrist, OOP. May discontinue her splint at that time. Consider transition to weight bearing with her walker at about 8 weeks postop. Scribed for Erica Mock MD by Juan Mathews, medical billing manager, on 10/16/24 at 3:00 PM, EST. Orders: Orders XR wrist LT min 3V Today M25.532 - Pain in left wrist Scribe Plan - Not visible on output: Scribed for Erica Mock MD by Juan Mathews, medical billing manager, on [ ] at [ ], EST. Coding Level of Care Code Global (54974) Diagnoses Fracture of left distal radius S52.502A Alzheimer dementia G30.9; F02.80
--- OUTSIDE RECORDS SUMMARY | 2024-10-16 16:37 | XMS_ITS | Continuity of Care Document ---
Author Organization [facility], [facility] Address [address] [place] [address] Care Team Providers Care Timber Bucker Name Role Phone JAMAAL FLORES Primary Care Provider [phone] [facility] - 3RD FLOOR OTHER Assessment No [...] Address Organization Details Recorded Time Orthostatic hypotension 12129644 Active 2020 Modesta bartlett [facility] 13:44:57 Fracture of humerus 66603768 Active 2020 Modesta bartlett [facility] 13:45:01 Insomnia 007258520 Active 2020 Modesta bartlett [facility] 13:46:18 Constipation 51473645 Active 2020 Modesta bartlett [facility] 13:46:26 Essential hypertension 60608208 Active 2020 Modesta bartlett [facility] 13:46:27 Coronary arteriosclero sis 35033803 Active 2020 Adelina Galarza MD [address], [address], [place], [address] , [facility] 19:45:42 Dementia 27160468 Active 2022 PAT REARDON NP [address], [address], [place], [address], [facility] ki work [facility] 3 12:53:33 Hyperlipidemi a 11811414 Active 2022 PAT REARDON NP [address], [address], [place], [address], [facility] ki work [facility] 3 12:53:44 Depressive disorder 12318511 Active 2022 PAT REARDON NP [address], [address], [place], [address], [facility] ki work [facility] 3 12:53:57 Osteoarthriti s 423935251 Active 2022 cheryle. right knee PAT REARDON NP [address], [address], [place], [address], [facility] ki work [facility] 3 12:54:14 Hearing loss 22127086 Active 2022 PAT REARDON NP [address], [address], [place], [address], [facility] 3 12:54:24 History of migraine 865971341 Active 2022 PAT REARDON NP [address], [address], [place], [address], [facility] ki work [facility] 3 12:57:42 Seasonal allergic rhinitis 247434055 Active 2022 PAT REARDON NP [address], [address], [place], [address], [facility] ki work [facility] 3 12:57:51 Anemia 232368802 Active 2022 PAT REARDON NP [address], [address], [place], [address], [facility] ki work [facility] 3 15:35:43 Falls 509555244 Active 2022 Edie Serna NP [address], [address], [place], [address], [facility] 3 15:07:17 Abrasion 613469949 Active 2022 Edie Serna NP [address], [address], [place], [address], [facility] 3 15:07:26 Pain in left arm 657018413 Active 2022 Edie Serna NP [address], [address], [place], [address], [facility] 3 15:08:01 Generalized headache 957026660 Active 2022 PAT REARDON NP [address], [address], [place], [address], [facility] 3 11:52:55 Acute COVID-19 9935943107 Active 2023 Adelina Galarza MD [address], [address], [place], [address], [facility] 4 18:51:00 Adult failure to thrive syndrome 995367536 Active 2023 Adelina Galarza MD [address], [address], [place], [address], [facility] 4 18:51:38 Problem Notes None recorded. [...] Not available Not available Not available 09/08/2020 [id number] SNOMED Not Available Not Available Not Available Medications Not known to be on any medication Vitals Date Recorded Body height Systolic blood pressure Diastolic blood pressure Provider Name and Address Organization Details Last Updated DateTime 10/12/2024 162.56 cm 143 mm[Hg] 65 mm[Hg] Louis Brownlee MD [address], [address], [place], [address], [facility] 10/12/2024 11:48:13 Social History Question Answer Notes LastModified by Organizat ion Details LastModified Time Tobacco Smoking Status Former Smoker Has quit on and off since 1996, quit for good 2019. Smoked a ppd since age 13 PAT REARDON, TREVON [address], [address], [place], [address], [facility] 12/08/2022 12:55:26 Do You Have An Advance Directive? Yes [email or web address] Information not available 12/08/2022 What Is Your Level Of Alcohol Consumption? None [email or web address] Information not available 09/08/2020 What Is Your Code Status? DNR/DNI DNH, No G Tube, No Dialysis [email or web address] Information not available 12/08/2022 Do You Or Have You Ever Used E-cigarettes Or Vape? Never Used Electronic Cigarettes Information not available 09/11/2020 Where Do You Live? [facility] Information not available 09/11/2023 Legal Guardian? No Informati on not available 09/11/2023 Do You Have A Medical Power Of Director Risk? Yes Has HCP, Invoke Upon Admission [email or web address] Information not available 12/08/2022 What Was The Date Of Your Most Recent Tobacco Screening? 12/08/2022 Information not available 12/08/2022 Do You Have An Out Of Hospital DNR? Yes Information not available 09/11/2023 What Is Your Relationship Status? Information not available 09/11/2023 Do You Or Have You Ever Used Smokeless Tobacco? Never Used Smokeless Tobacco Information not available 09/11/2020 Do You Use Any Illicit Or Recreational Drugs? No [email or web address] Information not available 12/08/2022 Has Tobacco Cessation Counseling Been Provided? No [email or web address] Information not available 12/08/2022 How Many Years Have You Smoked Tobacco? 60 Information not available 09/11/2020 Do You Or Have You Ever Used Any Other Forms Of Tobacco Or Nicotine? No Information not available 09/11/2023 Sex: Unknown Functional Status None recorded. Mental Status None recorded. Family History Nothing Reported Notes:N/C Medical History No medical history recorded. Gynecological HistoryNo gynecological history recorded. Obstetrics History GPAL:G 0 P 0 0 0 0 Immunizations Vaccine Type Date Status Note Provider Nam e and Address Organization Details Recorded Time Influenza, adjuvanted, quadrivalent, PF 3 completed Julia bartlett, [facility] 09/18/2023 12:02:22 Influenza, adjuvanted, quadrivalent, PF 2 completed Julia bratlett, [facility] 09/18/2023 12:41:22 pneumococcal polysaccharide PPV23 3 [facility] 12:41:56 COVID-19, mRNA, LNP-S, bivalent, PF, 30 mcg/0.3 mL dose 3 [facility] 09/18/2023 13:00:38 Influenza, adjuvanted, trivalent, PF 0 completed Betty Horowitz null, [facility] 10/09/2020 10:36:00 Pneumococcal conjugate PCV 13 5 completed Betty Horowitz null, [facility] 10/09/2020 10:36:13 pneumococcal polysaccharide PPV23 8 completed [facility] 10/09/2020 10:36:23 Tdap 0 completed Betty Horowitz null, [facility] 10/09/2020 10:36:35 zoster recombinant 0 completed [facility]/09/2020 10:36:43 Past Encounters Encounter ID Performer Location Encounter Start Date Encounter Closed Date Diagnosis/Indication Diagnosis SNOMED-CT Code Diagnosis ICD10 Code Diagnosis Note [id number] PAT REARDON NP [facility] [address] [place] [address] 09/24/2024 13:00:47 09/26/2024 11:32:28 Recurrent falls 978143466 R29.6 Unwittness ed fall 09/22 resulting in left wrist painX ray + for fx.PT OT eval and txMonitor neuros, VS Closed fra cture of left wrist 1646808802 1640791 S62.92XA s/p fall 09/22 resulting in left wrist fracture and [facility], referred to OrthoHas appt. tomorrow with probable surgical interventi on thereafter .APAP prn painElevat e armMonitor CSMUpdate Ortho with concernsRe turned with order for Augmentin 875 mg bid x 10 days - unclear if for concern of abrasion infection vs. UTI or other etiology. Urinary tr act infectious disease 56009108 N39.0 ???Returne d with order for Augmentin 875 mg bid x 10 days, unclear as to why she is on thisMainta in fluidsFreeman [facility]opa[facility] [place] [id number] Edie Serna NP [facility] [address] [address] 09/25/2024 11:11:32 09/26/2024 12:18:48 Closed fracture of left wrist 6982420720 3914172 S62.92XA s/p fall 09/22 resulting in left wrist fracture and abrasion,[facility], Wrist splinted and ally wrapped, referred to Ortho surgery planned for 09/30npo at midnight on 09/29 pain controlled with minimal swelling to distal fingerscon tAPAP prn painElevat e armMonitor CSMUpdate Ortho with concernsRe turned with order for Augmentin 875 mg bid x 10 days - unclear if for concern of abrasion infection vs. UTI or other etiology. will continue Urinary tr act infectious disease 66556942 N39.0 on Augmentin 875 mg bid x 10 days, unclear as to why she is on this, [facility] [id number] Edie Serna NP [facility] [address] [address] 10/02/2024 11:16:50 10/02/2024 12:00:55 Closed fracture of left wrist 1618221077 5204822 S62.92XA s/p orif on left wrist started on oxycodone 5mg po q 6hours prn pain pain controlled with minimal swelling to distal fingerscon tAPAP prn painElevat e armMonitor [facility] Ortho with concerns [id number] Edie Serna NP [facility] [address] [address] 10/09/2024 13:52:28 10/10/2024 14:07:42 Closed fracture of left wrist 5877345762 9982612 S62.92XA s/p orif on left wrist contoxycod one 5mg po q 6hours prn painpain controlled with minimal swelling to distal fingers improvingc ontAPAP prn painElevat e armMonitor CSMUpdate Ortho with concerns Urinary tr act infectious disease 20143155 N39.0 on Augmentin 875 mg bid x 10 days, unclear as to why she is on this, ? uti, will continue from er, almost completedM aintain fluidsMoni tor Dementia 26699013 F02.B0 With sl. declinecon ttrazodone 25 mg po bid and q 12 hours prn agitationd uloxetine 20 mg qdContinue supportive care, expect continued decline.HC P invokedMon itor mood and behaviors. Psych consult prn. [id number] Louis Brownlee MD [address] [address] 10/12/2024 11:47:37 10/14/2024 14:08:41 Closed fracture of left wrist 4949305351 9388062 S62.92XA s/p surgical repairfoll ow ortho recs and update with concernsmo nitor site Urinary tr act infectious disease 88431127 N30.00 completed course of abxmonitor for recurrent infection Dementia 75935296 F02.B0 baseline dementiaco ntinue supportive careHCP invokedmon itor for behaviorsp sych eval prn Essential hypertension 52714617 I10 lisinopril 10 mg qdmonitor bp and need to titrate medication Health Concerns Section Related Observation LastModified by Organization Detai ls LastModified Time None Recorded Concern Status LastModified by Organization Details LastModified Time None Recorded Payers Encounter Date Sequence Insurance Name Policy Number Policy Rubio Covered Member ID Rubio Member ID Guarantor Name 10/12/2024 1 [place] [facility] [facility] Teena Gonzalez [id number] Teena Gonzalez 10/12/2024 2 [place] [facility] Teena Gonzalez [id number] Teena Gonzalez Notes Date Note Type Note Provider Name and Address Organization Details Recorded Time 10/12/2024 text/html Patient is an 84 yo female resident seen for MD visit also with recent wrist fracture left, now s/p surgical repair. Baseline dementia, sitting in Broda chair in NAD. Patient non-compliant with prior attempts at sling Louis Brownlee MD [address] [place] [address], [address], [place], [address], [facility] - [facility] 10/12/2024 11:53:11 OBGyn Episode No OBEpisode recorded.
--- OUTSIDE RECORDS SUMMARY | 2024-10-16 16:37 | XMS_ITS | Encounter Summary ---
Author Organization [facility] Address [address] [place] [address] Care Team Providers Care Forward Air Controller/Air Officer Name Role Phone Louis Brownlee MD Primary Care Provider [phone] Encounter Details Date Type Department Care Team (Latest Contact Info) Description 07/27/2024 Lab Requisition [facility] - Main Lab [address] [place] [address] Louis Brownlee MD [address] [place] [address] [address], [address] Atherosclerotic heart disease of [place] coronary artery without angina pectoris; Anemia, unspecified [...] 4:47 AM EST Atherosclerotic heart disease of [place] coronary artery without angina pectoris Anemia, unspecified documented in this encounter Results * (ABNORMAL) Complete blood count (07/29/2024 4:47 AM EST) WBC 11.4(H) 4.8 - 10.8 K/mcL LAB HEMETOLOGY METHOD 07/29/2024 9:28 AM EST [facility] RBC 3.20(L) 3.80 - 4.80 M/mcL LAB HEMETOLOGY METHOD 07/29/2024 9:28 AM EST [facility] Hemoglobin 9.4(L) 11.5 - 16.0 g/dL LAB HEMETOLOGY METHOD 07/29/2024 9:28 AM [facility] Hematocrit 31.1(L) 35.0 - 47.0 % LAB HEMETOLOGY METHOD 07/29/2024 9:28 AM [facility] MCV 96.9 79.0 - 98.0 FL LAB HEMETOLOGY METHOD 07/29/2024 9:28 AM EST [facility] MCH 29.3 27.0 - 32.0 pcg LAB HEMETOLOGY METHOD 07/29/2024 9:28 AM [facility] MCHC 30.2(L) 32.0 - 37.0 g/dL LAB HEMETOLOGY METHOD 07/29/2024 9:28 AM [facility] RDW 12.9 11.0 - 15.0 % LAB HEMETOLOGY METHOD 07/29/2024 9:28 AM [facility] Platelets 260 130 - 400 K/mcL LAB HEMETOLOGY METHOD 07/29/2024 9:28 AM [facility] MPV 10.4 7.0 - 11.0 FL LAB HEMETOLOGY METHOD 07/29/2024 9:28 AM [facility] NRBC 0.0 <1.0 % LAB HEMETOLOGY METHOD 07/29/2024 9:28 AM EST [facility] NRBC Absolute 0.00 <0.10 K/mcL LAB HEMETOLOGY METHOD 07/29/2024 9:28 AM [facility] Blood Venous blood specimen / Unknown Venipuncture / Unknown 07/29/2024 4:47 AM EST 07/29/2024 8:28 AM EST us Louis Brownlee MD LAB BLOOD ORDERABLES Final Resul t [facility] [address] [place], [place] [address] [phone] documented in this encounter Visit Diagnoses Diagnosis Atherosclerotic heart disease of [place] coronary artery without angina pectoris Anemia, unspecified documented in this encounter Care Teams Forward Air Controller/Air Officer Relationship Specialty Start Date End Date Louis Brownlee MD [address] [place] [address], [address] PCP - General Family Medicine 07/04/24 documented as of this encounter
--- OUTSIDE RECORDS SUMMARY | 2024-10-16 16:37 | XMS_ITS | Encounter Summary ---
Author Organization [facility] Address [address] [place] [address] Care Team Providers Care Clinical Nurse Reviewer Name Role Phone Louis Brownlee MD Primary Care Provider [phone] Encounter Details Date Type Department Care Team (Late st Contact Info) Description 07/16/2024 Lab Requisition [facility] - Main Lab [address] [place] [address] Louis Brownlee MD [address] [place] [address] [address] [place], [address] Essential (primary) hypertension Social History Tobacco [...] LAB CHEMISTRY METHOD 07/17/2024 11:42 AM EST [facility] Potassium 4.3 3.5 - 5.5 mmol/L LAB CHEMISTRY METHOD 07/17/2024 11:42 AM EST [facility] Chloride 104 96 - 110 mmol/L LAB CHEMISTRY METHOD 07/17/2024 11:[address] [facility] CO2 31 21 - 32 mmol/L LAB CHEMISTRY METHOD 07/17/2024 11:[address] [facility] Anion Gap 4 3 - 11 LAB CHEMISTRY METHOD 07/17/2024 11:[address] [facility] Glucose 82 70 - 100 mg/dL LAB CHEMISTRY METHOD 07/17/2024 11:[address] [facility] BUN 20 5 - 25 mg/dL LAB CHEMISTRY METHOD 07/17/2024 11:[address] [facility] Creatinine 0.82 0.50 - 1.10 mg/dL LAB CHEMISTRY METHOD 07/17/2024 11:[address] [facility] eGFR 70 >=60 mL/min/1. 73m2 LAB CHEMISTRY METHOD 07/17/2024 11:[address] [facility] Comment:Calculation based on the??Chronic Kidney Disease Epidemiology Collaboration (CKD-EPI) equation refit??without adjustment for race. BUN/Creatinine Ratio 24.4 LAB CHEMISTRY METHOD 07/17/2024 11:[address] [facility] Calcium 8.9 8.5 - 10.5 mg/dL LAB CHEMISTRY METHOD 07/17/2024 11:[address] [facility] AST (SGOT) 16 10 - 42 unit/L LAB CHEMISTRY METHOD 07/17/2024 11:[address] [facility] ALT (SGPT) 11 10 - 60 unit/L LAB CHEMISTRY METHOD 07/17/2024 11:[address] [facility] Alkaline Phosphatase 83 42 - 121 unit/L LAB CHEMISTRY METHOD 07/17/2024 11:[address] [facility] Total Protein 6.5 6.0 - 8.0 g/dL LAB CHEMISTRY METHOD 07/17/2024 11:[address] [facility] Albumin 3.3 3.2 - 5.0 g/dL LAB CHEMISTRY METHOD 07/17/2024 11:[address] [facility] Total Bilirubin 0.3 0.0 - 1.4 mg/dL LAB CHEMISTRY METHOD 07/17/2024 11:[address] [facility] Blood Venous blood specimen / Unknown Venipuncture / Unknown 07/17/2024 7:35 AM EST 07/17/2024 10:21 AM EST us Louis Brownlee MD LAB BLOOD ORDERABLES Final Resul t [facility] [address] [place] [address], * (ABNORMAL) Complete blood count (07/17/2024 7:35 AM EST) WBC 14.3(H) 4.8 - 10.8 K/mcL LAB HEMETOLOGY METHOD 07/17/2024 10:[address] [facility] RBC 3.80 3.80 - 4.80 M/mcL LAB HEMETOLOGY METHOD 07/17/2024 10:[address] [facility] Hemoglobin 11.1(L) 11.5 - 16.0 g/dL LAB HEMETOLOGY METHOD 07/17/2024 10:[address] [facility] Hematocrit 36.2 35.0 - 47.0 % LAB HEMETOLOGY METHOD 07/17/2024 10:[address] [facility] MCV 96.0 79.0 - 98.0 FL LAB HEMETOLOGY METHOD 07/17/2024 10:[address] [facility] MCH 29.4 27.0 - 32.0 pcg LAB HEMETOLOGY METHOD 07/17/2024 10:[address] [facility] MCHC 30.7(L) 32.0 - 37.0 g/dL LAB HEMETOLOGY METHOD 07/17/2024 10:[address] [facility] RDW 12.2 11.0 - 15.0 % LAB HEMETOLOGY METHOD 07/17/2024 10:44 AM EST [facility] Platelets 419(H) 130 - 400 K/mcL LAB HEMETOLOGY METHOD 07/17/2024 10:44 AM EST [facility] MPV 10.2 7.0 - 11.0 FL LAB HEMETOLOGY METHOD 07/17/2024 10:44 AM EST [facility] NRBC 0.0 <1.0 % LAB HEMETOLOGY METHOD 07/17/2024 10:44 AM EST [facility] NRBC Absolute 0.00 <0.10 K/mcL LAB HEMETOLOGY METHOD 07/17/2024 10:[address] [facility] Blood Venous blood specimen / Unknown Venipuncture / Unknown 07/17/2024 7:35 AM EST 07/17/2024 10:09 AM EST us Louis Brownlee MD LAB BLOOD ORDERABLES Final Resul t [facility] [address] [place] [address], documented in this encounter Visit Diagnoses Diagnosis Essential (primary) hypertension Unspecified essential hypertension documented in this encounter Care Teams Clinical Nurse Reviewer Relationship Specialty Start Date End Date Louis Brownlee MD [address] [place] [phone] PCP - General Family Medicine 07/04/24 documented as of this encounter
--- OUTSIDE RECORDS SUMMARY | 2024-10-16 16:37 | XMS_ITS | Encounter Summary ---
Author Organization [email or web address] Address [address] [place] [address] Care Team Providers Care Scale Mechanic Name Role Phone Louis Brownlee MD Primary Care Provider [phone] Encounter Details Date Type Department Care Team (Late st Contact Info) Description 07/04/2024 Lab Requisition [facility] - Main Lab [address] [facility] [place] [address] Louis Brownlee MD [address] [facility] [address] [place], [address] Altered mental status, unspecified; Other buttermaker helper (current) drug therapy Social History Tobacco Use [...] PM EST Altered mental status, unspecified Other buttermaker helper (current) drug therapy URINALYSIS WITH REFLEX MICROSCOPIC AND CULTURE Routine 07/03/2024 3:00 PM EST Altered mental status, unspecified Other group home (current) drug therapy CULTURE URINE Routine 07/03/2024 3:00 PM EST Altered mental status, unspecified Other group home (current) drug therapy documented in this encounter Results * (ABNORMAL) Urinalysis with reflex microscopic and culture (07/03/2024 3:00 PM EST) Specific [place] Urine 1.023 1.003 - 1.030 LAB URINALYSIS - AUTOMATED METHOD 07/04/2024 10:47 AM [facility] pH, Urine 6.0 5.0 - 8.0 pH LAB URINALYSIS - AUTOMATED METHOD 07/04/2024 10:47 AM [facility] Leukocytes, Urine Large(A) Negative LAB URINALYSIS - AUTOMATED METHOD 07/04/2024 10:47 AM [facility] Nitrite, Urine Negative Negative LAB URINALYSIS - AUTOMATED METHOD 07/04/2024 10:47 AM [facility] Protein, Urine 30(A) <=Trace mg/dL LAB URINALYSIS - AUTOMATED METHOD 07/04/2024 10:47 AM [facility] Glucose, Urine Negative Negative mg/dL LAB URINALYSIS - AUTOMATED METHOD 07/04/2024 10:47 AM [facility] Ketones, Urine Trace(A) Negative mg/dL LAB URINALYSIS - AUTOMATED METHOD 07/04/2024 10:47 AM [facility] Urobilinogen , Urine 0.2 0.2 - 1.0 mg/dL LAB URINALYSIS - AUTOMATED METHOD 07/04/2024 10:47 AM [facility] Bilirubin, Urine Negative Negative LAB URINALYSIS - AUTOMATED METHOD 07/04/2024 10:47 AM [facility] Blood, Urine Trace(A) Negative LAB URINALYSIS - AUTOMATED METHOD 07/04/2024 10:47 AM [facility] RBC, Urine 6.9(H) 0 - 4 /HPF LAB URINALYSIS - AUTOMATED METHOD 07/04/2024 10:47 AM [facility] WBC, Urine 1,532.2(H) 0 - 4 /HPF LAB URINALYSIS - AUTOMATED METHOD 07/04/2024 10:47 AM [facility] Squamous Epithelial, Urine 34 0 - 60 /LPF LAB URINALYSIS - AUTOMATED METHOD 07/04/2024 10:47 AM [facility] Crystals, Urine Light Calcium Oxalate crystals. /LPF LAB URINALYSIS - AUTOMATED METHOD 07/04/2024 10:47 AM [facility] Bacteria, Urine Many(A) Negative /HPF LAB URINALYSIS - AUTOMATED METHOD 07/04/2024 10:47 AM [facility] Hyaline Casts, Urine 0.9 0 - 3 /LPF LAB URINALYSIS - AUTOMATED METHOD 07/04/2024 10:47 AM [facility] Urine Urine specimen obtained by clean catch procedure / Unknown Non-blood Collection / Unknown 07/03/2024 3:00 PM EST 07/04/2024 9:23 AM EST us Louis Brownlee MD LAB URINE ORDERABLES Final Resul t Performing Organization Address [facility] de Phone Number [facility] [address] [place] [address], [place] [phone] * (ABNORMAL) Culture urine (07/03/2024 3:00 PM EST) Culture, Urine >100,000 CFU/mL Aerococcus urinae(A) EMILY 07/06/2024 1:59 PM [facility] Comment: Susceptibility testing not [...] ORDER PATTI Final Result Performing Organization Address City/[facility]/ZIP Co de Phone Number [facility] [address] [place] [address], [place] [phone] documented in this encounter Visit Diagnoses Diagnosis Altered mental status, unspecified Other group home (current) drug therapy documented in this encounter Care Teams Scale Mechanic Relationship Specialty Start Date End Date Louis Brownlee MD [address] [place] [address], [phone] PCP - General Family Medicine 07/04/24 documented as of this encounter
--- OUTSIDE RECORDS SUMMARY | 2024-10-16 16:37 | XMS_ITS | Continuity of Care Document ---
Author Organization [facility], [facility] Address [address] [place] [address] Care Team Providers Care Train Inspector Name Role Phone JAMAAL FLORES Primary Care Provider [phone] [facility] - 3RD FLOOR OTHER Assessment No [...] Address Organization Details Recorded Time Orthostatic hypotension 22453226 Active 2020 Modesta bartlett [facility] 13:44:57 Fracture of humerus 56253230 Active 2020 Modesta bartlett [facility] 13:45:01 Insomnia 850241628 Active 2020 Modesta bartlett [facility] 13:46:18 Constipation 13054679 Active 2020 Modesta bartlett [facility] 13:46:26 Essential hypertension 71090433 Active 2020 Modesta bartlett [facility] 13:46:27 Coronary arteriosclero sis 38748123 Active 2020 Adelina Galarza MD [address], [address], [place], [address] , [facility] 19:45:42 Dementia 92756059 Active 2022 PAT REARDON NP [address], [address], [place], [address], [facility] 3 12:53:33 Hyperlipidemi a 42916227 Active 2022 PAT REARDON NP [address], [address], [place], [address], [facility] 3 12:53:44 Depressive disorder 00920374 Active 2022 PAT REARDON NP [address], [place], [address], [facility] 3 12:53:57 Osteoarthriti s 825713431 Active 2022 [email or web address] right knee PAT REARDON NP [address], [address], [place], [address], [facility] 3 12:54:14 Hearing loss 92432488 Active 2022 PAT REARDON NP [address], [address], [place], [address], [facility] 3 12:54:24 History of migraine 772347776 Active 2022 PAT REARDON NP [address], [address], [place], [address], [facility] 3 12:57:42 Seasonal allergic rhinitis 789295260 Active 2022 PAT REARDON NP [address], [address], [place], [address], [facility] 3 12:57:51 Anemia 986052501 Active 2022 PAT REARDON NP [address], [address], [place], [address], [facility] 3 15:35:43 Falls 340392525 Active 2022 Edie Serna NP [address], [address], [place], [address], [facility] 3 15:07:17 Abrasion 871506887 Active 2022 Edie Serna NP [address], [address], [place], [address], [facility] 3 15:07:26 Pain in left arm 224687877 Active 2022 Edie Serna NP [address], [address], [place], [address], [facility] 3 15:08:01 Generalized headache 424408383 Active 2022 PAT REARDON NP [address], [address], [place], [address], [facility] 3 11:52:55 Acute COVID-19 8814398120 Active 2023 Adelina Galarza MD [address], [address], [place], [address], [facility] 4 18:51:00 Adult failure to thrive syndrome 971038713 Active 2023 Adelina Galarza MD [address], [address], [place], [address], [facility] 4 18:51:38 Problem Notes None recorded. Medical Equipment None Reported. Allergies Allergen ID Allergen Name Allergen Category Reaction Reaction Severity Criticality Documentation Date Start Date Code Code System Note Provider Name and Address Organization Details Recorded Time aspirin medicatio n Not available Not available Not available 09/08/2020 1191 RxNorm Not Available Not Available Not Available 03477 Substance with sulfonami de structure and antibacte rial mechanism of action (substanc e) medicatio n Not available Not available Not available 09/08/2020 04363 8003 SNOMED Not Available Not Available Not Available Medications Not known to be on any medication Vitals Date Recorded Body height Body weight Heart rate Respiratory rate Body temperature Oxygen saturation Oxygen saturation in Arterial blood by Pulse oximetry Systolic blood pressure Diastolic blood pressure Provider Name and Address Organization Details Last Updated DateTime 5 162.56 cm 05718.3 5 g 80 /min 18 /min 97.9 [degF] 97 % 97 % 143 mm[Hg] 65 mm[Hg] Edie Serna NP [address], [address], [place], [address], [facility] 11:17:23 Social History Question Answer Notes LastModified by Organizat ion Details LastModified Time Tobacco Smoking Status Former Smoker Has quit on and off since 1996, quit for good 2019. Smoked a ppd since age 13 PAT REARDON NP [address], [address], [place], [address], [facility] 12/08/2022 12:55:26 Do You Have An Advance Directive? Yes [email or web address] Information not available 12/08/2022 What Is Your Level Of Alcohol Consumption? None [email or web address] Information not available 09/08/2020 What Is Your Code Status? DNR/DNI DNH, No G Tube, No Dialysis Information not available 12/08/2022 Do You Or Have You Ever Used E-cigarettes Or Vape? Never Used Electronic Cigarettes Information not available 09/11/2020 [facility]? [facility] Information not available 09/11/2023 Legal Guardian? No Informati on not available 09/11/2023 Do You Have A Medical Power Of Presentation Team Member? Yes Has HCP, Invoke Upon Admission [email or web address] Information not available 12/08/2022 What Was The Date Of Your Most Recent Tobacco Screening? 12/08/2022 [email or web address] Information not available 12/08/2022 Do You Have An Out Of Hospital DNR? Yes Information not available 09/11/2023 What Is Your Relationship Status? Information not available 09/11/2023 Do You Or Have You Ever Used Smokeless Tobacco? Never Used Smokeless Tobacco Information not available 09/11/2020 Do You Use Any Illicit Or Recreational Drugs? No [email or web address] Information not available 12/08/2022 Has Tobacco Cessation Counseling Been Provided? No Information not available 12/08/2022 How Many Years [...] adjuvanted, quadrivalent, PF 3 completed Julia bartlett, [facility] 09/18/2023 12:02:22 Influenza, adjuvanted, quadrivalent, PF 2 completed Julia bartlett, [facility] 09/18/2023 12:41:22 pneumococcal polysaccharide PPV23 3 [facility]2023 12:41:56 COVID-19, mRNA, LNP-S, bivalent, PF, 30 mcg/0.3 mL dose 3 completed Julia bartlett, [facility] 09/18/2023 13:00:38 Influenza, adjuvanted, trivalent, PF 0 completed Betty Carlos Manuel [facility], [facility] 10/09/2020 10:36:00 Pneumococcal conjugate PCV 13 5 [facility] 10:36:13 pneumococcal polysaccharide PPV23 8 [facility] 10:36:23 Tdap 0 completed Betty Horowitz [facility] 10/09/2020 10:36:35 zoster recombinant 0 completed Betty Horowitz [facility] 10/09/2020 10:36:43 Past Encounters Encounter ID Performer Location Encounter Start Date Encounter Closed Date Diagnosis/Indication Diagnosis SNOMED-CT Code Diagnosis ICD10 Code Diagnosis Note [id number] PAT REARDON NP [address] [address] 09/24/2024 13:00:47 09/26/2024 11:32:28 Recurrent falls 632583754 R29.6 Unwittness ed fall 09/22 resulting in left wrist painX ray + for fx.PT OT eval and txMonitor neuros, VS Closed fra cture of left wrist 3822280894 1829015 S62.92XA s/p fall 09/22 resulting in left wrist fracture and [facility], referred to OrthoHas appt. tomorrow with probable surgical interventi on thereafter .APAP prn painElevat e armMonitor CSMUpdate Ortho with concernsRe turned with order for Augmentin 875 mg bid x 10 days - unclear if for concern of abrasion infection vs. UTI or other etiology. Urinary tr act infectious disease 99715258 N39.0 ???Returne d with order for Augmentin 875 mg bid x 10 days, unclear as to why she is on thisMainta in fluidsMoni tor [id number] Edie Serna NP [facility] [address] 09/25/2024 11:11:32 09/26/2024 12:18:48 Closed fracture of left wrist 8926559811 4768162 S62.92XA s/p fall 09/22 resulting in left wrist fracture and abrasion,[facility] [place] [facility], Wrist splinted and ally wrapped, referred to Ortho surgery planned for 3/3npo at midnight on 09/29 pain controlled with minimal swelling to distal fingerscon tAPAP prn painElevat e armMonitor CSMUpdate Ortho with concernsRe turned with order for Augmentin 875 mg bid x 10 days - unclear if for concern of abrasion infection vs. UTI or other etiology. will continue Urinary tr act infectious disease 67808158 N39.0 on Augmentin 875 mg bid x 10 days, unclear as to why she is on this, will continue from erMaintain fluidsMoni tor [id number] Edie Serna NP [address] [address] 10/02/2024 11:16:50 10/02/2024 12:00:55 Closed fracture of left wrist 5927863035 0584141 S62.92XA s/p orif on left wrist started on oxycodone 5mg po q 6hours prn pain pain controlled with minimal swelling to distal fingerscon tAPAP prn painElevat e armMonitor CSM[facility] Ortho with concerns Health Concerns Section Related Observation LastModified by Organization Detai ls LastModified Time None Recorded Concern Status LastModified by Organization Details LastModified Time None Recorded Payers Encounter Date Sequence Insurance Name Policy Number Policy Rubio Covered Member ID Rubio Member ID Guarantor Name 10/02/2024 1 [place] [employer] Teena Gonzalez [id number] Teena Gonzalez 10/02/2024 2 [place] [facility] Teena Gonzalez [id number] Teena Gonzalez Notes Date Note Type Note Provider Name and Address Organization Details Recorded Time 10/02/2024 text/html Pt is seen today for an acute visit. Teena returned from left distal radium fx orif on 09/30 after an initial fall on 09/22. On exam today, Teena is sitting in a w/c in the activity room in [facility]. She denies any pain to the left wrist Since back her left wrist is wrapped in ally and wrap. She is to elevate left wrist on 3 pillows and fu in one week. She has oxycodone 5mg po q 6hours prn pain. Positive cms to distal fingers and milid swelling. ARm elevated on 3 pillows. Edie Serna, TREVON [address], [address], [place], [address], [facility] 10/02/2024 11:28:01 OBGyn Episode No OBEpisode recorded.
--- OUTSIDE RECORDS SUMMARY | 2024-10-16 16:37 | XMS_ITS ---
Author Organization [facility] on Care Team Providers Care Castings Drafter Name Role Phone Modesta Bower Unavailable Unavailable Shivani Beltran Unavailable Unavailable Louis Brownlee Unavailable Unavailable Michell, Adelina Unavailable Unavailable Carter, Meaghan Unavailable Unavailable Bryn, Gilda Unavailable Unavailable Allergies and adverse reactions Code CodeSystem Substance Reaction Severity StartDate Concern Status 229384810 SNOMED CT Sulfa Antibiotics Unknown 09/07/2020 active Care Team Name Role Address Phone Organization Dates Louis Brownlee PCP [address] [place] [address], [address], [place] (Office): : [facility] 09/07/2020 - 09/25/2020 Modesta Bower Attending Physician [address] [place] [address], [place] (Office): [facility] 09/07/2020 - 09/25/2020 Shivani Beltran Attending Physician [address] [place] [address], [address], [place] (Office): [facility] 09/07/2020 - 09/25/2020 Adelina Galarza Attending Physician [address] [place] [address], [address], [place] (Office): : [facility] 09/07/2020 - 09/25/2020 Meaghan Machado Attending Physician [address], [address], [place] (Office): : [facility] 09/07/2020 - 09/25/2020 Gilda Clemente Attending Physician [address] [place] [address] [address], [place], [address], [place] (Office): : [facility] 09/07/2020 - 09/25/2020 Immunizations Immunization Status Vaccine Details Vaccine Code CodeSystem Date Notes TB 2 Step Mantoux Skin Test completed tuberculin skin test; unspecified formulation lotNumber: [id number] expiry: 09/02/2022 Mfg: Sanolfi[employer]Pasteur Given 0.1 ml Left Forearm intradermally Step 1 of Multi-step 98 CVX created date: 09/15/2020 consent date: 09/15/2020 administer ed date: 09/15/2020 This is step 2 TB 2 Step Mantoux Skin Test completed tuberculin skin test; unspecified formulation lotNumber: [id number] expiry: 04/18/2022 Mfg: sanofi Pasteur Given 0.1 ml Left Forearm intradermally Step 1 of Multi-step 98 CVX created date: 09/09/2020 consent date: 09/08/2020 administer ed date: 09/08/2020 Educated by luis eduardo on 09/08/2020 Step 2 completed 09/15/20 Mental Status Section Date Assessment Total Score Description 09/25/2020 BIMS 13 cognitively int act CAM 0 No delirium ind icated PHQ-9 00 09/14/2020 BIMS 15 cognitively int act CAM 0 No delirium ind icated PHQ-9 01 minimal depress ion Problems Problem # Description Date of onset Resolved Date Code CodeSystem Concern Status 1 ENCOUNTER FOR OTHER ORTHOPEDIC AFTERCARE 09/07/[address] active 2 ESSENTIAL (PRIMARY) HYPERTENSION 09/07/[address] active 3 INSOMNIA, UNSPECIFIED 09/07/[address] active 4 ORTHOSTATIC HYPOTENSION 09/07/[address] active 5 OTHER FRACTURE OF SHAFT OF RIGHT HUMERUS, SUBSEQUENT ENCOUNTER FOR FRACTURE WITH ROUTINE HEALING 09/07/[address] active Reason for Referral No Reasons for Referral Entered Social History Social History Observation Description Start Date End Date Code Code System Current Smoking Status Tobacco smoking consumption unknown 882692590 SNOMED CT Sex Assigned At Female 1940 [address]7 [facility] Vital Signs Code Code System Vitals Name Values and Units Timing Information 9279-1 [facility] Respiratory Rate Value=20.0 Units=/m in 09/25/2020 8462-4 [facility] Blood Pressure-Diastolic Value=68 Un its=mmHg 09/25/2020 8480-6 [facility] Blood Pressure-Systolic Eywdm=449 Un its=mmHg 09/25/2020 8310-5 [facility] Body Temperature Value=97.2 Units=?? F 09/25/2020 8867-4 [facility] Heart rate Value=92.0 Units=/min 15538-8 [facility] O2 % BldC Oximetry Value=96.0 Units= % 09/25/2020 15856-4 [facility] Pain Level Value=0.0 09/25/2020 97719-0 [facility] Weight Kfmnq=860.0 Units=Lbs 8302-2 [facility] Height Value=64.0 Units=Inches 09/07/2020
--- OUTSIDE RECORDS SUMMARY | 2024-10-16 16:37 | XMS_ITS | Continuity of Care Document ---
Author Organization [facility] Address [address] [place] [address] Care Team Providers Care Orthopedic Podiatrist Name Role Phone JAMAAL FLORES Primary Care Provider [phone] [facility] - 3RD FLOOR OTHER Assessment No [...] Address Organization Details Recorded Time Orthostatic hypotension 16889848 Active 2020 Modesta bartlett [facility] 13:44:57 Fracture of humerus 09944039 Active 2020 Modesta bartlett [facility] 13:45:01 Insomnia 437831617 Active 2020 Modesta bartlett [facility] 13:46:18 Constipation 30119011 Active 2020 Modesta bartlett [facility] 13:46:26 Essential hypertension 73015349 Active 2020 Modesta bartlett [facility] 13:46:27 Coronary arteriosclero sis 52990000 Active 2020 Adelina Galarza MD [address], [address], [place], [address] , [facility] [address] 19:45:42 Dementia 07750669 Active 2022 PAT REARDON NP [address], [address], [place], [address], [facility] [employer] [facility] 3 12:53:33 Hyperlipidemi a 33365595 Active 2022 PAT REARDON NP [address], [address], [place], [address], [facility] [employer] [facility] 3 12:53:44 Depressive disorder 08620270 Active 2022 PAT REARDON NP [address], [address], [place], [address], [facility] [employer] [facility] 3 12:53:57 Osteoarthriti s 733237111 Active 2022 cheryle. right knee PAT REARDON NP [address], [address], [place], [address], [facility] [employer] [facility] 3 12:54:14 Hearing loss 53664264 Active 2022 PAT REARODN NP [address], [address], [place], [address], [facility] 3 12:54:24 History of migraine 407211643 Active 2022 PAT REARDON NP [address], [address], [place], [address], [facility] [employer] [facility] 3 12:57:42 Seasonal allergic rhinitis 674871943 Active 2022 PAT REARDON NP [address], [address], [place], [address], [facility] [employer] [facility] 3 12:57:51 Anemia 255554966 Active 2022 PAT REARDON NP [address], [address], [place], [address], [facility] [employer] [facility] 3 15:35:43 Falls 801558887 Active 2022 Edie Serna NP [address], [address], [place], [address], [facility] 3 15:07:17 Abrasion 360844257 Active 2022 Edie Serna NP [address], [address], [place], [address], [facility] 3 15:07:26 Pain in left arm 531878406 Active 2022 Edie Serna NP [address], [address], [place], [address], [facility] 3 15:08:01 Generalized headache 143732653 Active 2022 PAT REARDON NP [address], [address], [place], [address], [facility] 3 11:52:55 Acute COVID-19 4481320020 Active 2023 Adelina Galarza MD [address], [address], [place], [address], [facility] 4 18:51:00 Adult failure to thrive syndrome 306371287 Active 2023 Adelina Galarza MD [address], [address], [place], [address], [facility] 4 18:51:38 Problem Notes None recorded. [...] Not available Not available Not available 09/08/2020 [id number] SNOMED Not Available Not Available Not Available Medications Not known to be on any medication Vitals Date Recorded Body height Body mass index (BMI) Body weight Heart rate Respiratory rate Body temperature Oxygen saturation Oxygen saturation in Arterial blood by Pulse oximetry Systolic blood pressure Diastolic blood pressure Provider Name and Address Organization Details Last Updated DateTime 5 162.56 cm 19.2 kg/m2 43681.3 5 g 74 /min 18 /min 97 [degF] 97 % 97 % 122 mm[Hg] 68 mm[Hg] Edie Serna NP [address], [address], [place], [address], [facility] 11:13:01 Social History Question Answer Notes LastModified by Organizat ion Details LastModified Time Tobacco Smoking Status Former Smoker Has quit on and off since 1996, quit for good 2019. Smoked a ppd since age 13 PAT REARDON NP [address], [address], [place], [address], [facility] 12/08/2022 12:55:26 Do You Have An [...] not available 09/11/2020 Where Do You Live? [facility] Information not available 09/11/2023 Legal Guardian? No Informati on not available 09/11/2023 Do You Have A Medical Power Of Line Erector? Yes Has HCP, Invoke Upon Admission [email or web address] Information not available 12/08/2022 What Was The Date Of Your Most Recent Tobacco Screening? 12/08/2022 [email or web address] Information not available 12/08/2022 Do You Have An Out Of Hospital DNR? Yes Information not available 09/11/2023 What Is Your Relationship Status? Information not available 09/11/2023 Do You Or Have You Ever Used Smokeless Tobacco? Never Used Smokeless Tobacco Information not available 09/11/2020 Do You Use Any Illicit Or Recreational Drugs? No [email or web address] Information not available 12/08/2022 Has Tobacco Cessation Counseling Been Provided? No [email or web address] Information not available 12/08/2022 How Many Years [...] Immunizations Vaccine Type Date Status Note Provider Madhav e and Address Organization Details Recorded Time Influenza, adjuvanted, quadrivalent, PF 3 completed Julia bartlett, [facility] 09/18/2023 12:02:22 Influenza, adjuvanted, quadrivalent, PF 2 completed Julia bartlett, [facility] 09/18/2023 12:41:22 pneumococcal polysaccharide PPV23 3 [facility] 12:41:56 COVID-19, mRNA, LNP-S, bivalent, PF, 30 mcg/0.3 mL dose 3 [facility]/2023 13:00:38 Influenza, adjuvanted, trivalent, PF 0 completed [place], [facility] 10/09/2020 10:36:00 Pneumococcal conjugate PCV 13 5 completed [facility] 10/09/2020 10:36:13 pneumococcal polysaccharide PPV23 8 completed [facility] 10/09/2020 10:36:23 [facility]dap 0 [facility] 10:36:35 zoster recombinant 0 [facility] 10:36:43 Past Encounters Encounter ID Performer Location Encounter Start Date Encounter Closed Date Diagnosis/Indication Diagnosis SNOMED-CT Code Diagnosis ICD10 Code Diagnosis Note [id number] Edie Serna NP [address] [address] 08/29/2024 08:07:46 08/30/2024 11:08:23 Urinary tract infectious disease 58545752 N39.0 exit seeking remains with slightly decreased agitationo n 07/05 started on augmentin 875/125mg po bid x 10days with probiotico n 07/11 clinically improving on abx, no s/swbc resolvingm onitor for changesnot e: she often refuses labs Dementia 86717383 F02.B0 With sl. declinecon ttrazodone 25 mg po bid and q 12 hours prn agitationd uloxetine 20 mg qdContinue supportive care, expect continued decline.HC P invokedMon itor mood and behaviors. Psych consult prn. 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 Hearing loss 14203593 H9 0.0 Hearing aids were lost.08/29 audiology referral for severe hearing lossneed to speak loudly into right ear or write things down to communicat e Excessive cerumen in ear canal 279152836 H61.23 pt with large amount of cerumen to bilateral earsdebrox 4 gtts tid to both ears, flush day 6monitor [id number] PAT REARDON NP [address] [address] 09/24/2024 13:00:47 09/26/2024 11:32:28 Recurrent falls 766013685 R29.6 Unwittness ed fall 09/22 resulting in left wrist painX ray + for fx.PT OT eval and txMonitor neuros, VS Closed fra cture of left wrist 2212958539 8908361 S62.92XA s/p fall 09/22 resulting in left wrist fracture and abrasionSe en at [facility] ERWrist splinted, referred to OrthoHas appt. tomorrow with probable surgical interventi on thereafter .APAP prn painElevat e armMonitor CSMUpdate Ortho with concernsRe turned with order for Augmentin 875 mg bid x 10 days - unclear if for concern of abrasion infection vs. UTI or other etiology. Urinary tr act infectious disease 69555087 N39.0 ???Returne d with order for Augmentin 875 mg bid x 10 days, unclear as to why she is on thisMainta [facility]Cap[id number] Edie Serna NP [address] [address] 09/25/2024 11:11:32 09/26/2024 12:18:48 Closed fracture of left wrist 4077954765 6291781 S62.92XA s/p fall 09/22 resulting in left wrist fracture and abrasion,s een at [facility] [place], Wrist splinted and ally wrapped, referred [...] will continue Urinary tr act infectious disease 35289243 N39.0 on Augmentin 875 mg bid x 10 days, unclear as to why she is on this, will continue from [facility] Concerns Section Related Observation LastModified by Organization Detai ls LastModified Time None Recorded Concern Status LastModified by Organization Details LastModified Time None Recorded Payers Encounter Date Sequence Insurance Name Policy Number Policy Rubio Covered Member ID Rubio Member ID Guarantor Name 09/25/2024 1 [place]: [employer] Teena Gonzalez [id number] Teena Gonzalez 09/25/2024 2 [place] [facility] Teena Gonzalez [id number] Teena Gonzalez Notes Date Note Type Note Provider Name and Address Organization Details Recorded Time 09/25/2024 text/html Pt is seen today for an acute visit. Teena sustained a fall on 09/22, with resulting left wrist pain. An X ray obtained, positive for fracture, sent to [facility] for eval and tx. She was seen in ER, splint placed, referral made to Ortho for outpt. eval. Since then she followed with ortho for the left wrist pain today on 09/25/24. Plan is for surgery on 09/30/24 for Left distal radius fx orif. She will need to be NPO midnight on Monday09/29/24. She is not on any blood thinners. On exam today, Teena is sitting in the activity [facility]. She denies any pain to the left wrist and it is wrapped in splint with ally. Positive cms to distal fingers. of note: she was started on Augmentin started 875 mg bid x 10 days while in the Er, unclear as to why. No urine report seen, ? related to abrasion. Edie Serna, TREVON [address], [address], [place], [address], [facility] 09/25/2024 12:05:40 OBGyn Episode No OBEpisode recorded.
--- OUTSIDE RECORDS SUMMARY | 2024-10-16 16:37 | XMS_ITS | Encounter Summary ---
Author Organization [facility] Address [address] [place] [address] Care Team Providers Care Priming Mixture Carrier Name Role Phone Louis Brownlee MD Primary Care Provider [phone] Encounter Details Date Type Department Care Team (Late st Contact Info) Description 07/09/2024 Lab Requisition [facility] - Main Lab [address] [place] [address] Louis Brownlee MD [address] [place] [address] [address] [place], [address] Essential (primary) hypertension Social History Tobacco [...] mmol/L LAB CHEMISTRY METHOD 07/10/2024 12:28 PM [facility] CO2 25 21 - 32 mmol/L LAB CHEMISTRY METHOD 07/10/2024 12:28 PM [facility] Anion Gap 7 3 - 11 LAB CHEMISTRY METHOD 07/10/2024 12:28 PM [facility] Glucose 81 70 - 100 mg/dL LAB CHEMISTRY METHOD 07/10/2024 12:28 PM [facility] BUN 41(H) 5 - 25 mg/dL LAB CHEMISTRY METHOD 07/10/2024 12:28 PM [facility] Creatinine 1.09 0.50 - 1.10 mg/dL LAB CHEMISTRY METHOD 07/10/2024 12:28 PM [facility] eGFR 50(L) >=60 mL/min/1. 73m2 LAB CHEMISTRY METHOD 07/10/2024 12:28 PM [facility] LAB Comment:Calculation based on the??Chronic Kidney Disease Epidemiology Collaboration (CKD-EPI) equation refit??without adjustment for race. BUN/Creatinine Ratio 37.6 LAB CHEMISTRY METHOD 07/10/2024 12:28 PM [facility] Calcium 9.0 8.5 - 10.5 mg/dL LAB CHEMISTRY METHOD 07/10/2024 12:28 PM [facility] Blood Venous blood specimen / Unknown Venipuncture / Unknown 07/10/2024 7:02 AM EST 07/10/2024 11:40 AM EST us Louis Brownlee MD LAB BLOOD ORDERABLES Final Resul t [facility] [address] [place] [address], * (ABNORMAL) Complete blood count (07/10/2024 7:02 AM EST) WBC 14.8(H) 4.8 - 10.8 K/mcL LAB HEMETOLOGY METHOD 07/10/2024 12:20 PM [facility] RBC 3.60(L) 3.80 - 4.80 M/mcL LAB HEMETOLOGY METHOD 07/10/2024 12:20 PM [facility] Hemoglobin 10.7(L) 11.5 - 16.0 g/dL LAB HEMETOLOGY METHOD 07/10/2024 12:20 PM [facility] LAB Hematocrit 35.1 35.0 - 47.0 % LAB HEMETOLOGY METHOD 07/10/2024 12:20 PM [facility] MCV 98.0 79.0 - 98.0 FL LAB HEMETOLOGY METHOD 07/10/2024 12:20 PM [facility] MCH 29.9 27.0 - 32.0 pcg LAB HEMETOLOGY METHOD 07/10/2024 12:20 PM [facility] MCHC 30.5(L) 32.0 - 37.0 g/dL LAB HEMETOLOGY METHOD 07/10/2024 12:20 PM [facility] RDW 12.7 11.0 - 15.0 % LAB HEMETOLOGY METHOD 07/10/2024 12:20 PM [facility] Platelets 469(H) 130 - 400 K/mcL LAB HEMETOLOGY METHOD 07/10/2024 12:20 PM [facility] MPV 9.9 7.0 - 11.0 FL LAB HEMETOLOGY METHOD 07/10/2024 12:20 PM [facility] NRBC 0.0 <1.0 % LAB HEMETOLOGY METHOD 07/10/2024 12:20 PM [facility] NRBC Absolute 0.00 <0.10 K/mcL LAB HEMETOLOGY METHOD 07/10/2024 12:20 PM [facility] Blood Venous blood specimen / Unknown Venipuncture / Unknown 07/10/2024 7:02 AM EST 07/10/2024 11:40 AM EST us Louis Brownlee MD LAB BLOOD ORDERABLES Final Resul t [facility] [address] [place] [address], documented in this encounter Visit Diagnoses Diagnosis Essential (primary) hypertension Unspecified essential hypertension documented in this encounter Care Teams Priming Mixture Carrier Relationship Specialty Start Date End Date Louis Brownlee MD [address] [place] [address] [address], [phone] PCP - General Family Medicine 07/04/24 documented as of this encounter
--- OUTSIDE RECORDS SUMMARY | 2024-10-16 16:37 | XMS_ITS | Clinical Summary ---
Author Organization [address] [facility] Address [address] [place] [address] Phone Care Team Providers Care Insurance Sales Professional Name Role Phone Louis Brownlee MD Primary Care Provider [phone] Encounters Date Type Department Care Team Description 07/27/2024 Lab Requisition [facility] - Main Lab [address] [place] [address] Louis Brownlee MD Atherosclerotic heart disease of jena coronary artery without angina pectoris; Anemia, unspecified from Last 3 Months Social History Tobacco [...] 07/17/2024 7:35 AM EST Essential (primary) hypertension from Last 3 Months or Most Recently Relevant to Health Maintenance Results * (ABNORMAL) Complete blood count (07/29/2024 4:47 AM EST) WBC 11.4(H) 4.8 - 10.8 K/mcL LAB HEMETOLOGY METHOD 07/29/2024 9:28 AM [facility] RBC 3.20(L) 3.80 - 4.80 M/mcL LAB HEMETOLOGY METHOD 07/29/2024 9:28 AM [facility] LAB Hemoglobin 9.4(L) 11.5 - 16.0 g/dL LAB HEMETOLOGY METHOD 07/29/2024 9:28 AM [facility] LAB Hematocrit 31.1(L) 35.0 - 47.0 % LAB HEMETOLOGY METHOD 07/29/2024 9:28 AM [facility] LAB MCV 96.9 79.0 - 98.0 FL LAB HEMETOLOGY METHOD 07/29/2024 9:28 AM EST [facility] LAB MCH 29.3 27.0 - 32.0 pcg LAB HEMETOLOGY METHOD 07/29/2024 9:28 AM EST [facility] LAB MCHC 30.2(L) 32.0 - 37.0 g/dL LAB HEMETOLOGY METHOD 07/29/2024 9:28 AM EST [facility] LAB RDW 12.9 11.0 - 15.0 % LAB HEMETOLOGY METHOD 07/29/2024 9:28 AM EST [facility] LAB Platelets 260 130 - 400 K/mcL LAB HEMETOLOGY METHOD 07/29/2024 9:28 AM EST [facility] LAB MPV 10.4 7.0 - 11.0 FL LAB HEMETOLOGY METHOD 07/29/2024 9:28 AM EST [facility] LAB NRBC 0.0 <1.0 % LAB HEMETOLOGY METHOD 07/29/2024 9:28 AM EST [facility] LAB NRBC Absolute 0.00 <0.10 K/mcL LAB HEMETOLOGY METHOD 07/29/2024 9:28 AM EST [facility] LAB Blood Venous blood specimen / Unknown Venipuncture / Unknown 07/29/2024 4:47 AM EST 07/29/2024 8:28 AM EST us Louis Brownlee MD LAB BLOOD ORDERABLES Final Resul t [facility] [address] [place] [address], * Comprehensive metabolic panel (07/17/2024 7:35 AM EST) Sodium 139 133 - 145 mmol/L LAB CHEMISTRY METHOD 07/17/2024 11:42 AM EST [facility] Potassium 4.3 3.5 - 5.5 mmol/L LAB CHEMISTRY METHOD 07/17/2024 11:42 AM [facility] Chloride 104 96 - 110 mmol/L LAB CHEMISTRY METHOD 07/17/2024 11:42 AM [facility] CO2 31 21 - 32 mmol/L LAB CHEMISTRY METHOD 07/17/2024 11:42 AM [facility] Anion Gap 4 3 - 11 LAB CHEMISTRY METHOD 07/17/2024 11:42 AM [facility] Glucose 82 70 - 100 mg/dL LAB CHEMISTRY METHOD 07/17/2024 11:42 AM [facility] BUN 20 5 - 25 mg/dL LAB CHEMISTRY METHOD 07/17/2024 11:42 AM [facility] Creatinine 0.82 0.50 - 1.10 mg/dL LAB CHEMISTRY METHOD 07/17/2024 11:42 AM [facility] LAB eGFR 70 >=60 mL/min/1. 73m2 LAB CHEMISTRY METHOD 07/17/2024 11:42 AM [facility] LAB Comment:Calculation based on the??Chronic Kidney Disease Epidemiology Collaboration (CKD-EPI) equation refit??without adjustment for race. BUN/Creatinine Ratio 24.4 LAB CHEMISTRY METHOD 07/17/2024 11:42 AM [facility] Calcium 8.9 8.5 - 10.5 mg/dL LAB CHEMISTRY METHOD 07/17/2024 11:42 AM [facility] AST (SGOT) 16 10 - 42 unit/L LAB CHEMISTRY METHOD 07/17/2024 11:42 AM [facility] ALT (SGPT) 11 10 - 60 unit/L LAB CHEMISTRY METHOD 07/17/2024 11:42 AM [facility] Alkaline Phosphatase 83 42 - 121 unit/L LAB CHEMISTRY METHOD 07/17/2024 11:42 AM [facility] Total Protein 6.5 6.0 - 8.0 g/dL LAB CHEMISTRY METHOD 07/17/2024 11:42 AM [facility] Albumin 3.3 3.2 - 5.0 g/dL LAB CHEMISTRY METHOD 07/17/2024 11:42 AM EST [facility] LAB Total Bilirubin 0.3 0.0 - 1.4 mg/dL LAB CHEMISTRY METHOD 07/17/2024 11:42 AM EST [facility] LAB Blood Venous blood specimen / Unknown Venipuncture / Unknown 07/17/2024 7:35 AM EST 07/17/2024 10:21 AM EST us Louis Brownlee MD LAB BLOOD ORDERABLES Final Resul t [facility] [address] [place] [address], from Last 3 Months or Most Recently Relevant to Health Maintenance Insurance MEDICARE [place]ICAID - [place] Care Teams Insurance Sales Professional Relationship Specialty Start Date End Date Louis Brownlee MD [address] [place] [address], [phone] PCP - General Family Medicine 07/04/24
--- OUTSIDE RECORDS SUMMARY | 2024-10-16 16:37 | XMS_ITS | Data Portability ---
Author Organization [facility], Main Office Address [address] [facility], [address] [place] [address] Care Team Providers Care Window Display Designer Name Role Phone JAMAAL FLORES Primary Care Provider [facility] - 3RD FLOOR OTHER Assessment [...] Address Organization Details Recorded Time Orthostatic hypotension 75891492 Active 2020 Modesta bartlett, [facility] 13:44:57 Fracture of humerus 61888029 Active 2020 Modesta bartlett [facility] 13:45:01 Insomnia 934460746 Active 2020 Modesta bartlett [facility] 13:46:18 Constipation 23305339 Active 2020 Modesta bartlett [facility] 13:46:26 Essential hypertension 75597789 Active 2020 Modesta bartlett [facility] 13:46:27 Coronary arteriosclero sis 37057656 Active 2020 Adelina Galarza MD [address] [facility], [address], [place], [address] , Critical access hospital [facility] 19:45:42 Dementia 99361307 Active 2022 PAT REARDON NP [address], [address], [place], [address], [facility] 3 12:53:33 Hyperlipidemi a 71214287 Active 2022 PAT REARDON NP [address], [address], [place], [address], [facility] [employer] [facility] 3 12:53:44 Depressive disorder 26665862 Active 2022 PAT REARDON NP [address], [address], [place], [address], [facility] [employer] [facility] 3 12:53:57 Osteoarthriti s 738516270 Active 2022 cheryle. right knee PAT REARDON NP [address] [facility], [address], [place], [address], [facility] 3 12:54:14 Hearing loss 99292139 Active 2022 PAT REARDON NP [address] [facility], [address], [place], [address], [facility] [employer] [facility] 3 12:54:24 History of migraine 883076511 Active 2022 PAT REARDON NP [address] [facility], [address], [place], [address], [facility] [employer] [facility] 3 12:57:42 Seasonal allergic rhinitis 374691925 Active 2022 PAT REARDON NP [address] [facility], [address], [place], [address], [facility] [employer] [facility] 3 12:57:51 Anemia 610676840 Active 2022 PAT REARDON NP [address], [address], [place], [address], [facility] [employer] [facility] 3 15:35:43 Falls 750410743 Active 2022 Edie Serna NP [address], [address], [place], [address], [facility] 3 15:07:17 Abrasion 075708976 Active 2022 Edie Serna NP [address] [facility], [address], [place], [address], [facility] 3 15:07:26 Pain in left arm 988078447 Active 2022 Edie Serna NP [address] [facility], [address], [place], [address], [facility] 3 15:08:01 Generalized headache 515731890 Active 2022 PAT REARDON NP [address] [facility], [address], [place], [address], [facility] 3 11:52:55 Acute COVID-19 1813186705 Active 2023 Adelina Galarza MD [address] [facility], [address], [place], [address], [facility] 4 18:51:00 Adult failure to thrive syndrome 850305040 Active 2023 Adelina Galarza MD [address] [facility], [address], [place], [address], [facility] 4 18:51:38 Problem Notes None recorded. Medical Equipment None Reported. Allergies Allergen ID Allergen Name Allergen Category Reaction Reaction Severity Criticality Documentation Date Start Date Code Code System Note Provider Name and Address Organization Details Recorded Time 10588 aspirin medicatio n Not available Not available Not available 09/08/2020 1191 RxNorm Not Available Not Available Not Available 34801 Substance with sulfonami de structure and antibacte rial mechanism of action (substanc e) medicatio n Not available Not available Not available 09/08/2020 62439 8003 SNOMED Not Available Not Available Not Available Medications Not known to be on any medication Vitals Date Recorded Body height Heart rate Respiratory rate Body temperature Oxygen saturation Oxygen saturation in Arterial blood by Pulse oximetry Systolic blood pressure Diastolic blood pressure Provider Name and Address Organization Details Last Updated DateTime 5 162.56 cm 72 /min 16 /min 98 [degF] 93 % 93 % 122 mm[Hg] 68 mm[Hg] PAT REARDON NP [address] [facility], [address], [place], [address], [facility] 13:04:01 Date Recorded Body height Body mass index (BMI) Body weight Heart rate Respiratory rate Body temperature Oxygen saturation Oxygen saturation in Arterial blood by Pulse oximetry Systolic blood pressure Diastolic blood pressure Provider Name and Address Organization Details Last Updated DateTime 162.56 cm 19.2 kg/m2 55224.3 5 g 74 /min 18 /min 97 [degF] 97 % 97 % 122 mm[Hg] 68 mm[Hg] Edie Serna NP [address], [address], [place], [address], [employer] 5 11:13:01 Date Recorded Body height Body weight Heart rate Respiratory rate Body temperature Oxygen saturation Oxygen saturation in Arterial blood by Pulse oximetry Systolic blood pressure Diastolic blood pressure Provider Name and Address Organization Details Last Updated DateTime 162.56 cm 60767.3 5 g 80 /min 18 /min 97.9 [degF] 97 % 97 % 143 mm[Hg] 65 mm[Hg] Edie Serna NP [address], [address], [place], [address], [employer] 5 11:17:23 Date Recorded Body height Body weight Heart rate Respiratory rate Body temperature Oxygen saturation Oxygen saturation in Arterial blood by Pulse oximetry Systolic blood pressure Diastolic blood pressure Provider Name and Address Organization Details Last Updated DateTime 162.56 cm 78523.3 8 g 70 /min 18 /min 97.5 [degF] 97 % 97 % 143 mm[Hg] 65 mm[Hg] Edie Serna NP [address], [address], [place], [address], [employer] 5 15:26:39 Date Recorded Body height Systolic blood pressure Diastolic blood pressure Provider Name and Address Organization Details Last Updated DateTime 10/12/2024 162.56 cm 143 mm[Hg] 65 mm[Hg] Louis Brownlee MD [address], [address], [place], [address], [employer] 10/12/2024 11:48:13 Social History Question Answer Notes LastModified by Organizat ion Details LastModified Time Tobacco Smoking Status Former Smoker Has quit on and off since 1996, quit for good 2019. Smoked a ppd since age 13 PAT REARDON, TREVON [address] [facility], [address], [place], [address], [facility] 12/08/2022 12:55:26 Do You Have An Advance Directive? Yes [email or web address] Information not available 12/08/2022 What Is Your Level Of Alcohol Consumption? None [email or web address] Information not available 09/08/2020 What Is Your Code Status? DNR/DNI DNH, No G Tube, No Dialysis [email or web address] Information not available 12/08/2022 Do You Or Have You Ever Used E-cigarettes Or Vape? Never Used Electronic Cigarettes Information not available 09/11/2020 Where Do You Live? [facility] Information not available 09/11/2023 Legal Guardian? No Informati on not available 09/11/2023 Do You Have A Medical Power Of Shake Backboard Notcher? Yes Has HCP, Invoke Upon Admission [email or web address] Information not available 12/08/2022 What Was The Date Of Your Most Recent Tobacco Screening? 12/08/2022 [email or web address] Information not available 12/08/2022 Do You Have An Out Of Hospital DNR? Yes Information not available 09/11/2023 What Is Your Relationship Status? Information not available 09/11/2023 Do You Or Have You Ever Used Smokeless Tobacco? Never Used Smokeless Tobacco Information not available 09/11/2020 Do You Use Any Illicit Or Recreational Drugs? No [email or web address] Information not available 12/08/2022 Has Tobacco Cessation Counseling Been Provided? No [email or web address] Information not available 12/08/2022 How Many Years [...] adjuvanted, quadrivalent, PF 3 completed Julia bartlett, [facility] 09/18/2023 12:02:22 Influenza, adjuvanted, quadrivalent, PF 2 [facility] 09/18/2023 12:41:22 pneumococcal polysaccharide PPV23 3 completed [facility] 09/18/2023 12:41:56 COVID-19, mRNA, LNP-S, bivalent, PF, 30 mcg/0.3 mL dose 3 completed [facility] 09/18/2023 13:00:38 Influenza, adjuvanted, trivalent, PF 0 completed Betty Carlos Manuel [facility] 10/09/2020 10:36:00 Pneumococcal conjugate PCV 13 5 completed Betty Horowitz [facility] 10/09/2020 10:36:13 pneumococcal polysaccharide PPV23 8 completed Betty Horowitz [facility] 10/09/2020 10:36:23 Tdap 0 completed [facility] 10/09/2020 10:36:35 zoster recombinant 0 completed Betty Horowitz [facility] 10/09/2020 10:36:43 Past Encounters Encounter ID Performer Location Encounter Start Date Encounter Closed Date Diagnosis/Indication Diagnosis SNOMED-CT Code Diagnosis ICD10 Code Diagnosis Note [id number] Modesta Woodard at [facility] on [address] [facility] [place] [address] 09/08/2020 12:52:27 09/09/2020 14:55:34 Fracture of humerus 92908322 S42.391A s/p ORIF 2/5Oxycodo ne PRN pain-incre ase to 15 mg Q4h PRN due to severe painSchedu le tylenol 1000 mg TIDASA 81 mg daily for DVT prophylaxi sPT OT eval and treatMonit or Orthostati c hypotension 06381805 I95.1 Monitor bpNow back on lisinopril Constipation 90241870 K5 9.09 Miralax 17 g daily PRNSenna 2 tabs QHSMonitor Essential hypertension 40871048 I10 Lisinopril 10 mg dailyMonit or bp Insomnia 163749852 G47.0 9 Trazodone 25 mg QHSMonitor [id number] [facility] on [address] [facility] [place] [address] 09/11/2020 18:28:11 09/14/2020 11:28:40 Fracture of humerus 62497229 S42.391A s/p ORIF 2/5Continu e oxycodone 15 mg Q4h PRN due to severe pain and APAP 1000 mg TID scheduled. Continue ASA 81 mg qd for DVT prophylaxi sContinue P/OT as needed per ortho.Has f/u with ortho on 09/18.Monit or CSM of hand and pain. Orthostati c hypotension 89837057 I95.1 BP had been high since here, but low this afternoon. No sxs of orthostasi s.Monitor BP. Constipation 58697419 K5 9.09 Continue Senna 2 tabs qhs and Miralax 17 gms qd prnMonitor bowel function Essential hypertension 88568313 I10 BP low today, but had been high, perhaps pain is in better control. Continue lisinopril 10 mg qd,Monitor BP and labs. Insomnia 916766761 G47.0 9 Continue trazodone 25 mg qhs prn.Monito r sleep patterns. Coronary arteriosclerosis 31820339 I25.10 Hx of s/p NSTEMI with BMS to mRCA in 2018. No current sxs. Continue ASA as above. Not on BB, not sure why. F/U with cardio as planned. [id number] [facility] on [address] [facility] [place] [address] 09/14/2020 09:40:19 09/15/2020 15:12:51 Fracture of humerus 81140141 S42.391A s/p ORIF 2/5Will increase oxycodone 15 mg Q3h PRN to improve pain control Schedule tylenol 1000 mg TID ASA 81 mg daily for DVT prophylaxi scont PT OTMonitor Constipation 38061837 K5 9.09 Miralax 17 g daily PRNSenna 2 tabs QHSMonitor Essential hypertension 18509998 I10 BP slightly high today-will monitor after pain better controlled Lisinopril 10 mg dailyMonit or bp [id number] Modesta Woodard at [facility] on [address] [place] [address] 09/16/2020 08:49:20 09/18/2020 10:01:14 Fracture of humerus 69326670 S42.391A s/p ORIF 2/5Healing as expected per orthoRemai ns NWB to right upper extremityO xycodone 15 mg Q3h PRN-will taper this dose as pain improves Tylenol 1000 mg TID ASA 81 mg BID x 4 weeks for DVT prophylaxi scont PT OTMonitor Constipation 01744191 K5 9.09 Miralax 17 g daily PRNSenna 2 tabs QHSMonitor Essential hypertension 58496242 I10 Lisinopril 10 mg daily Monitor bp [id number] Modesta Woodard at [facility] on [address] [place] [address] 09/18/2020 10:08:59 09/21/2020 14:26:02 Fracture of humerus 79576894 S42.391A s/p ORIF 2/5Healing as expected per orthoRemai ns NWB to right upper extremityC ontinues to c/o severe pain despite oxycodoneW ill d/c oxycodoneS tart dilaudid 4 mg Q3h PRNASA 81 mg BID x 4 weeks for DVT prophylaxi scont PT OTMonitor [id number] Modesta Woodard [facility] on [address] [place] [address] 09/25/2020 07:48:23 09/28/2020 15:07:06 Fracture of humerus 23396580 S42.391A s/p ORIF 2/5Healing as expected per orthoRemai ns NWB to right upper extremityD ilaudid 4 mg Q3h PRN for pain ASA 81 mg BID until 10/14VNA services in place for discharge Constipation 88798759 K5 9.09 Miralax 17 g daily PRNSenna 2 tabs QHSMoving bowels regularly Essential hypertension 98907752 I10 Lisinopril 10 mg dailyBP well controlled Insomnia 053116494 G47.0 9 Trazodone 25 mg QHS [id number] PAT REARDON NP [facility] [address] 12/08/2022 12:00:47 12/12/2022 12:38:13 Coronary arteriosclerosis 92745323 I25.10 Not on meds other than lisinopril 10 mg dailyMonit or CP status Essential hypertension 08529889 I10 On lisinopril 10 mg dailyMonit or VS, labs, adjust prnCBC, CMP x 1 in am Dementia 33737873 F03.90 Also with depression Unable to care for self at home, here for LTCOnly med at present is Cymbalta 20 mg dailyScore d 17 on SLUMS, c/w dementiaIn voke HCPMonitor mood, behaviorsP sych referral prn Osteoarthritis 505955439 M19.90 Continue prn APAP, Ca with D, glucosamin e 1000 mg bidMonitor pain, mobilityPT OT eval prnAdjust tx. as needed. [id number] Lesia Machado MD [facility] [address] [address] 12/09/2022 07:54:41 12/12/2022 14:52:47 Dementia 78204881 F02.B0 will monitor and support as she adjusts to facilityse e meds for mixed anxiety disorder Mixed anxi ety and depressive disorder 461811118 F41.8 duloxetine 20 mg dailywill monitor Essential hypertension 01722168 I10 lisinopril 10 m dailywill monitor Osteoarthritis 431307892 M15.0 APAP 650 mg q4h prnwill monitor [id number] PAT REARDON NP [facility] [address] 12/12/2022 10:31:48 12/18/2022 08:23:24 Dementia 84370264 F02.B0 monitor for behavior changes, not on meds at this time.provi de support as she adjusts to facilityex pect decline Mixed anxi ety and depressive disorder 408432177 F41.8 continue duloxetine 20 mg dailymonit or for behavior and mood changespsy ch as needed Essential hypertension 81594387 I10 lisinopril 10 m dailymonit or VSmonitor for clinical status changes Osteoarthritis 990452909 M15.0 APAP 650 mg q4h prnmonitor for clinical status changesPT/ OT as needed Anemia 266342825 D64.9 Hgb 8.1, microcytic No labs for comparison Plan -CBC, Iron studies 12/15Heme test stools x 3Not on AC or ASAMonitor [id number] Louis Brownlee MD [facility] [address] [address] 12/14/2022 08:02:52 12/18/2022 08:32:57 Essential hypertension 53754111 I10 borderline elevatedmo nitor need to titrate medication Dementia 70348782 F03.90 appears to be adjusting well to facilityco ntinue supportive caremonito r for behaviors Hearing loss 90389221 H9 0.0 currently need to shout - no hearing aid in placeaudio logy exam if HCP allows [id number] SCOTT Yao [facility] [address] [address] 12/20/2022 10:52:43 12/29/2022 14:35:56 Dementia 33220965 F03.90 adjusting well to facilitysu pportive careexpect declinemon itor moodpsych prn Essential hypertension 34745761 I10 bp normallisi nopril 10 mg qdmonitor bp and adjust dose prn Hearing loss 09807442 H9 0.0 no hearing aid in placeaudio logy exam if HCP allows Depressive disorder 1438 9007 F32.A stablecymb matthew 20 mg qdmonitor moodpsych prn [id number] PAT REARDON NP [facility] [address] 12/21/2022 08:16:28 12/29/2022 15:41:13 Dementia 56727155 F02.B0 On duloxetine 20 mg daily for depr./anx. Monitor mood, behaviorsT ransitioni ng well to LTC at this time.HCP invokedExp ect continued decline Mixed anxi ety and depressive disorder 365112655 F41.8 continue duloxetine 20 mg dailymonit or for behavior and mood changespsy ch eval prn Essential hypertension 55146392 I10 continue lisinopril 10 m dailymonit or VS q monthcheck BMP prnadjust meds prn Osteoarthritis 312430428 M15.0 Continue glucosamin e 1000 mg bid, Ca with D hardy, APAP 650 mg q4h prnmonitor pain, mobility/a ctivity - adjust tx. as neededPT/O T eval and tx. prn Anemia 848555649 D64.9 Hgb 8.1, microcytic No labs for comparison Plan -CBC, Iron studies 12/15 not done - will reorderHem e test stools x 3 - will reorderMon itor for sx., s/s active bleed Coronary arteriosclerosis 44968798 I25.10 Not on meds other than lisinopril 10 mg dailyMonit or CP status Hyperlipidemia 62046676 E78.5 Not on meds at this time Orthostati c hypotension 23142950 I95.1 Unclear hx.Not on meds at this time, but is on lisinopril 10 mg dailyMonit or VS., sx. [id number] PAT REARDON NP [address] [address] 12/22/2022 09:45:50 12/30/2022 10:16:20 Anemia 278952872 D64.9 Hgb 8.1, 9.1 - microcytic No outpt. labs for comparison Todays labs showing low Fe levelPlan -Start FeSO4 325 mg daily, Vit C 500 mg dailyHeme test stools x 3 - reorderedM onitor for sx., s/s active bleedCBC q month x 3, start 01/23 Dementia 62564512 F02.B0 Continue duloxetine 20 mg daily for depr./anx. Monitor mood, behaviorsT ransitioni ng well to LTC at this time.HCP invokedExp ect continued decline Mixed anxi ety and depressive disorder 913177458 F41.8 continue duloxetine 20 mg dailymonit or for behavior and mood changespsy ch eval prn Essential hypertension 55251303 I10 continue lisinopril 10 m dailymonit or VS q monthcheck BMP prnadjust meds prn Osteoarthritis 125955029 M15.0 Continue glucosamin e 1000 mg bid, Ca with D hardy, APAP 650 mg q4h prnmonitor pain, mobility/a ctivity - adjust tx. as neededPT/O T eval and tx. prn Coronary arteriosclerosis 03258602 I25.10 Not on meds other than lisinopril 10 mg daily, continueMo nitor CP status Hyperlipidemia 73984274 E78.5 Not on meds at this time Orthostati c hypotension 40294614 I95.1 Unclear hx.Not on meds at this time, but is on lisinopril 10 mg dailyMonit or VS., sx. [id number] PAT REARDON NP [address] [address] 01/02/2023 14:15:59 01/04/2023 14:57:39 Anemia 073564374 D64.9 microcytic Now on Fe SO4 325 mg and Vit C 500 mg dailyhgb today improving - 9.8Monitor for sx., s/s active bleedCBC q month x 3, start 01/23 Dementia 40382042 F02.B0 Continue duloxetine 20 mg daily for depr./anx. Monitor mood, behaviorsT ransitioni ng well to LTC at this time.HCP invokedExp ect continued decline Mixed anxi ety and depressive disorder 085108570 F41.8 continue duloxetine 20 mg dailymonit or for behavior and mood changespsy ch eval prn Essential hypertension 34190054 I10 continue lisinopril 10 m dailymonit or VS q monthcheck BMP prnadjust meds prn Osteoarthritis 297829587 M15.0 Continue glucosamin e 1000 mg bid, Ca with D hardy, APAP 650 mg q4h prnmonitor pain, mobility/a ctivity - adjust tx. as neededPT/O T eval and tx. prn Coronary arteriosclerosis 32890796 I25.10 Not on meds other than lisinopril 10 mg daily, continueMo nitor CP status Hyperlipidemia 26096857 E78.5 Not on meds at this time Orthostati c hypotension 43233574 I95.1 Unclear hx.Not on meds at this time, but is on lisinopril 10 mg dailyMonit or VS., sx. PAT REARDON NP [facility] [address] [address] 01/09/2023 15:15:55 01/12/2023 16:02:38 Anemia 467362344 D64.9 microcytic Now on Fe SO4 325 mg and Vit C 500 mg dailyhgb today improving - 9.8Monitor for sx., s/s active bleedCBC q month x 3, start 01/23 Dementia 69529364 F02.B0 Didn't sleep last night, increased issues [...] decline Mixed anxi ety and depressive disorder 673568452 F41.8 continue duloxetine 20 mg dailymonit or for behavior and mood changespsy ch eval prn Essential hypertension 55847769 I10 continue lisinopril 10 m dailymonit or VS q monthcheck BMP prnadjust meds prn Osteoarthritis 510038246 M15.0 Continue glucosamin e 1000 mg bid, Ca with D hardy, APAP 650 mg q4h prnmonitor pain, mobility/a ctivity - adjust tx. as neededPT/O T eval and tx. prn Coronary arteriosclerosis 50648329 I25.10 Not on meds other than lisinopril 10 mg daily, continueMo nitor CP status Hyperlipidemia 28099619 E78.5 Not on meds at this time Orthostati c hypotension 88331739 I95.1 Unclear hx.Not on meds at this time, but is on lisinopril 10 mg dailyMonit or VS., sx. [id number] HILDA JENNINGS [facility] [address] [address] 01/13/2023 12:03:20 01/17/2023 09:42:38 Leukocytosis 399645301 D72.829 no focal symptomsre peat CBC with diff mondayif patient becomes symptomati c initiate septic workup, urine/lung s [id number] Lesia Machado MD [facility] [address] [address] 01/27/2023 06:49:36 02/09/2023 14:37:52 Dementia 93377987 F02.B0 will monitor and support as neededsee meds for mixed anxiety disorderex pect decline Mixed anxi ety and depressive disorder 893856799 F41.8 duloxetine 20 mg dailywill monitor Essential hypertension 48798798 I10 lisinopril 10 m dailywill monitor Anemia 124641859 D50.8 FeSO4 325 mg dailyvita C 500 mg dailywill monitor Osteoarthritis 815294440 M15.0 APAP 650 mg q4h prnwill start APAP 650 mg tidwill monitor [id number] Edie Serna NP [facility] [address] [address] 01/27/2023 14:58:37 01/31/2023 03:52:19 Hearing loss 91587138 H90.0 no hearing aid in placeaudio logy exam if HCP allows Pain in left arm 4393085 00 M79.602 left arm ecchymotic area with tenderness and no deformity or decrease in movement sp fall with hx of hardware in this armxray of left lower arm 2 viewscold compress and elevation as toltylenol for pain(alrea dy on sched tylenol) Falls 139530038 R29.6 sp fall after tripping over a roommates cordmonito r for fallsno change in consciouss afety precaution s [id number] Edie Serna NP [facility] [address] [address] 02/01/2023 11:52:37 02/09/2023 16:21:00 Pain in left arm 644636597 M79.602 left arm ecchymotic area with tenderness and no deformity or decrease in movement sp fall with hx of hardware in this arm per documents but not noted in xrayxray of left lower arm 2 views shows no acute fracture completed on ontcol d compress and elevation as toltylenol for pain(alrea dy on sched tylenol) [id number] Edie Serna NP [facility] [address] [address] 02/24/2023 08:55:52 02/28/2023 14:42:57 Pain in left arm 260255782 M79.602 resolvedle ft arm ecchymotic area with tenderness and no deformity or decrease in movement sp fall with hx of hardware in this arm per documents but not noted in xrayxray of left lower arm 2 views shows no acute fracture completed on 01/28tylenol for pain Hearing loss 56871427 H9 0.0 no hearing aid in placeaudio logy exam if HCP allows Falls 865315973 R29.6 sp fall after tripping over a roommates cordmonito r for fallsno change in consciouss afety precaution s Dementia 39695664 F02.B0 will monitor and support as neededhx of wandering and exit seekingsee meds for mixed anxiety disorderex pect decline Mixed anxi ety and depressive disorder 645291295 F41.8 duloxetine 20 mg dailywill monitor Essential hypertension 79865847 I10 lisinopril 10 m dailywill monitor Anemia 812954335 D50.8 FeSO4 325 mg dailyvita C 500 mg dailywill monitor Osteoarthritis 267870158 M15.0 APAP 650 mg q4h prnglucosa mine 1000 mg bidwill start APAP 650 mg tidwill monitor [id number] Adelina Galarza MD [facility] [address] 05/08/2023 17:50:28 05/12/2023 12:09:43 Pruritic rash 31512342 L28.2 Likely started as dry skin, but with pt picking have become distinct lesions.Wi ll start triamcinol one cream 0.1 % BID x 2 wks and diphenhydr amine 25 mg qhs prn.Monito r [id number] PAT REARDON NP [facility] [address] [address] 05/16/2023 14:36:40 05/17/2023 08:27:50 Pain in toe 092201798 M79.675 right second toe, dorsal aspect, related most likely to pressure from shoe.mild irritation at this time, agree with daily bandaid for protection during the day, may remove HS. Enc. use of soft shoes with generous toe box to reduce pressure on toes.Monit or. [id number] Lesia Machado MD [facility] [address] [address] 05/19/2023 07:06:46 05/24/2023 08:26:28 Dementia [id number] F02.B0 will monitor and support as neededsee meds for mixed anxiety disorderex pect decline Mixed anxi ety and depressive disorder 546507043 F41.8 duloxetine 20 mg dailywill monitor Essential hypertension 12216244 I10 lisinopril 10 m dailywill monitor Osteoarthritis 188367423 M15.0 APAP 650 mg q4h prnAPAP 650 mg tidwill monitor Anemia 772514693 D50.8 FeSO4 325 mg dailywill monitor [id number] PAT REARDON NP [facility] [address] [address] 06/13/2023 11:43:26 06/14/2023 15:46:36 Generalized headache 571363078 R51.9 Unclear etiologyDa power, for quite a while now, monthsAPAP not managing pain.Due to age and multiple comorbid conditions expected to worsen, would not recommend aggressive work up at this time.Can start with labs - CBC, CMP TSH, A1C, ESR - treat as indicatedC an also consider cervical x ray if labs ok.Adding daily riboflavin 400 mg daily for nowMonitor [id number] PAT REARDON NP [facility] [address] 06/15/2023 11:13:41 06/20/2023 07:46:45 Generalized headache 742015929 R51.9 Unclear etiology, but does have h/o [...] be safe will cancel excedrin order above. [id number] Edie Serna NP [facility] [address] [address] 07/05/2023 13:26:04 07/12/2023 10:35:44 Abrasion 987165931 T14.8XXA pt with abrasion to right index fingerns wash, pat dry, bacitracin and bandaid daily x 3 daysmonito r for infection [id number] PAT REARDON NP [facility] [address] [address] 1 07/11/2023 15:58:56 07/18/2023 14:12:18 Generalized headache 454443266 R51.9 h/o migrainess evere cervical DDD identified on x ray Pain seems to be better Continue current POC -riboflavi n 400 mg daily - monitor x 2 months.APA P 650 mg tidglucosa mineduloxe jonny 20 mg qd Monitor Dementia 66130638 F02.B0 Monitor mood, behaviorsO n duloxetine 20 mg qd - continuePs ych eval prn Mixed anxi ety and depressive disorder 051162142 F41.8 continue duloxetine 20 mg dailymonit or mood, behaviors Essential hypertension 21389743 I10 VSScontinu e lisinopril 10 m dailyBMP check periodical ly Anemia 911078614 D50.8 Continue FeSO4 325 mg daily and Vit C dailymonit or CBC, stable at present. Degenerati on of cervical intervertebral disc 18933510 M50.30 See abovechron ic headachese malaika DDD [id number] nue APAP tid, glucosamin e, duloxetine Monitor pain, neuros [id number] PAT REARDON NP [facility] [address] [address] 1 08/15/2023 15:34:19 08/18/2023 14:23:32 Bilateral hearing loss 34560118 H91.93 Seen by Audiology, anglei nieves hearing aides.Teena is medically cleared to be fitted for hearing aides for daily use.She is agreeable to this, and will improve her quality of life. [id number] Edie Serna NP [facility] [address] [address] 09/04/2023 11:59:31 09/07/2023 13:42:40 Hearing loss 41054686 H90.0 no hearing aid in placeaudio logy exam if HCP allows Acute COVID-19 824991718 8 U07.1 COVID positive result noted on routine facility testing on 09/03/23. 09/03 international account executive provider notified and labs ordered. Had a [...] 2 weeksvital s dailymonit or for sequelae [id number] Edie Serna NP [facility] [address] [address] 09/06/2023 16:02:56 09/11/2023 14:22:44 Acute COVID-19 0589181061 U07.1 COVID positive result noted on routine facility testing on 09/03/23. 09/03 international account executive provider notified and labs ordered. Had a [...] plan above monitor for sequelae Hearing loss 34797754 H9 0.0 no hearing aid in placeaudio logy exam if HCP allows [id number] Edie Serna NP [facility] [address] [address] 09/07/2023 13:29:09 09/11/2023 15:14:41 Acute COVID-19 4877863029 U07.1 COVID positive result noted on routine facility testing on 09/03/23. 09/03 international account executive provider notified and labs ordered. Had a cough a few days prior maybe cough started on 09/01tart paxlovid 300mg/100 mg po bid x 5 daysrobitu ssin 10 ml po q 4 hours prn coughmucin ex dm 600mg/30 po q 12 hours x 10 daysencour age po fluids > 2liters/24 hoursisola tion per facility protocolbm p and cbc mondays x 2 weeksvital s daily 09/07 cont plan above monitor for sequelae Hearing loss 56578612 H9 0.0 no hearing aid in placeaudio logy exam if HCP allows [id number] Adelina Galarza MD [address] [address] 09/11/2023 15:06:07 10/03/2023 12:46:01 Adult failure to thrive syndrome 013290655 R62.7 With sig. wt. loss over the past 2 months.Sta rted on mighty shake BID on 09/08Monitor wts and labs.Follo wed by care manager cna. Acute COVID-19 470400543 8 U07.1 Tested + on 09/03/23.Had mild sxs. Mostly resolvedCo mpleted paxlovid on 09/09To use dexamethas one, fluids, supplement al O2 prn for sxs.Contin ue to monitor O2 sats, temp, GI sxs and po intake.Mon itor for sequelae Hearing loss 28002125 H9 0.0 Hearing aids were lost.Facil ity in process of replacing them. Generalized headache 162 521813 G44.89 No c/o today.Cont inue APAP 650 mg TID.Monito r sxs. Degenerati on of cervical intervertebral disc 46207336 M50.30 Continue meds as above and glucosamin e 1000 mg BID. Dementia 75091968 F02.B0 Continues at baselineCo ntinue duloxetine 20 mg qdContinue supportive care, expect decline.HC P invokedMon itor mood and behaviors. Psych consult prn. Mixed anxi ety and depressive disorder 391500095 F41.8 Mood good today.Cont inue meds as above.Demi tor mood.Consu lt psych prn Essential hypertension 51496948 I10 BP in good control on lisinopril 10 mg qd.BP goal for this elderly woman is permissive HTN, with SBP<150 and DBP<90Moni tor BP and labs. Anemia 340951211 D50.8 Hgb in nl range (barely) on last check.Cont inue FeSO4 325 mg qd with Vit C 500 mg qd for absorption .Monitor CBC Osteoarthritis 387153524 M15.0 Continue meds as above.Demi tor sxs. [id number] Edie Serna NP [facility] [address] [address] 10/16/2023 09:01:00 10/19/2023 09:13:39 Adult failure to thrive syndrome 112562423 R62.7 With sig. wt. loss over the past 2 months.Sta rted on mighty shake BID on 09/08 but no 113 lbs and was 114lbsMoni tor wtslast weight 10/03 will request new weight todayFollo wed by care manager cna. Dementia 74105971 F02.B0 Continues at baselineCo ntinuedulo xetine 20 mg qdContinue supportive care, expect decline.HC P invokedMon itor mood and behaviors. Psych consult prn. Hearing loss 16319996 H9 0.0 Hearing aids were lost.Facil ity in process of replacing them. Nasal congestion 6065455 0 R09.81 has some nasal jeanie, hoarse voice this am 10/15 with positive exposure to flu from roommate3/ 18start resp panelsalt water gargles q 3 hours prn sore throatrobi tussin 10 ml po q 4 hours prn cough/jeanie x 14 dayssuppor tive caremonito r for flu like symptoms Falls 005049423 R29.6 hx of falls with right humerus fx in pastno falls recently, however more than 1-2 in mechanical falls within last year and with injury that resolvedtr ip hazards removed from roomsuppor tive caresafety measuresmo nitor [id number] Edie Serna NP [facility] [address] [address] 11/01/2023 13:05:54 11/03/2023 16:25:24 Adult failure to thrive syndrome 713271227 R62.7 With sig. wt. loss over the past 2 months.Sta rted on mighty shake BID on 09/08 approx same as last month 114lbs last on 10/15Monito r wtsFollowe d by care manager cna. Dementia 69091512 F02.B0 Continues at baseline with wandering at timesConti nueduloxet ine 20 mg qdContinue supportive care, expect decline.HC P invokedMon itor mood and behaviors. Psych consult prn. Hearing loss 85076738 H9 0.0 Hearing aids were lost.Facil ity in process of replacing them.remai ns hard of hearing [id number] Edie Serna NP [facility] [address] [address] 11/27/2023 14:59:27 11/29/2023 12:46:25 Dementia 77731306 F02.B0 Continues at baseline with wandering at timesConti nueduloxet ine 20 mg qdContinue supportive care, expect decline.HC P invokedMon itor mood and behaviors. Psych consult prn. Hearing loss 28393337 H9 0.0 Hearing aids were lost.Facil ity in process of replacing them.remai ns hard of hearing Depressive disorder 3548 9007 F32.A with anxiety and exit seeking behaviors will get urinalysis to rule out infectious cause contcymbal ta 20 mg qdmonitor moodpsych prn [id number] Edie Serna NP [facility] [address] 11/30/2023 11:20:30 12/05/2023 16:26:19 Dementia 58040927 F02.B0 Continues at baseline with wandering at timesConti nueduloxet ine 20 mg qdContinue supportive care, expect decline.HC P invokedMon itor mood and behaviors. Psych consult prn. Hearing loss 68325417 H9 0.0 Hearing aids were lost.Facil ity in process of replacing them.remai ns hard of hearing Urinary tr act infectious disease 88645664 N39.0 she likely has a UTI, however with difficulty obtaining another urine and prior results being possibly contaminat ed it is reasonable to treat with increased behaviors, positive nitrates, bacteria, and leuckocyte s5/2 cipro 500 mg po er daily x 3 daysmonito r for changes [id number] Edie Serna NP [facility] [address] 12/04/2023 12:28:52 12/06/2023 08:37:23 Dementia 41145514 F02.B0 Continues at baseline with wandering at timesConti nueduloxet ine 20 mg qdContinue supportive care, expect decline.HC P invokedMon itor mood and behaviors. Psych consult prn. Hearing loss 59032333 H9 0.0 Hearing aids were lost.Facil ity in process of replacing them.remai ns hard of hearing Osteoarthritis 615268695 M15.0 APAP 650 mg tid and q4h prn nte 3gram/dayg lucosamine 1000 mg bidincreas e muscle and joint external gel 2.5 % to bid and q 6hours prnwill monitor [id number] Edie Serna NP [facility] [address] [address] 12/15/2023 13:01:32 12/20/2023 08:30:15 Osteoarthritis 885159185 M15.0 APAP 650 mg tid and q4h prn nte 3gram/dayg lucosamine 1000 mg bidmuscle and joint external gel 2.5 % to bid and q 6hours prnwill monitor Dementia 73794674 F02.B0 Continues at baseline with wandering at timesConti nueduloxet ine 20 mg qdContinue supportive care, expect decline.HC P invokedMon itor mood and behaviors. Psych consult prn. Hearing loss 55221269 H9 0.0 Hearing aids were lost.Facil ity in process of replacing them.remai ns hard of hearing Urinary tr act infectious disease 83627333 N39.0 exit seeking remains with slightly decreased agitation post abxshe likely has a UTI, however with difficulty obtaining another urine and prior results being possibly contaminat ed it is reasonable to treat with increased behaviors, positive nitrates, bacteria, and leuckocyte s5/2 cipro 500 mg po er daily x 3 daysmonito r for changes [id number] Louis Brownlee MD [facility] [address] [address] 01/10/2024 14:18:21 03/22/2024 15:05:32 Osteoarthritis 352923138 M15.0 controlled with tylenolmon itor for effectcurr ently appears stable without complaint Dementia 52529034 F02.B0 appears with baseline moderate dementiaHC P invokedcon tinue supportive caremonito r for behaviorsp sych eval prn Hearing loss 80186616 H9 0.0 appears significan t at baselineau diology eval if HCP allows [id number] Edie Serna NP [facility] [address] [address] 01/15/2024 16:48:38 01/17/2024 18:15:30 Acute COVID-19 8925708735 U07.1 COVID positive result noted on routine [...] cbc on 01/15vitals daily monitor for sequelae [id number] Edie Serna NP [facility] [address] [address] 01/17/2024 14:38:10 01/24/2024 15:32:56 Acute COVID-19 2814598919 U07.1 COVID positive on / 7startmoln upiravir 800 mg po bid x 5 daysrobitu ssin 10 ml po q 4 hours prn coughencou rage po fluids > 2liters/24 hoursisola tion per facility protocolbm p and cbc on 01/15vitals daily 01/16 labs not done, unclear why, overall seems to be resolvingn sg aware of need for labsmonito r for sequelae [id number] Edie Serna NP [facility] [address] [address] 01/19/2024 11:12:02 01/24/2024 16:30:00 Acute COVID-19 0663350603 U07.1 COVID positive on 7startmoln upiravir 800 [...] at this time monitor for sequelae Dementia 22383812 F02.B0 Continues at baseline with wandering at times01/18 attempting to leave unit on several occassions today and agitated with yelling and swearing start trazodone 25 mg po q 8 hours prn agitation x 14 daysstart psych consult Continuedu loxetine 20 mg qdContinue supportive care, expect decline.HC P invokedMon itor mood and behaviors. Psych consult prn. [id number] Edie Serna NP [address] [address] 01/25/2024 09:54:55 01/30/2024 09:58:44 Acute COVID-19 1466853524 U07.1 resolved on 01/24COVID positive on 01/13/2401/14 [...] at this time monitor for sequelae Dementia 69052400 F02.B0 Continues at baseline with wandering at times01/18 attempting to leave unit on several occassions family psychologist visit from 01/18 rec trazodone 25 mg po bid prn for symptoms of agitation and anxiety and rec considerin g transfer to locked dementia unit for her multiple elopement attempts.w ill agree with aboveConti nueduloxet ine 20 mg qdContinue supportive care, expect decline.HC P invokedMon itor mood and behaviors. Psych consult prn. [id number] SCOTT LI [facility] [address] [address] 01/29/2024 11:04:51 02/08/2024 09:50:53 Dementia 95718227 F02.B0 see hpiwill decrease trazodone from 25 mg BID to 12. 5 mg BID prncontinu e to monitor mood and behaviornu rsing will update provider with changes. [id number] Edie Serna NP [facility] [address] [address] 02/05/2024 09:47:53 02/08/2024 13:31:10 Dementia 79105806 F01.C0 conttrazod one 12. 5 mg BID prncontinu e to monitor mood and behaviornu rsing will update provider with changes. Falls 080624494 R29.6 hx of falls with right humerus fx in pastappear s to be a mechanical fall today on 02/04, no injuries, has baseline knee soreness, no xray at this timetrip hazards removed from roomsuppor tive caresafety measuresmo nitor Osteoarthritis 357645855 M15.0 contAPAP 650 mg tid and q4h prn nte 3gram/dayg lucosamine 1000 mg bidmuscle and joint external gel 2.5 % to bid and q 6hours prnwill monitor [id number] Edie Serna NP [facility] [address] [address] 02/07/2024 12:39:17 02/08/2024 15:56:07 Dementia 52548049 F01.C0 conttrazod one 12. 5 mg BID prn to be reeval on 02/11, getting occcontinu e to monitor mood and behaviornu rsing will update provider with changes. Fatigue 94073479 R53.83 reports increased fatigue7/1 0 startUA with cnscbc and cmpwill rule out infectious cause vs post covid weaknessmo nitor [id number] Edie Serna NP [facility] [address] [address] 02/29/2024 13:47:34 03/01/2024 13:44:45 Dementia 14324943 F02.B0 trazodone 12. 5 mg BID prn behaviors, has not used in some time and dc'dcontin ue to monitor mood and behaviornu rsing will update provider with changes. Acute COVID-19 682681886 8 U07.1 resolved on 01/24COVID positive on 01/13/24 with mild course without antiviralm onitor for sequelae Falls 823458687 R29.6 hx of falls with right humerus fx in pastmechan ical fall on 02/04, no injuries, no xraytrip hazards removed from roomsuppor tive caresafety measuresmo nitor Osteoarthritis 647778204 M15.0 contAPAP 650 mg tid and q4h prn nte 3gram/dayg lucosamine 1000 mg bidmuscle and joint external gel 2.5 % to bid and q 6hours prnwill monitor Hearing loss 53598996 H9 0.0 Hearing aids were lost.Facil ity in process of replacing them.remai ns hard of hearing Essential hypertension 29150897 I10 bp stablelisi nopril 10 m dailywill monitor [id number] [facility] [address] [address] 03/11/2024 11:05:46 03/13/2024 11:15:29 Dementia 05944600 F02.B0 continue to monitor mood and behaviornu rsing will update provider with changes.co nt duloxetine Hearing loss 49319595 H9 0.0 Hearing aids were lost.Facil ity in process of replacing them.remai ns hard of hearing Seasonal a llergic rhinitis 200120416 J30.2 has seasonal rhinitis in hxcould be baseline with allergies start claritin 10 mg po daily in ammonitor Cough 65260340 R05.9 8new cough with glossy eyes and rhinitisst artrobitus sin 10 ml po q 4hours prn coughcxr 2 view ro pnacovid swabmucine x dm 600/30mg po q amcbc with diff and bmp in ammonitor [id number] Edie Serna NP [facility] [address] 03/15/2024 14:32:18 03/22/2024 15:14:41 Cough 96143749 R05.9 resolved, likely viral illness and possibly allergies with EOS 0.74 slightly elevated.h ad cough with glossy eyes and rhinitis, resolved cxr 2 view ro pna, neg for acute disease, covid swab negativeco ntrobituss in 10 ml po q 4hours prn coughmucin ex dm 600/30mg po q am, helpingcla ritinmonit or Dementia 91298803 F02.B0 continue to monitor mood and behaviornu rsing will update provider with changes.co nt duloxetine Hearing loss 92825797 H9 0.0 Hearing aids were lost.Facil ity in process of replacing them.remai ns hard of hearing Seasonal a llergic rhinitis 002187097 J30.2 has seasonal rhinitis in hx, seems to be helpingcou ld be baseline with allergiesc ont claritin 10 mg po daily in ammonitor [id number] Adelina Galarza MD [facility] [address] 04/30/2024 19:55:54 05/01/2024 10:43:32 Adult failure to thrive syndrome 264232969 R62.7 With continued wt. loss.Has now lost a total of 12# since admission. Started on mighty shakes BID on 29Monitor wts and labs.Recon sult care manager cna. Consider mirtazapin e. Dementia 48907971 F02.B0 With sl. declineCon tinue duloxetine 20 mg qdContinue supportive care, expect continued decline.HC P invokedMon itor mood and behaviors. Psych consult prn. Generalized headache 162 829878 G44.89 No c/o tonight.Co ntinue APAP 650 mg TID.Monito r sxs. Degenerati on of cervical intervertebral disc 86634710 M50.30 Continue meds as above and glucosamin e 1000 mg BID. Mixed anxi ety and depressive disorder 946298109 F41.8 Mood good tonight.Co ntinue meds as above.Demi tor mood.Consu lt psych prn Essential hypertension 67310015 I10 BP remains in good control on monthly checks.Con tinue lisinopril 10 mg qd.BP goal for this elderly woman is permissive HTN, with SBP<150 and DBP<90Moni tor BP and labs. Anemia 023248207 D50.8 Hgb remains in nl rangeConti nue FeSO4 325 mg qd with Vit C 500 mg qd for absorption .Monitor CBC Osteoarthritis 183719297 M15.0 Continue meds as above.Demi tor sxs. Hearing loss 69789705 H9 0.0 Hearing aids were lost.Facil ity in process of replacing them. History of SARS-CoV-2 29 34888537 83950037 Z86.16 Tested + on 09/03/23.Now recoveredM onitor for sequelae Cough 55086748 R05.9 Resolved.C ontinue robitussin 10 ml po q 4 hrs prnConside r stopping Mucinex DM 600/30mg qamMonitor Seasonal a llergic rhinitis 542281521 J30.2 Improved.C ontinue claritin 10 mg qdMonitor sxs. [id number] Edie Serna NP [address] [address] 05/06/2024 09:58:19 05/07/2024 09:22:34 Dementia 77627191 F02.B0 With sl. mvehqcz20/ 7 start trazodone 25 mg po bid and q 12 hours prn agitation x 14 daysContin ueduloxeti ne 20 mg qdContinue supportive care, expect continued decline.HC P invokedMon itor mood and behaviors. Psych consult prn. Mixed anxi ety and depressive disorder 401700853 F41.8 Mood good tonight.Co ntinue meds as above.Demi tor mood.Consu lt psych prn Osteoarthritis 576462734 M15.0 Continue meds as above.Demi tor sxs. Hearing loss 22544858 H9 0.0 Hearing aids were lost.Facil ity in process of replacing them. Cough 30006627 R05.9 Resolving with rhinitisCo ntinue robitussin 10 ml po q 4 hrs prncont Mucinex DM 600/30mg qammonitor for need of adjust or stop if ablecough improvingc ovid swabMonito r Seasonal a llergic rhinitis 857977197 J30.2 baseline with rhinitisCo ntinue claritin 10 mg qdMonitor sxs. [id number] Edie Serna NP [facility] [address] [address] 05/20/2024 13:02:10 05/22/2024 10:44:06 Dementia 15907218 F02.B0 With sl. declinecon ttrazodone 25 mg po bid and q 12 hours prn agitation x 14 daysduloxe jonny 20 mg qdContinue supportive care, expect continued decline.HC P invokedMon itor mood and behaviors. Psych consult prn. Mixed anxi ety and depressive disorder 064616333 F41.8 Mood good tonight.Co ntinue meds as above.Demi tor mood.Consu lt psych prn1/du e to increased agitation and anxiety will order cbc and bmp and urinalysis (hopefully she will comply) to rule out infectious cause Osteoarthritis 233720262 M15.0 Continue meds as above.Demi tor sxs. Hearing loss 55708202 H9 0.0 Hearing aids were lost.Facil ity in process of replacing them. [id number] Edie Serna NP [facility] [address] [address] 07/05/2024 11:11:29 07/08/2024 13:09:40 Dementia 60143888 F02.B0 With sl. declinecon tcong trazodone 25 mg po bid and q 12 hours prn agitation x 14 daysduloxe jonny 20 mg qdContinue supportive care, expect continued decline.HC P invokedMon itor mood and behaviors. Psych consult prn. Mixed anxi ety and depressive disorder 136571580 F41.8 Mood good tonight.Co ntinue meds as above.Demi tor mood.Consu lt psych prnurine done with UTI see UTI above Osteoarthritis 215286197 M15.0 Continue meds as above.Demi tor sxs. Hearing loss 33622295 H9 0.0 Hearing aids were lost.Facil ity in process of replacing them. Urinary tr act infectious disease 39210075 N39.0 exit seeking remains with slightly decreased agitation1 09/05 finally complied for urinalysis on 07/03 and shows UTI > 100,000 strep-cult ure not back yet07/05 start augmentin 875/125mg po bid x 10days with probiotic1 2/6 cbc and cmp on tuesday 07/10monit or for changes [id number] Edie Serna NP [facility] [address] 07/11/2024 15:16:33 08/02/2024 11:43:50 Urinary tract infectious disease 56622328 N39.0 exit seeking remains with slightly decreased agitation1 09/05 finally complied for urinalysis on 07/03 and shows UTI > 100,000 strep-cult ure not back yet07/05 start augmentin 875/125mg po bid x 10days with probiotic1 2/6 cbc and cmp on tuesday 07/10on 07/11 clinically improving on abx, no s/sget another cbc and bmp on 07/15 to assess for wbc improvemen t or change and monitor closely in the meantimeli syeda leukocytos is due to utimonitor for changes Dementia 51888322 F02.B0 With sl. declinecon ttrazodone 25 mg po bid and q 12 hours prn agitation x 14 daysduloxe jonny 20 mg qdContinue supportive care, expect continued decline.HC P invokedMon itor mood and behaviors. Psych consult prn. Mixed anxi ety and depressive disorder 736619408 F41.8 Mood good todaydulox etine 20 mg po dailytrazo done 25 mg po bid and prn anxietyCon tinue meds as above.Demi tor mood.Consu lt psych prnurine done with UTI see UTI above Osteoarthritis 812978809 M15.0 Continue meds as above.Demi tor sxs. Hearing loss 92017494 H9 0.0 Hearing aids were lost.Facil ity in process of replacing them. [id number] Edie Serna NP [facility] [address] 08/29/2024 08:07:46 08/30/2024 11:08:23 Urinary tract infectious disease 92837920 N39.0 exit seeking remains with slightly decreased agitationo n 12/ started on augmentin 875/125mg po bid x 10days with probiotico n 12 clinically improving on abx, no s/swbc resolvingm onitor for changesnot e: she often refuses labs Dementia 12494595 F02.B0 With sl. declinecon ttrazodone 25 mg po bid and q 12 hours prn agitationd uloxetine 20 mg qdContinue supportive care, expect continued decline.HC P invokedMon itor mood and behaviors. Psych consult prn. Mixed anxi ety and depressive disorder 348379823 F41.8 Mood good todaydulox etine 20 mg po dailytrazo done 25 mg po bid and prn anxietyCon tinue meds as above.Demi tor mood.Consu lt psych prnurine done with UTI see UTI above Osteoarthritis 477344196 M15.0 Continue meds as above.Demi tor sxs. Hearing loss 05337636 H9 0.0 Hearing aids were lost.08/29 audiology referral for severe hearing lossneed to speak loudly into right ear or write things down to communicat e Excessive cerumen in ear canal 166410763 H61.23 pt with large amount of cerumen to bilateral earsdebrox 4 gtts tid to both ears, flush day 6monitor [id number] PAT REARDON NP [address] [address] 09/24/2024 13:00:47 09/26/2024 11:32:28 Recurrent falls 980779362 R29.6 Unwittness ed fall 09/22 resulting in left wrist painX ray + for fx.PT OT eval and txMonitor neuros, VS Closed fra cture of left wrist [id number] S62.92XA s/p fall 09/22 resulting in left wrist fracture and abrasionSe en [place] [facility] [place], referred to OrthoHas appt. tomorrow with probable surgical interventi on thereafter .APAP prn painElevat e armMonitor CSMUpdate Ortho with concernsRe turned with order for Augmentin 875 mg bid x 10 days - unclear if for concern of abrasion infection vs. UTI or other etiology. Urinary tr act infectious disease 96713417 N39.0 ???Returne d with order for Augmentin 875 mg bid x 10 days, unclear as to why she is on thisMainta in [facility] tor [id number] Edie Serna NP [facility] [address] [address] 09/25/2024 11:11:32 09/26/2024 12:18:48 Closed fracture of left wrist [id number] [id number] S62.92XA s/p fall 09/22 resulting in left wrist fracture and abrasion,s een at [facility] er, Wrist splinted and ally wrapped, referred [...] will continue Urinary tr act infectious disease 90325556 N39.0 on Augmentin 875 mg bid x 10 days, unclear as to why she is on this, will continue from [facility] tor 256707 Edie Serna NP [facility] [address] [address] 10/02/2024 11:16:50 10/02/2024 12:00:55 Closed fracture of left wrist [id number] 8891618 S62.92XA s/p orif on left wrist started on oxycodone 5mg po q 6hours prn pain pain controlled with minimal swelling to distal fingerscon tAPAP prn painElevat e armMonitor CSMUpdate Ortho with concerns [id number] Edie Serna NP [facility] [address] [address] 10/09/2024 13:52:28 10/10/2024 14:07:42 Closed fracture of left wrist [id number] 0972140 S62.92XA s/p orif on left wrist contoxycod one 5mg po q 6hours prn painpain controlled with minimal swelling to distal fingers improvingc ontAPAP prn painElevat e armMonitor CSMUpdate Ortho with concerns Urinary tr act infectious disease 66418403 N39.0 on Augmentin 875 mg bid x 10 days, unclear as to why she is on this, ? uti, will continue from er, almost completedM aintain fluidsMoni tor Dementia [id number] F02.B0 With sl. declinecon ttrazodone 25 mg po bid and q 12 hours prn agitationd uloxetine 20 mg qdContinue supportive care, expect continued decline.HC P invokedMon itor mood and behaviors. Psych consult prn. [id number] [facility] [address] 10/12/2024 11:47:37 10/14/2024 14:08:41 Closed fracture of left wrist [id number] 8405900 S62.92XA s/p surgical repairfoll ow ortho recs and update with concernsmo nitor site Urinary tr act infectious disease 66998969 N30.00 completed course of abxmonitor for recurrent infection Dementia 46796508 F02.B0 baseline dementiaco ntinue supportive careHCP invokedmon itor for behaviorsp sych eval prn Essential hypertension 24444688 I10 lisinopril 10 mg qdmonitor bp and need to titrate medication Health Concerns Section Related Observation LastModified by Organization Detai ls LastModified Time None Recorded Concern Status LastModified by Organization Details LastModified Time None Recorded Advance Directives Directive Y: Payers Encounter Date Sequence Insurance Name Policy Number Policy Rubio Covered Member ID Rubio Member ID Guarantor Name 09/24/2024 1 MEDICARE [place]: [employer] Teena Gonzalez [id number] Teena Baceski 09/24/2024 2 [place] [facility] Teena Gonzalez [id number] Teena Baceski 09/25/2024 1 MEDICARE B-[place]: [employer] Teena Gonzalez [id number] Teena Baceski 09/25/2024 2 [place] [facility] Teena Gonzalez [id number] Teena Baceski 10/02/2024 1 MEDICARE [place]: [employer] Teena Gonzalez [id number] Teena Gonzalez 10/02/2024 2 [place] [facility] Teena Gonzalez [id number] Teena Gonzalez 10/09/2024 1 [place] [facility] Teena Gonzalez [id number] Teena Gonzalez 10/09/2024 2 [place] [facility] Teena Gonzalez [id number] Teena Gonzalez 10/12/2024 1 [place] [facility] Teena Gonzalez [id number] Teena Gonzalez 10/12/2024 2 [place] [facility] Teena Gonzalez [id number] Teena Gonzalez Notes Date Note Type Note Provider Name and Address Organization Details Recorded Time 09/24/2024 text/html Teena is seen tod for an acute visit. She sustained a fall on 09/22, with resulting left wrist pain.X ray obtained, positive for fracture, sent to [facility] for eval and tx.Seen in ER, splint placed, referral made to Ortho for outpt. eval.Minimal paperwork for review, but Augmentin started 875 mg bid x 10 days, unclear as to why. No urine report seen, ? related to abrasion. Upon exam today, Teena is in bed, awake, alert, but appears tired. Communication difficult due to [place]. Family at bedside, no concerns, appears comfortable, trying to assist with po fluids.Has Ortho appt. tomorrow with probable surgical repair post appointment. PAT REARDON, CHEMICAL ECONOMIST [address] [facility], [address], [place], [address], [facility] 09/24/2024 13:20:18 09/25/2024 text/html Pt is seen today for an acute visit. Teena sustained a fall on 09/22, with resulting left wrist pain. An X ray obtained, positive for fracture, sent to [facility] for eval and tx. She was seen [...] is sitting in the [facility] She denies any pain to the left wrist and it is wrapped in splint with ally. Positive cms to distal fingers. of note: she was started on Augmentin started 875 mg bid x 10 days while in the Er, unclear as to why. No urine report seen, ? related to abrasion. Edie Serna NP [address] [facility], [address], [place], [address], [facility] 09/25/2024 12:05:40 10/02/2024 text/html Pt is seen today for an acute visit. Teena returned from left distal radium fx orif on 09/30 after an initial fall on 09/22. On exam today, Teena is sitting in a w/c in the activity room in [facility]. She denies any pain to the left wrist Since back her left wrist is wrapped in ally and wrap. She is to elevate left wrist on 3 pillows and fu in one week. She has oxycodone 5mg po q 6hours prn pain. Positive cms to distal fingers and milid swelling. ARm elevated on 3 pillows. Edie Serna NP [address] [facility], [address], [place], [address], [facility] [employer] [facility] 10/02/2024 11:28:01 10/09/2024 text/html Pt is seen today for an acute rounding visit. Pt returned from left distal radium fx with dorsal translocation with orif on 09/30 (with locking pegs/screws and cortical screws placed per operative report) with Dr Mock after an initial fall on 09/22. She remains confused unwrapping her splint and nursing continues to rewrap and elevate on pillow. She refuses to wear a sling. On exam, she is on 1:1 sitter basis as she is trying to get up. Trazodone prn is avail from nursing and nsg aware. On exam today, Teena is sitting in a w/c in the activity room in [facility]. She denies any pain to the left wrist Since back her left wrist is wrapped in ally and wrap. She is to elevate left wrist on 3 pillows and fu in one week. She has oxycodone 5mg po q 6hours prn pain. Positive cms to distal fingers and mild swelling improving. Arm elevated on 3 pillows. Edie Serna NP [address] [facility], [address], [place], [address], [facility] [employer] 10/09/2024 15:39:05 10/12/2024 text/html Patient is an 84 yo female resident seen for MD visit also with recent wrist fracture left, now s/p surgical repair. Baseline dementia, sitting in Broda chair in [facility]. Patient non-compliant with prior attempts at sling Louis Brownlee MD [address] [facility], [address], [place], [address], [employer] 10/12/2024 11:53:11 OBGyn Episode No OBEpisode recorded.
--- OUTSIDE RECORDS SUMMARY | 2024-10-16 16:38 | XMS_ITS | Continuity of Care Document ---
Author Organization [facility], [facility] Address [address] [place] [address] Care Team Providers Care Last Trimmer Name Role Phone JAMAAL FLORES Primary Care Provider [facility] OTHER Assessment No assessment [...] Address Organization Details Recorded Time Orthostatic hypotension 44205919 Active 2020 Modesta bartlett [facility] 13:44:57 Fracture of humerus 18195852 Active 2020 Modesta bartlett [facility] 13:45:01 Insomnia 866238148 Active 2020 Modesta bartlett [facility] 13:46:18 Constipation 69855025 Active 2020 Modesta bartlett [facility] 13:46:26 Essential hypertension 98994966 Active 2020 Modesta bartlett [facility] 13:46:27 Coronary arteriosclero sis 58254558 Active 2020 Adelina Galarza MD [address] [facility], [address], [place], [address] , [facility] 19:45:42 Dementia 49617237 Active 2022 PAT REARDON NP [address], [address], [place], [address], [facility] [employer] [facility] 3 12:53:33 Hyperlipidemi a 37928447 Active 2022 PAT REARDON NP [address], [address], [place], [address], [facility] [employer] [facility] 3 12:53:44 Depressive disorder 16356187 Active 2022 PAT REARDON NP [address], [address], [place], [address], [facility] [employer] [facility] 3 12:53:57 Osteoarthriti s 836213089 Active 2022 cheryle. right knee PAT REARDON NP [address] [facility], [address], [place], [address], [facility] [employer] [facility] 3 12:54:14 Hearing loss 51549782 Active 2022 PAT REARDON NP [address] [facility], [address], [place], [address], [facility] [employer] [facility] 3 12:54:24 History of migraine 424297943 Active 2022 PAT REARDON NP [address] [facility], [address], [place], [address], [facility] [employer] [facility] 3 12:57:42 Seasonal allergic rhinitis 046539984 Active 2022 PAT REARDON NP [address] [facility], [address], [place], [address], [facility] [employer] [facility] 3 12:57:51 Anemia 656118492 Active 2022 PAT REARDON NP [address], [address], [place], [address], [facility] [employer] [facility] 3 15:35:43 Falls 113083176 Active 2022 Edie Serna NP [address], [address], [place], [address], [facility] [employer] [facility] 3 15:07:17 Abrasion 585855991 Active 2022 Edie Serna NP [address] [facility], [address], [place], [address], [employer] [facility] 3 15:07:26 Pain in left arm 110024673 Active 2022 Edie Serna NP [address] [facility], [address], [place], [address], [employer] [facility] 3 15:08:01 Generalized headache 468528847 Active 2022 PAT REARDON NP [address] [facility], [address], [place], [address], [employer] [facility] 3 11:52:55 Acute COVID-19 4427754996 Active 2023 Adelina Galarza MD [address] [facility], [address], [place], [address], [employer] [facility] 4 18:51:00 Adult failure to thrive syndrome 515085998 Active 2023 Adelina Galarza MD [address] [facility], [address], [place], [address], [employer] [facility] 4 18:51:38 Problem Notes None recorded. Medical Equipment None Reported. Allergies Allergen ID Allergen Name Allergen Category Reaction Reaction Severity Criticality Documentation Date Start Date Code Code System Note Provider Name and Address Organization Details Recorded Time aspirin medicatio n Not available Not available Not available 09/08/2020 1191 RxNorm Not Available Not Available Not Available 50052 Substance with sulfonami de structure and antibacte rial mechanism of action (substanc e) medicatio n Not available Not available Not available 09/08/2020 45840 8003 SNOMED Not Available Not Available Not Available Medications Not known to be on any medication Vitals Date Recorded Body height Body weight Heart rate Respiratory rate Body temperature Oxygen saturation Oxygen saturation in Arterial blood by Pulse oximetry Systolic blood pressure Diastolic blood pressure Provider Name and Address Organization Details Last Updated DateTime 5 162.56 cm 21084.3 8 g 70 /min 18 /min 97.5 [degF] 97 % 97 % 143 mm[Hg] 65 mm[Hg] Edie Serna NP [address] [facility], [address], [place], [address], [employer] [facility] 15:26:39 Social History Question Answer Notes LastModified by Organizat ion Details LastModified Time Tobacco Smoking Status Former Smoker Has quit on and off since 1996, quit for good 2019. Smoked a ppd since age 13 PAT REARDON NP [address] [facility], [address], [place], [address], [facility] [employer] [facility] 12/08/2022 12:55:26 Do You Have An Advance Directive? Yes [email or web address] Information not available 12/08/2022 What Is Your Level Of Alcohol Consumption? None [email or web address] Information not available 09/08/2020 What Is Your Code Status? DNR/DNI DNH, No G Tube, No Dialysis [email or web address] Information not available 12/08/2022 Do You Or Have You Ever Used E-cigarettes Or Vape? Never Used Electronic Cigarettes Information not available 09/11/2020 Where Do You Live? [facility] Information not available 09/11/2023 Legal Guardian? No Informati on not available 09/11/2023 Do You Have A Medical Power Of Paper Counter? Yes Has HCP, Invoke Upon Admission [email or web address] Information not available 12/08/2022 What Was The Date Of Your Most Recent Tobacco Screening? 12/08/2022 [email or web address] Information not available 12/08/2022 Do You Have An Out Of Hospital DNR? Yes Information not available 09/11/2023 What Is Your Relationship Status? Information not available 09/11/2023 Do You Or Have You Ever Used Smokeless Tobacco? Never Used Smokeless Tobacco Information not available 09/11/2020 Do You Use Any Illicit Or Recreational Drugs? No [email or web address] Information not available 12/08/2022 Has Tobacco Cessation Counseling Been Provided? No [email or web address] Information not available 12/08/2022 How Many Years [...] adjuvanted, quadrivalent, PF 3 completed Julia bartlett, [facility] 09/18/2023 12:02:22 Influenza, adjuvanted, quadrivalent, PF 2 completed Julia bartlett, [facility] 09/18/2023 12:41:22 pneumococcal polysaccharide PPV23 3 [facility] 12:41:56 COVID-19, mRNA, LNP-S, bivalent, PF, 30 mcg/0.3 mL dose 3 [facility] 09/18/2023 13:00:38 Influenza, adjuvanted, trivalent, PF 0 completed Betty Carlos Manuel [facility], [facility] 10/09/2020 10:36:00 Pneumococcal conjugate PCV 13 5 [facility] 10/09/2020 10:36:13 pneumococcal polysaccharide PPV23 8 [facility] 10/09/2020 10:36:23 Tdap 0 completed Betty Horowitz [facility] 10/09/2020 10:36:35 zoster recombinant 0 completed Betty Horowitz [facility] 10/09/2020 10:36:43 Past Encounters Encounter ID Performer Location Encounter Start Date Encounter Closed Date Diagnosis/Indication Diagnosis SNOMED-CT Code Diagnosis ICD10 Code Diagnosis Note [id number] PAT REARDON NP [address] [address] 09/24/2024 13:00:47 09/26/2024 11:32:28 Recurrent falls 305247695 R29.6 Unwittness ed fall 09/22 resulting in left wrist painX ray + for fx.PT OT eval and txMonitor neuros, VS Closed fra cture of left wrist 3730706732 2740741 S62.92XA s/p fall 09/22 resulting in left wrist fracture and abrasionSe en [facility], referred to OrthoHas appt. tomorrow with probable surgical interventi on thereafter .APAP prn painElevat e armMonitor CSMUpdate Ortho with concernsRe turned with order for Augmentin 875 mg bid x 10 days - unclear if for concern of abrasion infection vs. UTI or other etiology. Urinary tr act infectious disease 98168143 N39.0 ???Returne d with order for Augmentin 875 mg bid x 10 days, unclear as to why she is on thisMainta in fluidsMoni tor [id number] Edie Serna NP [facility] [address] 09/25/2024 11:11:32 09/26/2024 12:18:48 Closed fracture of left wrist 8312901417 2170901 S62.92XA s/p fall 09/22 resulting in left wrist fracture and abrasion,[place] een [place] [facility] [place], Wrist splinted and ally wrapped, referred to Ortho surgery planned for 3npo at midnight on 09/29 pain controlled with minimal swelling to distal fingerscon tAPAP prn painElevat e armMonitor CSMUpdate Ortho with concernsRe turned with order for Augmentin 875 mg bid x 10 days - unclear if for concern of abrasion infection vs. UTI or other etiology. will continue Urinary tr act infectious disease 84738098 N39.0 on Augmentin 875 mg bid x 10 days, unclear as to why she is on this, [facility] [id number] Edie Serna NP [facility] [address] 10/02/2024 11:16:50 10/02/2024 12:00:55 Closed fracture of left wrist 5367445452 1909734 S62.92XA s/p orif on left wrist started on oxycodone 5mg po q 6hours prn pain pain controlled with minimal swelling to distal fingerscon tAPAP prn painElevat e armMonitor CSMUpdate Ortho with concerns [id number] Edie Serna, TREVON [facility] [address] [place] [address] 10/09/2024 13:52:28 10/10/2024 14:07:42 Closed fracture of left wrist 1363829201 5589459 S62.92XA s/p orif on left wrist contoxycod one 5mg po q 6hours prn painpain controlled with minimal swelling to distal fingers improvingc ontAPAP prn painElevat e armMonitor CSMUpdate Ortho with concerns Urinary tr act infectious disease 82713418 N39.0 on Augmentin 875 mg bid x 10 days, unclear as to why she is on this, ? uti, will continue from er, almost completedM aintain fluidsMoni tor Dementia 32295930 F02.B0 With sl. declinecon ttrazodone 25 mg po bid and q 12 hours prn agitationd uloxetine 20 mg qdContinue supportive care, expect continued decline.HC P invokedMon itor mood and behaviors. Psych consult prn. Health Concerns Section Related Observation LastModified by Organization Detai ls LastModified Time None Recorded Concern Status LastModified by Organization Details LastModified Time None Recorded Payers Encounter Date Sequence Insurance Name Policy Number Policy Rubio Covered Member ID Rubio Member ID Guarantor Name 10/09/2024 1 [place] [employer] Teena Gonzalez [id number] Teena Gonzalez 10/09/2024 2 [place] [facility] Teena Gonzalez [id number] Teena Gonzalez Notes Date Note Type Note Provider Name and Address Organization Details Recorded Time 10/09/2024 text/html Pt is seen today for [...] a w/c in the activity room in [facility]. She denies any pain to the left wrist Since back her left wrist is wrapped in ally and wrap. She is to elevate left wrist on 3 pillows and fu in one week. She has oxycodone 5mg po q 6hours prn pain. Positive cms to distal fingers and mild swelling improving. Arm elevated on 3 pillows. Edie Serna, TREVON [address] [facility], [address], [place], [address], [facility] [employer] 10/09/2024 15:39:05 OBGyn Episode No OBEpisode recorded.
== END 2024-10-16 15:08 | disposition home or self-care (01) ==
LOC: HO.HOS 14:16
PROVIDERS: Visit Provider Orthopaedic Surgery
DX: S52.502A Unspecified fracture of the lower end of left radius, initial encounter for closed fracture (principal); G30.9 Alzheimer's disease, unspecified; F02.80 Dementia in other diseases classified elsewhere, unspecified severity, without behavioral disturbance, psychotic disturbance, mood disturbance, and anxiety
CPT/HCPCS: 99024

== ENCOUNTER → 2024-10-16 14:23 | Outpatient (BNV) | payer MEDICARE, MEDICAID, SELFPAY | PROVIDERS: Visit Provider Radiology Diagnostic Radiology | DX: M25.532 Pain in left wrist (principal) | CPT/HCPCS: 73110 ==